=== PATIENT | female | born 1980 | race American Indian/Alaskan Native ===

== ENCOUNTER 2016-08-31 13:30 | Emergency (ER) | payer SELFPAY ==
[2016-08-31 13:51] VITALS: BP 151/94
[2016-08-31 14:11] LABS: Basophils % (Auto) 1.3 % (0.0-1.8); Eosinophils % (Auto) 1.6 % (0.0-4.3); Hematocrit 32.1 % (30.3-42.9); Mean Corpuscular HGB Conc 31 % (30-34); Mean Corpuscular Volume 78 fl (79-97); Red Blood Count 4.15 M/mm3 (3.65-5.03); Red Cell Distribution Width 18.2 % (13.2-15.2); White Blood Count 3.6 K/mm3 (4.5-11.0)
[2016-08-31 14:12] LABS: Mean Corpuscular Hemoglobin 24 pg (28-32); Platelet Count 99 K/mm3 (140-440)
[2016-08-31 14:30] LABS: Anion Gap 17 mmol/L; Blood Urea Nitrogen 9 mg/dL (7-17); Calcium 8.9 mg/dL (8.4-10.2); Carbon Dioxide 24 mmol/L (22-30); Chloride 99.3 mmol/L (98-107); Glucose 85 mg/dL (65-100); Potassium 3.6 mmol/L (3.6-5.0); Sodium 137 mmol/L (137-145)
--- NOTE | 2016-09-03 01:42 | ED Elopement Review ---
ED Pt Elopement review - Results review Lab results: Laboratory Tests 08/31/16 08/31/16 08/31/16 13:56 13:56 13:56 WBC 3.6 L RBC 4.15 Hgb 10.0 L Hct 32.1 MCV 78 L MCH 24 L MCHC 31 RDW 18.2 H Plt Count 99 L Lymph % (Auto) 29.2 Guthrie % (Auto) 13.5 H Eos % (Auto) 1.6 Baso % (Auto) 1.3 Lymph # 1.1 L Guthrie # 0.5 Eos # 0.1 Baso # 0.0 Seg Neutrophils % 54.4 Seg Neutrophils # 2.0 Sodium 137 Potassium 3.6 Chloride 99.3 Carbon Dioxide 24 Anion Gap 17 BUN 9 Creatinine 0.6 L Estimated GFR > 60 BUN/Creatinine Ratio 15.00 Glucose 85 Calcium 8.9 Troponin T < 0.010 HCG, Qual Negative 08/31/16 16:37 WBC RBC Hgb Hct MCV MCH MCHC RDW Plt Count Lymph % (Auto) Guthrie % (Auto) Eos % (Auto) Baso % (Auto) Lymph # Guthrie # Eos # Baso # Seg Neutrophils % Seg Neutrophils # Sodium Potassium Chloride Carbon Dioxide Anion Gap BUN Creatinine Estimated GFR BUN/Creatinine Ratio Glucose Calcium Troponin T < 0.010 HCG, Qual - Call Back decision Pt Call Back Decision: Pt to F/U with PMD
== END 2016-09-01 03:20 | disposition left against medical advice (07) ==
LOC: ED 13:30
DX: R07.9 Chest pain, unspecified (principal); Z53.21 Procedure and treatment not carried out due to patient leaving prior to being seen by health care provider
CPT/HCPCS: 36415; 80048; 84484; 84703; 85025; 93005; 93010

== ENCOUNTER 2016-09-01 10:50 | Emergency (ER) | payer SELFPAY ==
[2016-09-01 11:20] VITALS: BP 118/75
--- NOTE | 2016-09-01 11:25 | Emergency Department Report ---
Chief Complaint: Chest Pain Stated Complaint: CHEST PAIN Time Seen by Provider: 09/01/16 11:20 - HPI History of Present Illness: 36-year-old -[place] female with a past medical history of hypertension scoliosis and a history of bronchitis in the past comes in today for chest pain shortness of breathing that started on . Patient reports that she had a panic attack on and then she started having chest pains a little bit later. Denies any nausea vomiting. No fever no chills. Patient reports that the pain is constant but will be sharp when she bends over or lifts anything. Denies any diaphoresis no radiation of the pain. - Exam Vital Signs: Vital Signs 09/01/16 11:14 Temperature 98.3 F Pulse Rate 85 Respiratory 20 Rate Blood Pressure 118/75 O2 Sat by Pulse 100 Oximetry Physical Exam: Alert and oriented 3. Cardiovascular S1-S2 regular rate and rhythm respiratory clear to auscultation bilateral. Some chest tenderness with palpation left upper chest and midsternal. Abdomen soft nontender nondistended bowel sounds throughout. [facility] screening note: Focused history and physical exam performed. Due to findings the following was ordered: Patient's been evaluated by this provider in [facility]. Chest pain protocol has been ordered. Patient will be evaluated in the main ER ED Disposition for [facility] Condition: Stable
[2016-09-01 11:51] LABS: Basophils % (Auto) 1.2 % (0.0-1.8); Eosinophils % (Auto) 2.2 % (0.0-4.3); Hematocrit 28.4 % (30.3-42.9); Hemoglobin 9.1 gm/dl (10.1-14.3); Mean Corpuscular HGB Conc 32 % (30-34); Mean Corpuscular Volume 77 fl (79-97); Red Blood Count 3.67 M/mm3 (3.65-5.03); Red Cell Distribution Width 17.6 % (13.2-15.2); White Blood Count 3.6 K/mm3 (4.5-11.0)
[2016-09-01 11:55] LABS: Mean Corpuscular Hemoglobin 25 pg (28-32); Platelet Count 88 K/mm3 (140-440)
[2016-09-01 12:14] LABS: Alanine Aminotransferase 15 units/L (7-56); Albumin/Globulin Ratio 1.2 %; Alkaline Phosphatase 52 units/L (35-129); Anion Gap 18 mmol/L; BUN/Creatinine Ratio 16.66; Bilirubin,Direct < 0.2 mg/dL (0-0.2); Bilirubin,Total 0.2 mg/dL (0.1-1.2); Blood Urea Nitrogen 10 mg/dL (7-17); Calcium 8.8 mg/dL (8.4-10.2); Carbon Dioxide 23 mmol/L (22-30); Creatine Kinase 70 units/L (30-135); Creatine Kinase MB 1.1 ng/mL (0.0-4.0); Glucose 98 mg/dL (65-100); Lipase 29 units/L (13-60); Potassium 3.7 mmol/L (3.6-5.0); Sodium 137 mmol/L (137-145); Total Protein 7.4 g/dL (6.3-8.2)
[2016-09-01 18:02] LABS: Creatine Kinase MB 1.1 ng/mL (0.0-4.0)
[2016-09-01 18:04] LABS: Creatine Kinase 64 units/L (30-135)
== END 2016-09-01 20:24 | disposition left against medical advice (07) ==
LOC: ED 10:50
DX: R07.89 Other chest pain (principal); Z53.21 Procedure and treatment not carried out due to patient leaving prior to being seen by health care provider
CPT/HCPCS: 36415; 80048; 80074; 82550; 82553; 83690; 84484; 84702; 85025; 93005; 93010

== ENCOUNTER 2016-10-28 00:15 | Emergency (ER) | payer SELFPAY ==
[2016-10-28 01:55] LABS: Bacteria,Urine 1+ /HPF (Negative); Bilirubin,Urine NEG (Negative); Blood,Urine LG (Negative); Ketones,Urine NEG (Negative); Leukocyte Esterase,Urine SM (Negative); Mucus,Urine 2+ /HPF; Nitrite,Urine NEG (Negative); Urobilinogen,Urine < 2.0 mg/dL (<2.0)
[2016-10-28 02:11] LABS: RBC,Urine > 182.0 /HPF (0.0-6.0)
[2016-10-28] MEDS ORDERED: TORADOL IM ONE (03:47)
[2016-10-28] MEDS ORDERED: VALIUM PO ONE (03:47)
--- NOTE | 2016-10-28 03:48 | Emergency Department Report ---
ED Back Pain/Injury HPI - General Chief Complaint: Back Pain/Injury Stated Complaint: BACK PAIN/POSS STRAINED MUSCLE Time Seen by Provider: 10/28/16 03:02 Source: patient Limitations: No Limitations - History of Present Illness Initial Comments: 36-year-old female past medical history hypertension presents with complaint of mid back pain status post bending down to hand picker an object she dropped at work. Patient states that when she stood up and straightened out her back she felt sharp spasm in the right upper midportion of her back. This occurred approximately 3 days ago. Patient took Motrin at home with minimal to no relief of her pain. Patient currently complaining of spastic back pain. Denies any chest pain no nausea no vomiting no fever no chills no shortness of breath reported. No upper or lower extremity paresthesias reported. Patient is fully ambulatory without assistance Complaint: back pain Onset/Timin -: days(s) Place: home Radiation: none Severity: moderate Severity scale (0 -10): 7 Quality: sharp, other (spasm) Context: while lifting, turning/twisting, bending - Related Data Previous Rx's Medication Instructions Recorded Last Taken Type Cyclobenzaprine [Flexeril] 10 mg PO TID PRN #12 tablet 10/28/16 Unknown Rx Naproxen [Naprosyn TAB] 500 mg PO BID PRN #25 tablet 10/28/16 Unknown Rx Allergies Allergy/AdvReac Type Severity Reaction Status Date / Time No Known Allergies Allergy Unverified 08/31/16 13:47 ED Review of Systems ROS: Stated complaint: BACK PAIN/POSS STRAINED MUSCLE Other details as noted in HPI Constitutional: denies: chills, fever Eyes: denies: eye pain, eye discharge, vision change ENT: denies: ear pain, throat pain Respiratory: denies: cough, shortness of breath, wheezing Cardiovascular: denies: chest pain, palpitations Endocrine: no symptoms reported Gastrointestinal: denies: abdominal pain, nausea, diarrhea Genitourinary: denies: urgency, dysuria, discharge Musculoskeletal: denies: back pain, joint swelling, arthralgia Skin: denies: rash, lesions Neurological: denies: headache, weakness, paresthesias Psychiatric: denies: anxiety, depression Hematological/Lymphatic: denies: easy bleeding, easy bruising ED Past Medical Hx - Past Medical History Previous Medical History?: Yes Hx Hypertension: Yes Hx Headaches / Migraines: Yes Additional medical history: anxiety - Surgical History Past Surgical History?: No - Social History Smoking Status: Never Smoker Substance Use Type: None - Medications Home Medications: Home Medications Medication Instructions Recorded Confirmed Last Taken Type Cyclobenzaprine [Flexeril] 10 mg PO TID PRN #12 tablet 10/28/16 Unknown Rx Naproxen [Naprosyn TAB] 500 mg PO BID PRN #25 tablet 10/28/16 Unknown Rx ED Physical Exam - General Limitations: No Limitations General appearance: alert, in no apparent distress - Head Head exam: Present: atraumatic, normocephalic - Eye Eye exam: Present: normal appearance, PERRL, EOMI - ENT ENT exam: Present: mucous membranes moist - Neck Neck exam: Present: normal inspection - Respiratory Respiratory exam: Present: normal lung sounds bilaterally. Absent: respiratory distress - Cardiovascular Cardiovascular Exam: Present: regular rate, normal rhythm. Absent: systolic murmur, diastolic murmur, rubs, gallop - GI/Abdominal GI/Abdominal exam: Present: soft, normal bowel sounds - Extremities Exam Extremities exam: Present: normal inspection - Back Exam Back exam: Present: normal inspection, muscle spasm (muscle spasm right side trapezius region), paraspinal tenderness - Neurological Exam Neurological exam: Present: alert, oriented X3, CN II-XII intact, normal gait - Psychiatric Psychiatric exam: Present: normal affect, normal mood - Skin Skin exam: Present: warm, dry, intact, normal color. Absent: rash ED Course Vital Signs 10/28/16 10/28/16 00:45 04:14 Temperature 98.4 F Pulse Rate 85 Respiratory 18 20 Rate Blood Pressure 152/99 O2 Sat by Pulse 100 Oximetry ED Medical Decision Making - Medical Decision Making A/P: Back muscle spasm, trapezius muscle strain 1-patient is fully ambulatory no saddle paresthesias the upper lobectomy paresthesias strength is 5 out of 5 all extremities no signs of cord compression or cauda equina no bladder or bowel incontinence reported by patient , no direct trauma to spine no falls 2-patient feels significant relief of pain with Valium and Toradol. 3-discharge patient with course of naproxen and Flexeril 4-patient has no urinary symptoms currently on her menstrual period which accounts for WBCs and blood in urine. 5- no signs of herpetic lesions on back no shingles Critical care attestation.: If time is entered above; I have spent that time in minutes in the direct care of this critically ill patient, excluding procedure time. ED Disposition Clinical Impression: Back muscle spasm Disposition: DISCHARGED TO HOME OR SELFCARE Is pt being admited?: No Does the pt Need Aspirin: No Condition: Stable Instructions: Muscle Spasm (ED), Back Pain (ED) Prescriptions: Cyclobenzaprine [Flexeril] 10 mg PO TID PRN #12 tablet PRN Reason: Muscle Spasm Naproxen [Naprosyn TAB] 500 mg PO BID PRN #25 tablet PRN Reason: Pain Referrals: [facility] [Provider Group] - 3-5 Days Forms: Work/School Release Form(ED) Time of Disposition: 05:45
[2016-10-28 05:45] VITALS: BP 145/90
== END 2016-10-28 06:13 | disposition home or self-care (01) ==
LOC: ED 00:15
DX: M62.830 Muscle spasm of back (principal); I10 Essential (primary) hypertension; G43.909 Migraine, unspecified, not intractable, without status migrainosus
CPT/HCPCS: 81001; 81025; 96372; 99283; J1885

== ENCOUNTER 2016-12-12 14:04 | Emergency (ER) | payer SELFPAY ==
[2016-12-12 14:32] VITALS: BP 137/85
[2016-12-12 15:27] LABS: Anion Gap 19 mmol/L; BUN/Creatinine Ratio 17.14; Basophils % (Auto) 0.7 % (0.0-1.8); Blood Urea Nitrogen 12 mg/dL (7-17); Calcium 9.2 mg/dL (8.4-10.2); Carbon Dioxide 21 mmol/L (22-30); Chloride 101.8 mmol/L (98-107); Eosinophils % (Auto) 0.3 % (0.0-4.3); Glucose 97 mg/dL (65-100); Mean Corpuscular HGB Conc 31 % (30-34); Mean Corpuscular Hemoglobin 23 pg (28-32); Mean Corpuscular Volume 74 fl (79-97); Platelet Count 106 K/mm3 (140-440); Potassium 3.4 mmol/L (3.6-5.0); Red Blood Count 3.89 M/mm3 (3.65-5.03); Red Cell Distribution Width 16.7 % (13.2-15.2); Sodium 138 mmol/L (137-145); White Blood Count 4.8 K/mm3 (4.5-11.0)
[2016-12-13] MEDS ORDERED: NITRO-BID 2% TP ONE (01:39)
[2016-12-13] MEDS ORDERED: ZOFRAN IV ONE (01:39)
[2016-12-13] MEDS ORDERED: MORPHINE IV ONE (01:39)
[2016-12-13] MEDS ORDERED: ASPIRIN PO ONE (01:40)
--- NOTE | 2016-12-13 01:50 | Emergency Department Report ---
HPI - General Chief Complaint: Chest Pain Time Seen by Provider: 12/13/16 01:31 - HPI HPI: Room 6 The patient is a 36-year-old female presenting with a chief complaint of chest pain. The patient states today at noon she developed substernal chest pain of sharp in nature and associated with diaphoresis shortness of breath and nausea without vomiting. Patient states the pain has been constant waxing and waning and increases with exertion. Patient currently gives her chest pain score of 7/ 10. Patient states her last stress test occurred in 2010 she's never had a cardiac catheterization. Patient denies any history of fever Location: Substernal chest Duration: Constant since noon Quality: Sharp Severity: 7/10 Modifying factors: Exertion increases chest pain Context: [see above] Mode of transportation: Unknown ED Past Medical Hx - Past Medical History Previous Medical History?: Yes Hx Hypertension: Yes Hx Headaches / Migraines: Yes Additional medical history: anxiety - Surgical History Past Surgical History?: No - Family History Family history: no significant - Social History Smoking Status: Never Smoker Substance Use Type: None (denies illicit drug use), Alcohol (occasional) - Medications Home Medications: Home Medications Medication Instructions Recorded Confirmed Last Taken Type Cyclobenzaprine [Flexeril] 10 mg PO TID PRN #12 tablet 10/28/16 Unknown Rx Naproxen [Naprosyn TAB] 500 mg PO BID PRN #25 tablet 10/28/16 Unknown Rx ED Review of Systems ROS: Stated complaint: CHEST PAIN/SOB/NAUSEA Other details as noted in HPI Comment: All other systems reviewed and negative Constitutional: diaphoresis Eyes: denies: eye pain, eye discharge, vision change ENT: denies: ear pain, throat pain Respiratory: shortness of breath Cardiovascular: chest pain Endocrine: no symptoms reported Gastrointestinal: nausea. denies: vomiting Genitourinary: denies: urgency, dysuria, discharge Musculoskeletal: denies: back pain, joint swelling, arthralgia Skin: denies: rash, lesions Neurological: as per HPI Psychiatric: denies: anxiety, depression Hematological/Lymphatic: denies: easy bleeding, easy bruising Physical Exam - Physical Exam Vital Signs: Vital Signs 12/12/16 14:26 Temperature 98.6 F Pulse Rate 91 H Respiratory 20 Rate Blood Pressure 137/85 O2 Sat by Pulse 100 Oximetry Physical Exam: GENERAL: The patient is well-developed well-nourished female lying on stretcher not appearing to be in acute distress. [] HEENT: Normocephalic. Atraumatic. Extraocular motions are intact. Patient has moist mucous membranes. NECK: Supple. Trachea midline CHEST/LUNGS: Clear to auscultation. There is no respiratory distress noted. HEART/CARDIOVASCULAR: Regular. There is no tachycardia. There is no gallop rub or murmur. ABDOMEN: Abdomen is soft, nontender. Patient has normal bowel sounds. There is no abdominal distention. SKIN: There is no rash. There is no edema. There is no diaphoresis. NEURO: The patient is awake, alert, and oriented. The patient is cooperative. The patient has normal speech MUSCULOSKELETAL: There is no evidence of acute injury. ED Course Vital Signs 12/12/16 14:26 Temperature 98.6 F Pulse Rate 91 H Respiratory 20 Rate Blood Pressure 137/85 O2 Sat by Pulse 100 Oximetry ED Medical Decision Making - Lab Data Result diagrams: 12/12/16 14:45 12/12/16 14:45 Laboratory Tests 12/12/16 12/12/16 12/12/16 14:45 14:45 14:45 WBC 4.8 RBC 3.89 Hgb 9.0 L Hct 29.0 L MCV 74 L MCH 23 L MCHC 31 RDW 16.7 H Plt Count 106 L Lymph % (Auto) 15.0 Armstrong % (Auto) 12.0 H Eos % (Auto) 0.3 Baso % (Auto) 0.7 Lymph # 0.7 L Armstrong # 0.6 Eos # 0.0 Baso # 0.0 Seg Neutrophils % 72.0 H Seg Neutrophils # 3.4 Sodium 138 Potassium 3.4 L Chloride 101.8 Carbon Dioxide 21 L Anion Gap 19 BUN 12 Creatinine 0.7 Estimated GFR > 60 BUN/Creatinine Ratio 17.14 Glucose 97 Calcium 9.2 Troponin T < 0.010 HCG, Qual Negative 12/12/16 12/12/16 18:13 20:51 WBC RBC Hgb Hct MCV MCH MCHC RDW Plt Count Lymph % (Auto) Armstrong % (Auto) Eos % (Auto) Baso % (Auto) Lymph # Armstrong # Eos # Baso # Seg Neutrophils % Seg Neutrophils # Sodium Potassium Chloride Carbon Dioxide Anion Gap BUN Creatinine Estimated GFR BUN/Creatinine Ratio Glucose Calcium Troponin T < 0.010 < 0.010 HCG, Qual - EKG Data -: EKG Interpreted by Me EKG shows normal: sinus rhythm Rate: normal - EKG Data When compared to previous EKG there are: previous EKG unavailable Interpretation: other (no ischemic changes seen) - Radiology Data Radiology results: image reviewed (chest x-ray) interpreted by me: Chest [id number]? No focal infiltrates, no pneumothorax - Differential Diagnosis ACS, exertional angina, pericarditis, GERD, pneumonia Critical care attestation.: If time is entered above; I have spent that time in minutes in the direct care of this critically ill patient, excluding procedure time. ED Disposition Clinical Impression: Chest pain Disposition: DC-09 OP ADMIT IP TO THIS HOSP Is pt being admited?: Yes Does the pt Need Aspirin: Yes Condition: Fair Instructions: Chest Pain (ED) Referrals: PRIMARY CARE, [Primary Care Provider] - 3-5 Days Time of Disposition: 02:11 (hospitalist paged)
--- NOTE | 2016-12-13 07:14 | XRay Report ---
Single view chest: History: Chest pain. Findings: Normal cardiomediastinal silhouette. Trachea is midline. No consolidation, pneumothorax or pleural effusion. Impression: No acute cardiopulmonary findings.
== END 2016-12-13 02:38 | disposition admitted as inpatient to this hospital (09) ==
LOC: ED 14:04
DX: R07.2 Precordial pain (principal); R06.02 Shortness of breath; R11.0 Nausea; F41.9 Anxiety disorder, unspecified; I10 Essential (primary) hypertension; G43.909 Migraine, unspecified, not intractable, without status migrainosus
CPT/HCPCS: 36415; 71010; 80048; 84484; 84703; 85025; 93005; 93010; 99285

== ENCOUNTER 2017-01-26 12:16 | Emergency (ER) | payer SELFPAY ==
[2017-01-26 12:26] VITALS: BP 153/95
[2017-01-26] MEDS ORDERED: TORADOL IM ONE (12:49)
--- NOTE | 2017-01-26 12:54 | Emergency Department Report ---
ED General Adult HPI - General Chief complaint: Pain General Stated complaint: BODY PAIN HIGH BLOOD PRESSURE Time Seen by Provider: 01/26/17 12:28 Source: patient Mode of arrival: Ambulatory Limitations: No Limitations - History of Present Illness Initial comments: This is a 36-year-old female nontoxic, well nourished in appearance, no acute signs of distress the patient's ED complaining of body aches/pain and medication refill. Patient stated she developed body aches since 1996 due to scoliosis and receiving epidural. Patient stated that she had body ache and pain. Patient denies any recent trauma or injuries. Patient also states she takes lisinopril 25 mg daily that is prescribed by her primary care doctor the patient stated she just moved April 2016 and does not have a primary care doctor to follow. Patient denies any numbness, tingling, chest pain, shortness of breath, stiff neck, headache, fever, chills, abdominal pain or pelvic pain. Patient denies any allergies. History of hypertension and migraine headaches. Patient stated body aches is a little relief with Percocet and patient is requesting for refill of Percocet medication. MD Complaint: body aches/medication refill -: Gradual, year(s) Radiation: non-radiation Severity scale (0 -10): 9 Quality: aching Consistency: constant Improves with: movement (Percocet) Associated Symptoms: denies other symptoms. denies: confusion, chest pain, cough, diaphoresis, fever/chills, headaches, loss of appetite, malaise, nausea/ vomiting, rash, seizure, shortness of breath, syncope, weakness Treatments Prior to Arrival: none - Related Data Previous Rx's Medication Instructions Recorded Last Taken Type Cyclobenzaprine [Flexeril] 10 mg PO TID PRN #12 tablet 10/28/16 Unknown Rx Naproxen [Naprosyn TAB] 500 mg PO BID PRN #25 tablet 10/28/16 Unknown Rx Ibuprofen [Motrin 600 MG tab] 600 mg PO Q8H PRN #30 tablet 01/26/17 Unknown Rx Lisinopril [Zestril TAB] 25 mg PO QDAY #15 tab 01/26/17 Unknown Rx Allergies Allergy/AdvReac Type Severity Reaction Status Date / Time No Known Allergies Allergy Verified 12/12/16 14:25 ED Review of Systems ROS: Stated complaint: BODY PAIN HIGH BLOOD PRESSURE Other details as noted in HPI Constitutional: denies: chills, fever Eyes: denies: eye pain, eye discharge, vision change ENT: denies: ear pain, throat pain Respiratory: denies: cough, shortness of breath, wheezing Cardiovascular: denies: chest pain, palpitations Endocrine: no symptoms reported Gastrointestinal: denies: abdominal pain, nausea, diarrhea Genitourinary: denies: urgency, dysuria, discharge Musculoskeletal: denies: back pain, joint swelling, arthralgia Skin: denies: rash, lesions Neurological: denies: headache, weakness, paresthesias Psychiatric: denies: anxiety, depression Hematological/Lymphatic: denies: easy bleeding, easy bruising 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, Scoliosis - Surgical History Past Surgical History?: No - Social History Smoking Status: Never Smoker Substance Use Type: Alcohol, Non Opiate Pain, Prescribed - Medications Home Medications: Home Medications Medication Instructions Recorded Confirmed Last Taken Type Cyclobenzaprine [Flexeril] 10 mg PO TID PRN #12 tablet 10/28/16 Unknown Rx Naproxen [Naprosyn TAB] 500 mg PO BID PRN #25 tablet 10/28/16 Unknown Rx Ibuprofen [Motrin 600 MG tab] 600 mg PO Q8H PRN #30 tablet 01/26/17 Unknown Rx Lisinopril [Zestril TAB] 25 mg PO QDAY #15 tab 01/26/17 Unknown Rx ED Physical Exam - General Limitations: No Limitations General appearance: alert, in no apparent distress - Head Head exam: Present: atraumatic, normocephalic, normal inspection - Eye Eye exam: Present: normal appearance, PERRL, EOMI. Absent: scleral icterus, conjunctival injection, nystagmus, periorbital swelling, periorbital tenderness Pupils: Present: normal accommodation - ENT ENT exam: Present: normal exam, normal orophraynx, mucous membranes moist, TM's normal bilaterally, normal external ear exam - Neck Neck exam: Present: normal inspection, full ROM. Absent: tenderness, meningismus, lymphadenopathy, thyromegaly - Respiratory Respiratory exam: Present: normal lung sounds bilaterally. Absent: respiratory distress, wheezes, rales, rhonchi, stridor, chest wall tenderness, accessory muscle use, decreased breath sounds, prolonged expiratory - Cardiovascular Cardiovascular Exam: Present: regular rate, normal rhythm, normal heart sounds. Absent: bradycardia, tachycardia, irregular rhythm, systolic murmur, diastolic murmur, rubs, gallop - GI/Abdominal GI/Abdominal exam: Present: soft, normal bowel sounds. Absent: distended, tenderness, guarding, rebound, rigid, diminished bowel sounds - Rectal Rectal exam: Present: deferred - Extremities Exam Extremities exam: Present: normal inspection, full ROM, normal capillary refill. Absent: tenderness, pedal edema, joint swelling, calf tenderness - Back Exam Back exam: Present: normal inspection, full ROM. Absent: tenderness, CVA tenderness (R), CVA tenderness (L), muscle spasm, paraspinal tenderness, vertebral tenderness, rash noted - Neurological Exam Neurological exam: Present: alert, oriented X3, CN II-XII intact, normal gait, reflexes normal - Expanded Neurological Exam Expanded Patient oriented to: Present: person, place, time Speech: Present: fluid speech Cranial nerves: EOM's Intact: Normal, Gag Reflex: Normal, Tongue Deviation: Normal, Nystagmus: Normal, Facial Sensation: Normal, Facial Palsy with Forehead Movement: Normal, Facial Palsy without Forehead Movement: Normal Cerebellar function: Finger to Nose: Normal, Heel to Miller: Normal, Romberg: Normal Upper motor neuron: Varinder Neglect: Normal, Pronator Drift: Normal, Babinski Sign : Normal, Sensory Extinction: Normal Sensory exam: Upper Extremity Light Touch: Normal, Upper Extremity Pin Prick: Normal, Upper Extremity Temperature: Normal, UE 2 Point Discrimination: Normal, Lower Extremity Light Touch: Normal, Lower Extremity Pin Prick: Normal, Lower Extremity Temperature: Normal, LE 2 Point Discrimination: Normal Motor strength exam: RUE: 5, LUE: 5, RLE: 5, LLE: 5 DTR: bicep (R): 2+, bicep (L): 2+, tricep (R): 2+, tricep (L): 2+, knee (R): 2+ , knee (L): 2+, ankle (R): 2+, ankle (L): 2+ Best Eye Response (Dusty): (4) open spontaneously Best Motor Response (Kiester): (6) obeys commands Best Verbal Response (Kiester): (5) oriented Dusty Total: 15 - Psychiatric Psychiatric exam: Present: normal affect, normal mood - Skin Skin exam: Present: warm, dry, intact, normal color. Absent: rash ED Course Vital Signs 01/26/17 01/26/17 12:20 12:59 Temperature 98.5 F Pulse Rate 78 Respiratory 18 18 Rate Blood Pressure 153/95 O2 Sat by Pulse 100 Oximetry - Reevaluation(s) Reevaluation #1: 01/26/17 12:54 Patient is able speak full sentences with no signs of distress. Reevaluation #2: 01/26/17 13:41 Patient is laying in bed comfortably and stated bodyaches has subsided after medical treatment in the ED. ED Medical Decision Making - Medical Decision Making ED course; this is a 36-year-old female that presents with body aches and medication refill 1- patient was examined myself. I notified the patient that I will prescribe patient ibuprofen as a first line of treatment and if she was never leads I refer patient to her primary care doctor. I also refilled patient's lisinopril 25 mg and instructed patient to take on a daily basis and to monitor her blood pressure in the morning, afternoon and evening time. I instructed the patient to follow up with a primary care doctor in 3-5 days or if symptoms such as dizziness, low blood pressure, fever, chills, chest pain, shortness of breath, headache nausea or vomiting return to emergency room as soon as possible. At time time of discharge, the patient does not seem toxic or ill in appearance. No acute signs of distress noted. Patient agrees to discharge treatment plan of care. No further questions noted by the patient. Critical care attestation.: If time is entered above; I have spent that time in minutes in the direct care of this critically ill patient, excluding procedure time. ED Disposition Clinical Impression: Body aches, Medication refill Disposition: DC-01 TO HOME OR SELFCARE Is pt being admited?: No Does the pt Need Aspirin: No Condition: Stable Instructions: Lisinopril (By mouth), Ibuprofen (By mouth), DASH Eating Plan (ED ), Low Sodium Diet (ED) Additional Instructions: follow up with a primary care doctor in 3-5 days or if symptoms such as dizziness, low blood pressure, fever, chills, chest pain, shortness of breath, headache nausea or vomiting return to emergency room as soon as possible. Monitor blood pressure daily morning, evening, and after noontime. Prescriptions: Ibuprofen [Motrin 600 MG tab] 600 mg PO Q8H PRN #30 tablet PRN Reason: Pain Lisinopril [Zestril TAB] 25 mg PO QDAY #15 tab Referrals: PRIMARY CAREMD [Primary Care Provider] - 3-5 Days ABEL GARZA MD [Staff Physician] - 3-5 Days YANA CHRISTIANSON MD [Staff Physician] - 3-5 Days [facility] [Outside] - 3-5 Days [facility] [Outside] - 3-5 Days Forms: Work/School Release Form(ED)
== END 2017-01-26 14:25 | disposition home or self-care (01) ==
LOC: ED 12:16
DX: M79.1 Myalgia (principal); Z76.0 Encounter for issue of repeat prescription; I10 Essential (primary) hypertension; G43.909 Migraine, unspecified, not intractable, without status migrainosus; F41.9 Anxiety disorder, unspecified; M41.9 Scoliosis, unspecified
CPT/HCPCS: 96372; 99282; J1885

== ENCOUNTER 2017-03-31 11:29 | Emergency (ER) | payer SELFPAY ==
[2017-03-31 11:45] VITALS: BP 135/81
--- NOTE | 2017-03-31 13:18 | Emergency Department Report ---
ED General Adult HPI - General Chief complaint: Extremity Injury, Upper Stated complaint: BACK PAIN/ARM PAIN POST FALL Time Seen by Provider: 03/31/17 13:14 Source: patient Mode of arrival: Ambulatory Limitations: No Limitations - History of Present Illness Initial comments: 37-year-old female presents to the ED complaining about left-sided neck pain and left lower back pain after fall 2 days ago. States that she is having aching pain without radiation. States pain is worse to her neck when she turns her head left. States pain to her lower back which is putting pressure on her left leg. States that she is able to ambulate and has no trouble with bowel movements or urination. Denies other injury. -: Gradual, days(s) (2) - Related Data Previous Rx's Medication Instructions Recorded Last Taken Type Cyclobenzaprine [Flexeril] 10 mg PO TID PRN #12 tablet 10/28/16 Unknown Rx Naproxen [Naprosyn TAB] 500 mg PO BID PRN #25 tablet 10/28/16 Unknown Rx Ibuprofen [Motrin 600 MG tab] 600 mg PO Q8H PRN #30 tablet 01/26/17 Unknown Rx Lisinopril [Zestril TAB] 25 mg PO QDAY #15 tab 01/26/17 Unknown Rx Cyclobenzaprine [Flexeril] 10 mg PO TID PRN #20 tablet 03/31/17 Unknown Rx Diclofenac Sodium 75 mg PO BID #20 tablet. 03/31/17 Unknown Rx Allergies Allergy/AdvReac Type Severity Reaction Status Date / Time No Known Allergies Allergy Verified 12/12/16 14:25 ED Review of Systems ROS: Stated complaint: BACK PAIN/ARM PAIN POST FALL Other details as noted in HPI Constitutional: denies: chills, fever Eyes: denies: eye pain, eye discharge, vision change ENT: denies: ear pain, throat pain Respiratory: denies: cough, shortness of breath, wheezing Cardiovascular: denies: chest pain, palpitations Endocrine: no symptoms reported Gastrointestinal: denies: abdominal pain, nausea, diarrhea Genitourinary: denies: urgency, dysuria, discharge Musculoskeletal: back pain, myalgia. denies: joint swelling, arthralgia Skin: denies: rash, lesions Neurological: denies: headache, weakness, paresthesias Psychiatric: denies: anxiety, depression Hematological/Lymphatic: denies: easy bleeding, easy bruising ED Past Medical Hx - Past Medical History Hx Hypertension: Yes Hx Headaches / Migraines: Yes Additional medical history: anxiety, skin rash, 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, Scoliosis - Social History Smoking Status: Never Smoker Substance Use Type: None - Medications Home Medications: Home Medications Medication Instructions Recorded Confirmed Last Taken Type Cyclobenzaprine [Flexeril] 10 mg PO TID PRN #12 tablet 10/28/16 Unknown Rx Naproxen [Naprosyn TAB] 500 mg PO BID PRN #25 tablet 10/28/16 Unknown Rx Ibuprofen [Motrin 600 MG tab] 600 mg PO Q8H PRN #30 tablet 01/26/17 Unknown Rx Lisinopril [Zestril TAB] 25 mg PO QDAY #15 tab 01/26/17 Unknown Rx Cyclobenzaprine [Flexeril] 10 mg PO TID PRN #20 tablet 03/31/17 Unknown Rx Diclofenac Sodium 75 mg PO BID #20 tablet. 03/31/17 Unknown Rx ED Physical Exam - General Limitations: No Limitations General appearance: alert, in no apparent distress - Head Head exam: Present: atraumatic, normocephalic - Eye Eye exam: Present: normal appearance - ENT ENT exam: Present: mucous membranes moist - Neck Neck exam: Present: normal inspection, tenderness (paraspinal muscle tenderness to the left. No vertebral tenderness) - Respiratory Respiratory exam: Present: normal lung sounds bilaterally. Absent: respiratory distress - Cardiovascular Cardiovascular Exam: Present: regular rate, normal rhythm. Absent: systolic murmur, diastolic murmur, rubs, gallop - GI/Abdominal GI/Abdominal exam: Present: soft, normal bowel sounds - Extremities Exam Extremities exam: Present: normal inspection - Back Exam Back exam: Present: normal inspection, paraspinal tenderness. Absent: vertebral tenderness - Neurological Exam Neurological exam: Present: alert, oriented X3 - Psychiatric Psychiatric exam: Present: normal affect, normal mood - Skin Skin exam: Present: warm, dry, intact, normal color. Absent: rash ED Course Vital Signs 03/31/17 11:40 Temperature 98.5 F Pulse Rate 111 H Respiratory 20 Rate Blood Pressure 135/81 O2 Sat by Pulse 100 Oximetry ED Medical Decision Making - Medical Decision Making Patient is resting comfortably at this time. Patient has no bony tenderness. Patient vital signs are stable in no acute distress at this time. Critical care attestation.: If time is entered above; I have spent that time in minutes in the direct care of this critically ill patient, excluding procedure time. ED Disposition Clinical Impression: Cervical strain, acute, Lumbar strain Disposition: DC-01 TO HOME OR SELFCARE Is pt being admited?: No Does the pt Need Aspirin: No Condition: Good Instructions: Muscle Strain (ED) Prescriptions: Cyclobenzaprine [Flexeril] 10 mg PO TID PRN #20 tablet PRN Reason: Muscle Spasm Diclofenac Sodium 75 mg PO BID #20 tablet. Referrals: PRIMARY CARE, [Primary Care Provider] - 3-5 Days Forms: Work/School Release Form(ED) Time of Disposition: 13:18
== END 2017-03-31 13:44 | disposition home or self-care (01) ==
LOC: ED 11:29
DX: S16.1XXA Strain of muscle, fascia and tendon at neck level, initial encounter (principal); S39.012A Strain of muscle, fascia and tendon of lower back, initial encounter; I10 Essential (primary) hypertension; G43.909 Migraine, unspecified, not intractable, without status migrainosus; X58.XXXA Exposure to other specified factors, initial encounter; Y93.89 Activity, other specified; Y92.89 Other specified places as the place of occurrence of the external cause; Y99.8 Other external cause status
CPT/HCPCS: 81025; 99283

== ENCOUNTER 2017-04-11 15:39 | Emergency (ER) | payer SELFPAY ==
[2017-04-11] MEDS ORDERED: TORADOL IM ONE (20:44)
--- NOTE | 2017-04-11 20:51 | Emergency Department Report ---
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 -: unknown (this is chronic pain ) Location: back, upper extremity, lower extremity Radiation: back, extremity Severity scale (0 -10): 4 Quality: aching Consistency: constant Improves with: rest, other (prn pain meds ) Worsens with: other (prolonged standing sitting job duties ) Associated Symptoms: denies: confusion, chest pain, cough, diaphoresis, fever/ chills, headaches, loss of appetite, malaise, nausea/vomiting, rash, seizure, shortness of breath, syncope, weakness Treatments Prior to Arrival: none - Related Data Previous Rx's Medication Instructions Recorded Last Taken Type Cyclobenzaprine [Flexeril] 10 mg PO TID PRN #12 tablet 10/28/16 Unknown Rx Naproxen [Naprosyn TAB] 500 mg PO BID PRN #25 tablet 10/28/16 Unknown Rx Ibuprofen [Motrin 600 MG tab] 600 mg PO Q8H PRN #30 tablet 01/26/17 Unknown Rx Lisinopril [Zestril TAB] 25 mg PO QDAY #15 tab 01/26/17 Unknown Rx Cyclobenzaprine [Flexeril] 10 mg PO TID PRN #20 tablet 03/31/17 Unknown Rx Diclofenac Sodium 75 mg PO BID #20 tablet. 03/31/17 Unknown Rx Diclofenac Sodium [Voltaren] 1 applic TP TID PRN #1 tube 04/11/17 Unknown Rx Allergies Allergy/AdvReac Type Severity Reaction Status Date / Time No Known Allergies Allergy Verified 04/11/17 15:42 ED Review of Systems ROS: Stated complaint: PAIN ALL OVER Other details as noted in HPI Constitutional: denies: chills, fever Eyes: denies: eye pain, eye discharge, vision change ENT: denies: ear pain, throat pain Respiratory: denies: cough, shortness of breath, wheezing Cardiovascular: denies: chest pain, palpitations Endocrine: no symptoms reported Gastrointestinal: denies: abdominal pain, nausea, diarrhea Genitourinary: denies: urgency, dysuria, discharge Musculoskeletal: back pain, arthralgia, myalgia Skin: denies: rash, lesions Neurological: denies: headache, weakness, numbness, paresthesias, confusion, abnormal gait, vertigo Psychiatric: denies: anxiety, depression Hematological/Lymphatic: denies: easy bleeding, easy bruising ED Past Medical Hx - Past Medical History Hx Hypertension: Yes Hx Headaches / Migraines: Yes Additional medical history: anxiety, skin rash, 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, Scoliosis - Social History Smoking Status: Never Smoker Substance Use Type: None - Medications Home Medications: Home Medications Medication Instructions Recorded Confirmed Last Taken Type Cyclobenzaprine [Flexeril] 10 mg PO TID PRN #12 tablet 10/28/16 Unknown Rx Naproxen [Naprosyn TAB] 500 mg PO BID PRN #25 tablet 10/28/16 Unknown Rx Ibuprofen [Motrin 600 MG tab] 600 mg PO Q8H PRN #30 tablet 01/26/17 Unknown Rx Lisinopril [Zestril TAB] 25 mg PO QDAY #15 tab 01/26/17 Unknown Rx Cyclobenzaprine [Flexeril] 10 mg PO TID PRN #20 tablet 03/31/17 Unknown Rx Diclofenac Sodium 75 mg PO BID #20 tablet.dr 03/31/17 Unknown Rx Diclofenac Sodium [Voltaren] 1 applic TP TID PRN #1 tube 04/11/17 Unknown Rx ED Physical Exam - General Limitations: No Limitations General appearance: alert, in no apparent distress - Head Head exam: Present: atraumatic, normocephalic - Eye Eye exam: Present: normal appearance, PERRL, EOMI Pupils: Present: normal accommodation - ENT ENT exam: Present: mucous membranes moist - Neck Neck exam: Present: normal inspection, full ROM. Absent: tenderness, lymphadenopathy, thyromegaly - Respiratory Respiratory exam: Present: normal lung sounds bilaterally. Absent: respiratory distress, wheezes, stridor, chest wall tenderness - Cardiovascular Cardiovascular Exam: Present: regular rate, normal rhythm. Absent: systolic murmur, diastolic murmur, rubs, gallop - GI/Abdominal GI/Abdominal exam: Present: soft, normal bowel sounds - Rectal Rectal exam: Present: deferred - Extremities Exam Extremities exam: Present: normal inspection - Back Exam Back exam: Present: normal inspection, full ROM, tenderness, paraspinal tenderness (bilat paraspinus tenderness to deep palpation no weakness no numbness no tingling pos left straight leg raise). Absent: CVA tenderness (R), CVA tenderness (L), muscle spasm, vertebral tenderness, rash noted - Neurological Exam Neurological exam: Present: alert, oriented X3, CN II-XII intact, normal gait, reflexes normal. Absent: motor sensory deficit - Psychiatric Psychiatric exam: Present: normal affect, normal mood - Skin Skin exam: Present: warm, dry, intact, normal color. 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 Critical care attestation.: If time is entered above; I have spent that time in minutes in the direct care of this critically ill patient, excluding procedure time. ED Disposition Clinical Impression: Musculoskeletal pain Chronic back pain Qualifiers: Back pain location: low back pain Back pain laterality: bilateral Sciatica presence: with sciatica Sciatica laterality: sciatica of right side Qualified Code(s): M54.41 - Lumbago with sciatica, right side; G89.29 - Other chronic pain ; G89.29 - Other chronic pain Disposition: DC-01 TO HOME OR SELFCARE Is pt being admited?: No Does the pt Need Aspirin: No Condition: Good Instructions: Musculoskeletal Pain (ED) Prescriptions: Diclofenac Sodium [Voltaren] 1 applic TP TID PRN #1 tube PRN Reason: Pain Referrals: PRIMARY CARE, [Primary Care Provider] - 3-5 Days Forms: Work/School Release Form(ED) Time of Disposition: 21:03
[2017-04-11] MEDS ORDERED: TORADOL ONE (21:29)
[2017-04-12 02:20] VITALS: BP 122/75
== END 2017-04-11 21:32 | disposition home or self-care (01) ==
LOC: ED 15:39
DX: M54.89 Other dorsalgia (principal); G89.29 Other chronic pain; I10 Essential (primary) hypertension; G43.909 Migraine, unspecified, not intractable, without status migrainosus
CPT/HCPCS: 96372; 99282; J1885

== ENCOUNTER 2017-06-13 18:08 | Emergency (ER) | payer SELFPAY ==
[2017-06-13 18:31] VITALS: BP 160/91
[2017-06-13] MEDS ORDERED: TORADOL IM ONE (18:58)
[2017-06-13] MEDS ORDERED: FLEXERIL PO ONE (18:58)
[2017-06-13] MEDS ORDERED: ULTRAM PO ONE (18:59)
--- NOTE | 2017-06-13 19:08 | Emergency Department Report ---
ED Back Pain/Injury HPI - General Chief Complaint: Extremity Injury, Lower Stated Complaint: KNEE PAIN Time Seen by Provider: 06/13/17 18:57 Source: patient, RN notes reviewed, old records reviewed Mode of arrival: Ambulatory Limitations: No Limitations - History of Present Illness Initial Comments: NO TRAUMA A/C PAIN TOLD SHE NEEDED BREAST REDUCTION R LOW BACK PAIN RAD TO R BUTTOCKS AND LEG A/C ON FLEXERIL AND MOTRIN AT HOME BUT IT IS NOT WORKING MD Complaint: back pain -: Gradual, year(s) Similar Symptoms Previously: Yes Place: home Radiation: right leg Severity: moderate Quality: burning Consistency: intermittent Improves With: none Worsens With: other (WORK AND COLD) Context: other (WHILE AT WORK) Associated Symptoms: denies: confusion, weakness, chest pain, numbness, difficulty walking, cough, difficulty urinating - Related Data Previous Rx's Medication Instructions Recorded Last Taken Type Cyclobenzaprine [Flexeril] 10 mg PO TID PRN #12 tablet 10/28/16 Unknown Rx Ibuprofen [Motrin 600 MG tab] 600 mg PO Q8H PRN #30 tablet 01/26/17 Unknown Rx Lisinopril [Zestril TAB] 25 mg PO QDAY #15 tab 01/26/17 Unknown Rx predniSONE [Deltasone] 50 mg PO QDAY #5 tab 06/13/17 Unknown Rx Allergies Allergy/AdvReac Type Severity Reaction Status Date / Time No Known Allergies Allergy Verified 04/11/17 15:42 ED Review of Systems ROS: Stated complaint: KNEE PAIN Other details as noted in HPI Comment: All other systems reviewed and negative Musculoskeletal: back pain, other (RAD TO RLE) ED Past Medical Hx - Past Medical History anxiety, skin rash, 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, Scoliosis Family history: no significant family history ED Back Pain Physical Exam - Exam General: Vital signs noted. No distress. Alert and acting appropriately. Back/Abdomen: Yes Straight Leg Raise Pain (RLE), No Abdominal Tenderness, No Perithoracic Tenderness, No Perilumbar Tenderness, No Sacroiliac Tenderness, No Flank Tenderness Neuro: Yes Normal Sensation, Yes Normal DTR's, Yes Normal Gait, No Motor Weakness ED Course Vital Signs 06/13/17 18:27 Temperature 98 F Pulse Rate 73 Respiratory 18 Rate Blood Pressure 160/91 O2 Sat by Pulse 99 Oximetry - Reevaluation(s) Reevaluation #1: 06/13/17 19:06 TO ER W A/C SCIATICA PAIN NO FALL OR TRAUMA RAD TO RLE FROM R LUMBAR SPINE NO DYSURIA NO POINT TENDERNESS NO STEP OFF NO FEVER NO FOCAL NEURO DEF AMBULATORY MEDICATED HERE WILL CONTINUE HOME MEDS Critical care attestation.: If time is entered above; I have spent that time in minutes in the direct care of this critically ill patient, excluding procedure time. 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 FOLLOW UP WITH PCP AND OR ORTHO IF PERSISTS Referrals: PRIMARY CARE, [Primary Care Provider] - 3-5 Days BEATRICE DON MD [Staff Physician] - 3-5 Days [facility] [Outside] - 3-5 Days Time of Disposition: 19:08
== END 2017-06-13 19:26 | disposition home or self-care (01) ==
LOC: ED 18:08
DX: M54.5 Low back pain (principal); G89.29 Other chronic pain; M79.604 Pain in right leg
CPT/HCPCS: 96372; 99282; J1885

== ENCOUNTER 2017-07-16 13:25 | Emergency (ER) | payer OTHER ==
[2017-07-16 14:26] VITALS: BP 158/93
[2017-07-16] MEDS ORDERED: ASPIRIN PO ONE (14:26)
[2017-07-16 15:37] LABS: Basophils % (Auto) 0.7 % (0.0-1.8); Eosinophils # (Auto) 0.1 K/mm3 (0.0-0.4); Eosinophils % (Auto) 2.5 % (0.0-4.3); Hematocrit 34.2 % (30.3-42.9); Hemoglobin 10.8 gm/dl (10.1-14.3); Lymphocytes # (Auto) 1.2 K/mm3 (1.2-5.4); Lymphocytes % (Auto) 39.2 % (13.4-35.0); Mean Corpuscular HGB Conc 31 % (30-34); Mean Corpuscular Volume 80 fl (79-97); Monocytes # (Auto) 0.4 K/mm3 (0.0-0.8); Monocytes % (Auto) 14.9 % (0.0-7.3); Red Cell Distribution Width 17.7 % (13.2-15.2)
[2017-07-16 15:42] LABS: Mean Corpuscular Hemoglobin 25 pg (28-32); Platelet Count 93 K/mm3 (140-440)
[2017-07-16 15:44] LABS: BUN/Creatinine Ratio 14; Blood Urea Nitrogen 7 mg/dL (7-17); Calcium 9.4 mg/dL (8.4-10.2); Hemolysis Index 8
== END 2017-07-16 20:49 | disposition left against medical advice (07) ==
LOC: ED 13:25
DX: R07.9 Chest pain, unspecified (principal); Z53.21 Procedure and treatment not carried out due to patient leaving prior to being seen by health care provider
CPT/HCPCS: 36415; 80048; 84484; 85025; 93005; 93010

== ENCOUNTER 2017-07-20 11:07 | Emergency (ER) | payer SELFPAY ==
[2017-07-20 14:29] LABS: HCG Qualitative,Urine Negative (Negative)
--- NOTE | 2017-07-20 15:44 | XRay Report ---
FINAL REPORT PROCEDURE: XR FOOT 3+V RT TECHNIQUE: Right foot, three views HISTORY: pain,edema,injury COMPARISON: No prior studies are available for comparison. FINDINGS: No acute fracture or dislocation is seen. No focal osseous lesions are identified. There is dorsal soft tissue swelling. IMPRESSION: No acute fracture is seen
[2017-07-20] MEDS ORDERED: TYLENOL PO ONE (15:52)
[2017-07-20] MEDS ORDERED: MOTRIN PO ONE (15:52)
--- NOTE | 2017-07-20 15:57 | Emergency Department Report ---
ED Lower Extremity HPI - General Chief Complaint: Extremity Injury, Lower Stated Complaint: RIGHT FOOT PAIN Time Seen by Provider: 07/20/17 15:47 Source: patient Mode of arrival: Ambulatory Limitations: No Limitations - History of Present Illness Initial Comments: This is a 37-year-old female who presents to the ER with dorsal right-sided foot pain after something fell onto her foot on . No other injuries. No other complaints. The pain is sharp, increases with palpation and decreases with rest. No weakness, denies change in sensation MD Complaint: foot injury -: Sudden, days(s) Injury: Foot: Left Type of Injury: blunt Place: other Severity: moderate Improves With: rest Worsens With: weight bearing, movement, palpation Context: direct blow Associated Symptoms: swelling, able to partially bear weight. denies: numbness , tingling, ambulatory - Related Data Previous Rx's Medication Instructions Recorded Last Taken Type Cyclobenzaprine [Flexeril] 10 mg PO TID PRN #12 tablet 10/28/16 Unknown Rx Ibuprofen [Motrin 600 MG tab] 600 mg PO Q8H PRN #30 tablet 01/26/17 Unknown Rx Lisinopril [Zestril TAB] 25 mg PO QDAY #15 tab 01/26/17 Unknown Rx predniSONE [Deltasone] 50 mg PO QDAY #5 tab 06/13/17 Unknown Rx Acetaminophen [Tylenol Arthritis] 650 mg PO Q6HR PRN #30 tablet.er 07/20/17 Unknown Rx Ibuprofen [Motrin] 600 mg PO Q8H PRN #30 tablet 07/20/17 Unknown Rx Allergies Allergy/AdvReac Type Severity Reaction Status Date / Time No Known Allergies Allergy Verified 04/11/17 15:42 ED Review of Systems ROS: Stated complaint: RIGHT FOOT PAIN Other details as noted in HPI 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, Scoliosis - Surgical History Past Surgical History?: No - Social History Smoking Status: Never Smoker Substance Use Type: Alcohol - Medications Home Medications: Home Medications Medication Instructions Recorded Confirmed Last Taken Type Cyclobenzaprine [Flexeril] 10 mg PO TID PRN #12 tablet 10/28/16 Unknown Rx Ibuprofen [Motrin 600 MG tab] 600 mg PO Q8H PRN #30 tablet 01/26/17 Unknown Rx Lisinopril [Zestril TAB] 25 mg PO QDAY #15 tab 01/26/17 Unknown Rx predniSONE [Deltasone] 50 mg PO QDAY #5 tab 06/13/17 Unknown Rx Acetaminophen [Tylenol Arthritis] 650 mg PO Q6HR PRN #30 tablet.er 07/20/17 Unknown Rx Ibuprofen [Motrin] 600 mg PO Q8H PRN #30 tablet 07/20/17 Unknown Rx ED Physical Exam - General Limitations: No Limitations General appearance: alert, in no apparent distress, obese - Head Head exam: Present: atraumatic, normocephalic - Eye Eye exam: Present: normal appearance, EOMI - ENT ENT exam: Present: normal exam, normal orophraynx, mucous membranes moist, normal external ear exam - Neck Neck exam: Present: normal inspection, full ROM - Respiratory Respiratory exam: Present: normal lung sounds bilaterally. Absent: respiratory distress - Cardiovascular Cardiovascular Exam: Present: regular rate, normal rhythm, normal heart sounds. Absent: systolic murmur, diastolic murmur, rubs, gallop - GI/Abdominal GI/Abdominal exam: Present: soft, normal bowel sounds. Absent: distended, tenderness, guarding, rebound, rigid, pulsatile mass - Extremities Exam Extremities exam: Present: normal inspection, full ROM, normal capillary refill , other (2+ pulses noted in the bilateral upper and lower extremities. Compartments soft. There is no calcaneal tenderness, there is no fifth metatarsal tenderness, there is no redness, pus or streaking, dorsi and plantar flexion intact.). Absent: tenderness, pedal edema, joint swelling, calf tenderness - Back Exam Back exam: Present: normal inspection, full ROM. Absent: paraspinal tenderness , vertebral tenderness - Neurological Exam Neurological exam: Present: alert, oriented X3, CN II-XII intact, normal gait, other (Extraocular movements intact. Tongue midline. No facial droop. Facial sensation intact to light touch in the V1, V2, V3 distribution bilaterally. 5 and 5 strength in 4 extremities.. Sensation is intact to light touch in 4 extremities.). Absent: motor sensory deficit - Psychiatric Psychiatric exam: Present: normal affect, normal mood - Skin Skin exam: Present: warm, dry, intact, normal color. Absent: rash ED Course Vital Signs 07/20/17 11:48 Temperature 98.5 F Pulse Rate 89 Respiratory 16 Rate Blood Pressure 162/100 O2 Sat by Pulse 99 Oximetry ED Lower Extremity MDM - Lab Data Vital Signs 07/20/17 11:48 Temperature 98.5 F Pulse Rate 89 Respiratory 16 Rate Blood Pressure 162/100 O2 Sat by Pulse 99 Oximetry Lab Results 07/20/17 Range/Units 13:14 Urine HCG, Qual Negative (Negative) - Radiology Data Radiology results: report reviewed, image reviewed X-ray of the foot, interpreted by myself and radiology: No acute disease, no fracture, soft tissue swelling is noted - Medical Decision Making Assessment and plan: 29-year-old female with blunt foot trauma, no fracture noted on x-ray, no indication of cellulitis or crepitus, no indication of compartment syndrome, patient will be medicated with Tylenol and Motrin, weightbearing as tolerated, physical activities as tolerated, patient should follow-up with an outpatient primary care doctor. Differential diagnosis, including without limited to: Fracture, dislocation, blunt injury Critical care attestation.: If time is entered above; I have spent that time in minutes in the direct care of this critically ill patient, excluding procedure time. ED Disposition Clinical Impression: Right foot pain Disposition: DC-01 TO HOME OR SELFCARE Is pt being admited?: No Does the pt Need Aspirin: No Condition: Stable Instructions: Arthralgia (ED) Additional Instructions: Rest, and avoid heavy lifting. Avoid strenuous physical activity. Weightbearing as tolerated. Take pain medication as directed. 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 Return to the ER right away with new pain, worsened pain, migration of pain, weakness, numbness, unsteady gait. Please note that blood pressure was elevated , and this needs to be followed up by primary care doctor within the next month. Long-term complications of hypertension and elevated blood pressure include stroke, heart attack, disability, . Referrals: PRIMARY CARE, [Primary Care Provider] - 3-5 Days TIFF FISHER MD [Staff Physician] - 3-5 Days TERENCE DICKSON DPM [Staff Physician] - 3-5 Days Forms: Work/School Release Form(ED)
[2017-07-20 16:17] VITALS: BP 151/101
== END 2017-07-20 16:15 | disposition home or self-care (01) ==
LOC: ED 11:07
DX: M79.671 Pain in right foot (principal); M79.89 Other specified soft tissue disorders; I10 Essential (primary) hypertension; G43.909 Migraine, unspecified, not intractable, without status migrainosus; F41.9 Anxiety disorder, unspecified; W31.89XA Contact with other specified machinery, initial encounter; Y93.89 Activity, other specified; Y99.8 Other external cause status; Y92.89 Other specified places as the place of occurrence of the external cause
CPT/HCPCS: 81025; 99284

== ENCOUNTER 2017-10-05 14:43 | Emergency (ER) | payer SELFPAY ==
[2017-10-05] MEDS ORDERED: ASPIRIN PO ONE (15:04)
[2017-10-05 15:25] LABS: Basophils % (Auto) 0.5 % (0.0-1.8); Eosinophils # (Auto) 0.1 K/mm3 (0.0-0.4); Eosinophils % (Auto) 0.9 % (0.0-4.3); Hematocrit 34.8 % (30.3-42.9); Hemoglobin 11.2 gm/dl (10.1-14.3); Lymphocytes # (Auto) 0.9 K/mm3 (1.2-5.4); Lymphocytes % (Auto) 14.3 % (13.4-35.0); Mean Corpuscular HGB Conc 32 % (30-34); Mean Corpuscular Hemoglobin 27 pg (28-32); Mean Corpuscular Volume 83 fl (79-97); Monocytes # (Auto) 0.4 K/mm3 (0.0-0.8); Monocytes % (Auto) 6.4 % (0.0-7.3); Platelet Count 100 K/mm3 (140-440); Red Blood Count 4.18 M/mm3 (3.65-5.03); Red Cell Distribution Width 17.3 % (13.2-15.2)
[2017-10-05 15:48] LABS: BUN/Creatinine Ratio 12; Blood Urea Nitrogen 7 mg/dL (7-17); Calcium 9.1 mg/dL (8.4-10.2); Hemolysis Index 1
--- NOTE | 2017-10-05 19:03 | Emergency Department Report ---
ED Chest Pain HPI - General Chief Complaint: Chest Pain Stated Complaint: CHEST PAIN Time Seen by Provider: 10/05/17 18:46 Source: patient Mode of arrival: Ambulatory Limitations: No Limitations - History of Present Illness MD Complaint: chest pain (Sudden onset chest pain started today in the morning, midsternal, radiates to right arm, was 10/10 but now 3/10 after she had soda and burped. She had hot wings multiple times overnight last night. She has h/o GERD but she wanted to make sure it is not her heart.) -: Sudden - Related Data Previous Rx's Medication Instructions Recorded Last Taken Type Cyclobenzaprine [Flexeril] 10 mg PO TID PRN #12 tablet 10/28/16 Unknown Rx Ibuprofen [Motrin 600 MG tab] 600 mg PO Q8H PRN #30 tablet 01/26/17 Unknown Rx Lisinopril [Zestril TAB] 25 mg PO QDAY #15 tab 01/26/17 Unknown Rx predniSONE [Deltasone] 50 mg PO QDAY #5 tab 06/13/17 Unknown Rx Acetaminophen [Tylenol Arthritis] 650 mg PO Q6HR PRN #30 tablet.er 07/20/17 Unknown Rx Ibuprofen [Motrin] 600 mg PO Q8H PRN #30 tablet 07/20/17 Unknown Rx Allergies Allergy/AdvReac Type Severity Reaction Status Date / Time No Known Allergies Allergy Verified 04/11/17 15:42 Heart Score - HEART Score History: Slightly suspicious EKG: Non-specific Age: < 45 Risk factors: 1-2 risk factors Troponin: < normal limit HEART Score: 2 ED Review of Systems ROS: Stated complaint: CHEST PAIN Other details as noted in HPI Constitutional: denies: chills, fever Eyes: denies: eye pain, eye discharge, vision change ENT: denies: ear pain, throat pain Respiratory: denies: cough, shortness of breath, wheezing Cardiovascular: as per HPI, chest pain. 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, Scoliosis - Social History Smoking Status: Never Smoker Substance Use Type: None - Medications Home Medications: Home Medications Medication Instructions Recorded Confirmed Last Taken Type Cyclobenzaprine [Flexeril] 10 mg PO TID PRN #12 tablet 10/28/16 Unknown Rx Ibuprofen [Motrin 600 MG tab] 600 mg PO Q8H PRN #30 tablet 01/26/17 Unknown Rx Lisinopril [Zestril TAB] 25 mg PO QDAY #15 tab 01/26/17 Unknown Rx predniSONE [Deltasone] 50 mg PO QDAY #5 tab 06/13/17 Unknown Rx Acetaminophen [Tylenol Arthritis] 650 mg PO Q6HR PRN #30 tablet.er 07/20/17 Unknown Rx Ibuprofen [Motrin] 600 mg PO Q8H PRN #30 tablet 07/20/17 Unknown Rx ED Physical Exam - General Limitations: No Limitations General appearance: alert, in no apparent distress - Head Head exam: Present: atraumatic, normocephalic - Eye Eye exam: Present: normal appearance - ENT ENT exam: Present: mucous membranes moist - Neck Neck exam: Present: normal inspection - Respiratory Respiratory exam: Present: normal lung sounds bilaterally. Absent: respiratory distress - Cardiovascular Cardiovascular Exam: Present: regular rate, normal rhythm. Absent: systolic murmur, diastolic murmur, rubs, gallop - GI/Abdominal GI/Abdominal exam: Present: soft, normal bowel sounds - Extremities Exam Extremities exam: Present: normal inspection - Back Exam Back exam: Present: normal inspection - Neurological Exam Neurological exam: Present: alert, oriented X3 - Psychiatric Psychiatric exam: Present: normal affect, normal mood - Skin Skin exam: Present: warm, dry, intact, normal color. Absent: rash ED Course Vital Signs 10/05/17 15:02 Temperature 98.7 F Pulse Rate 91 H Respiratory 22 Rate Blood Pressure 165/98 O2 Sat by Pulse 100 Oximetry KATALINA score - Katalina Score Age > 65: (0) No Aspirin use within the Past 7 Days: (0) No 3 or more CAD Risk Factors: (0) No 2 or more Angina events in past 24 hrs: (0) No Known CAD with more than 50% Stenosis: (0) No Elevated Cardiac Markers: (0) No ST Deviation Greater than 0.5mm: (0) No KATALINA Score: 0 ED Medical Decision Making - Lab Data Result diagrams: 10/05/17 15:16 10/05/17 15:14 Critical care attestation.: If time is entered above; I have spent that time in minutes in the direct care of this critically ill patient, excluding procedure time. ED Disposition Clinical Impression: Atypical chest pain GERD (gastroesophageal reflux disease) Qualifiers: Esophagitis presence: esophagitis presence not specified Qualified Code(s): K21.9 - Gastro-esophageal reflux disease without esophagitis Disposition: DC-01 TO HOME OR SELFCARE Is pt being admited?: No Does the pt Need Aspirin: No Condition: Good Instructions: Chest Pain (ED), Gastroesophageal Reflux Disease (ED) Referrals: PRIMARY CARE, [Primary Care Provider] - 3-5 Days Time of Disposition: 19:05
[2017-10-05 19:12] VITALS: BP 154/100
== END 2017-10-05 19:31 | disposition home or self-care (01) ==
LOC: ED 14:43
DX: K21.9 Gastro-esophageal reflux disease without esophagitis (principal); I10 Essential (primary) hypertension; G43.909 Migraine, unspecified, not intractable, without status migrainosus; F41.9 Anxiety disorder, unspecified
CPT/HCPCS: 36415; 80048; 84484; 85025; 93005; 93010

== ENCOUNTER 2018-02-16 16:47 | Emergency (ER) | payer SELFPAY ==
[2018-02-16 17:07] VITALS: BP 146/91
--- NOTE | 2018-02-16 20:32 | Emergency Department Report ---
- General Chief Complaint: Upper Respiratory Infection Stated Complaint: SINUS INFECTION Time Seen by Provider: 02/16/18 19:26 Source: patient Mode of arrival: Ambulatory Limitations: No Limitations - History of Present Illness Initial Comments: This is a 37-year-old female nontoxic, well nourished in appearance, no acute signs of distress presents to the ED with c/o of frontal sinus pain, rhinorrhea , nasal congestion x4 days. Patient denies any cough. Patient denies any sick contact. Patient denies any recent travels, long car, recent hospital stays. Patient denies any calf pain or calf tenderness. Patient denies any chest pain , short of breath, fever, chills, nausea, vomiting, hemoptysis, numbness, tingling, headache or stiff neck. Patient denies any allergies or PMH. MD Complaint: rhinorrhea, nasal congestion, sinus pain -: days(s) (4) Severity: mild Severity scale (0 -10): 8 Quality: aching Consistency: constant Improves With: nothing Worsens With: nothing Associated Symptoms: rhinorrhea, nasal congestion, other (frontal sinus pain). denies: fever, chills, myalgias, diaphoresis, headache, sore throat, stiff neck , cough, chest pain, shortness of breath, abdominal pain, nausea, vomiting, diarrhea, dysuria, rash, confusion, right sweats, weight loss, epistaxis, hoarseness, ear pain - Related Data Previous Rx's Medication Instructions Recorded Last Taken Type Cyclobenzaprine [Flexeril] 10 mg PO TID PRN #12 tablet 10/28/16 Unknown Rx Ibuprofen [Motrin 600 MG tab] 600 mg PO Q8H PRN #30 tablet 01/26/17 Unknown Rx Lisinopril [Zestril TAB] 25 mg PO QDAY #15 tab 01/26/17 Unknown Rx predniSONE [Deltasone] 50 mg PO QDAY #5 tab 06/13/17 Unknown Rx Acetaminophen [Tylenol Arthritis] 650 mg PO Q6HR PRN #30 tablet.er 07/20/17 Unknown Rx Ibuprofen [Motrin] 600 mg PO Q8H PRN #30 tablet 07/20/17 Unknown Rx Amoxicillin/K Clav Tab [Augmentin 1 tab PO Q12HR #20 tab 02/16/18 Unknown Rx 875 mg] Fluticasone [Flonase] 1 spray NS QDAY #1 bottle 02/16/18 Unknown Rx Ibuprofen [Motrin] 600 mg PO Q8H PRN #30 tablet 02/16/18 Unknown Rx Loratadine [Claritin] 10 mg PO DAILY #30 tablet 02/16/18 Unknown Rx Allergies Allergy/AdvReac Type Severity Reaction Status Date / Time No Known Allergies Allergy Verified 04/11/17 15:42 ED Review of Systems ROS: Stated complaint: SINUS INFECTION Other details as noted in HPI Constitutional: denies: chills, fever Eyes: denies: eye pain, eye discharge, vision change ENT: denies: ear pain, throat pain Respiratory: denies: cough, shortness of breath, wheezing Cardiovascular: denies: chest pain, palpitations Endocrine: no symptoms reported Gastrointestinal: denies: abdominal pain, nausea, diarrhea Genitourinary: denies: urgency, dysuria, discharge Musculoskeletal: denies: back pain, joint swelling, arthralgia Skin: denies: rash, lesions Neurological: denies: headache, weakness, paresthesias Psychiatric: denies: anxiety, depression Hematological/Lymphatic: denies: easy bleeding, easy bruising ED Past Medical Hx - Past Medical History Hx Hypertension: Yes Hx Headaches / Migraines: Yes Additional medical history: anxiety, skin rash, 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, Scoliosis - Social History Smoking Status: Never Smoker Substance Use Type: None - Medications Home Medications: Home Medications Medication Instructions Recorded Confirmed Last Taken Type Cyclobenzaprine [Flexeril] 10 mg PO TID PRN #12 tablet 10/28/16 Unknown Rx Ibuprofen [Motrin 600 MG tab] 600 mg PO Q8H PRN #30 tablet 01/26/17 Unknown Rx Lisinopril [Zestril TAB] 25 mg PO QDAY #15 tab 01/26/17 Unknown Rx predniSONE [Deltasone] 50 mg PO QDAY #5 tab 06/13/17 Unknown Rx Acetaminophen [Tylenol Arthritis] 650 mg PO Q6HR PRN #30 tablet.er 07/20/17 Unknown Rx Ibuprofen [Motrin] 600 mg PO Q8H PRN #30 tablet 07/20/17 Unknown Rx Amoxicillin/K Clav Tab [Augmentin 1 tab PO Q12HR #20 tab 02/16/18 Unknown Rx 875 mg] Fluticasone [Flonase] 1 spray NS QDAY #1 bottle 02/16/18 Unknown Rx Ibuprofen [Motrin] 600 mg PO Q8H PRN #30 tablet 02/16/18 Unknown Rx Loratadine [Claritin] 10 mg PO DAILY #30 tablet 02/16/18 Unknown Rx ED Physical Exam - General Limitations: No Limitations General appearance: alert, in no apparent distress - Head Head exam: Present: atraumatic, normocephalic - Eye Eye exam: Present: normal appearance Pupils: Present: normal accommodation - ENT ENT exam: Present: normal exam, mucous membranes moist - Neck Neck exam: Present: normal inspection, full ROM. Absent: tenderness, meningismus, lymphadenopathy - Respiratory Respiratory exam: Present: normal lung sounds bilaterally. Absent: respiratory distress, wheezes, rales, rhonchi, stridor, chest wall tenderness, accessory muscle use, decreased breath sounds, prolonged expiratory - Cardiovascular Cardiovascular Exam: Present: regular rate, normal rhythm, normal heart sounds. Absent: bradycardia, tachycardia, irregular rhythm, systolic murmur, diastolic murmur, rubs, gallop - GI/Abdominal GI/Abdominal exam: Present: soft, normal bowel sounds. Absent: distended, tenderness, guarding, rebound, rigid, diminished bowel sounds - Rectal Rectal exam: Present: deferred - Extremities Exam Extremities exam: Present: normal inspection, full ROM, normal capillary refill - Back Exam Back exam: Present: normal inspection, full ROM - Neurological Exam Neurological exam: Present: alert, oriented X3, normal gait - Psychiatric Psychiatric exam: Present: normal affect, normal mood - Skin Skin exam: Present: warm, dry, intact, normal color. Absent: rash - Other Other exam information: Frontal sinus tenderness ED Course Vital Signs 02/16/18 17:04 Temperature 99.6 F Pulse Rate 83 Respiratory 18 Rate Blood Pressure 146/91 O2 Sat by Pulse 100 Oximetry - Reevaluation(s) Reevaluation #1: 02/16/18 20:32 Patient is speaking in full sentences with no signs of distress noted. ED Medical Decision Making - Medical Decision Making This is a 37-year-old female that presents with sinusitis. Patient is stable and was examined by me. Chest x-ray has been obtained and dictated by radiologist with normal exam. Patient is notified of x-ray results with no questions noted. Patient was instructed to increase hydration, rest and take Motrin for fever episodes. Vitals stable. Patient is nonfebrile and normal heart rate. Patient was instructed Follow-up with a primary care doctor in 3-5 days or if symptoms worsen and continue return to emergency room as soon as possible. At time time of discharge, the patient does not seem toxic or ill in appearance. No acute signs of distress noted. Patient agrees to discharge treatment plan of care. No further questions noted by the patient. Critical care attestation.: If time is entered above; I have spent that time in minutes in the direct care of this critically ill patient, excluding procedure time. ED Disposition Clinical Impression: Sinusitis Qualifiers: Sinusitis location: frontal Chronicity: acute Recurrence: non-recurrent Qualified Code(s): J01.10 - Acute frontal sinusitis, unspecified Disposition: - TO HOME OR SELFCARE Is pt being admited?: No Does the pt Need Aspirin: No Condition: Stable Instructions: Sinusitis (ED) Additional Instructions: Follow-up with a primary care doctor in 3-5 days or if symptoms worsen and continue return to emergency room as soon as possible. Prescriptions: Amoxicillin/K Clav Tab [Augmentin 875 mg] 1 tab PO Q12HR #20 tab Fluticasone [Flonase] 1 spray NS QDAY #1 bottle Ibuprofen [Motrin] 600 mg PO Q8H PRN #30 tablet PRN Reason: Pain Loratadine [Claritin] 10 mg PO DAILY #30 tablet Referrals: PRIMARY CAREMD [Referring] - 3-5 Days MI HUTCHINSON MD [Staff Physician] - 3-5 Days [facility] [Outside] - 3-5 Days Forms: Work/School Release Form(ED)
== END 2018-02-16 20:40 | disposition home or self-care (01) ==
LOC: ED 16:47
DX: J01.10 Acute frontal sinusitis, unspecified (principal); I10 Essential (primary) hypertension; G43.909 Migraine, unspecified, not intractable, without status migrainosus
CPT/HCPCS: 99282

== ENCOUNTER 2018-07-08 13:15 | Emergency (ER) | payer MEDICAID ==
[2018-07-08 13:30] VITALS: BP 177/111
--- NOTE | 2018-07-08 13:37 | Emergency Department Report ---
ED Lower Extremity HPI - General Chief Complaint: Extremity Injury, Lower Stated Complaint: RT SIDE SWELLING/RT KNEE PAIN Time Seen by Provider: 07/08/18 13:32 Source: patient Mode of arrival: Ambulatory Limitations: No Limitations - History of Present Illness MD Complaint: knee injury -: month(s) Injury: Knee: Right Place: home Severity: moderate Improves With: nothing Worsens With: nothing - Related Data Previous Rx's Medication Instructions Recorded Last Taken Type RX: Lisinopril [Zestril TAB] 25 mg PO QDAY #15 tab 01/26/17 Unknown Rx methylPREDNISolone [Medrol] 4 mg PO DAILY #1 tab.ds.pk 07/08/18 Unknown Rx Allergies Allergy/AdvReac Type Severity Reaction Status Date / Time No Known Allergies Allergy Verified 04/11/17 15:42 ED Review of Systems ROS: Stated complaint: RT SIDE SWELLING/RT KNEE PAIN Other details as noted in HPI Comment: All other systems reviewed and negative Constitutional: denies: chills Eyes: denies: eye pain ENT: denies: throat pain Respiratory: denies: cough Cardiovascular: denies: dyspnea on exertion Endocrine: denies: flushing Gastrointestinal: denies: vomiting Genitourinary: denies: as per HPI, urgency Musculoskeletal: as per HPI, other (R KNEE PAIN) Skin: denies: lesions Neurological: denies: headache Psychiatric: denies: depression Hematological/Lymphatic: denies: easy bleeding ED Past Medical Hx - Past Medical History Hx Hypertension: Yes Hx Headaches / Migraines: Yes Additional medical history: anxiety, skin rash, 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, Scoliosis - Family History Family history: no significant - Social History Smoking Status: Never Smoker Substance Use Type: None - Medications Home Medications: Home Medications Medication Instructions Recorded Confirmed Last Taken Type RX: Lisinopril [Zestril TAB] 25 mg PO QDAY #15 tab 01/26/17 Unknown Rx methylPREDNISolone [Medrol] 4 mg PO DAILY #1 tab.ds.pk 07/08/18 Unknown Rx ED Physical Exam - General Limitations: No Limitations General appearance: alert - Head Head exam: Present: atraumatic - Eye Eye exam: Present: normal appearance, PERRL, EOMI Pupils: Present: normal accommodation - ENT ENT exam: Present: normal exam, mucous membranes moist - Neck Neck exam: Present: normal inspection - Respiratory Respiratory exam: Present: normal lung sounds bilaterally - Cardiovascular Cardiovascular Exam: Present: regular rate - GI/Abdominal GI/Abdominal exam: Present: soft, normal bowel sounds - Rectal Rectal exam: Present: deferred - Extremities Exam Extremities exam: Present: normal inspection, full ROM - Expanded Lower Extremity Exam Right Upper Leg exam: Present: normal inspection Knee exam: Present: normal inspection, full ROM, swelling (V OBESE. LOOKS SAME LEFT BUT PT STATES LARGER). Absent: tenderness, abrasion, laceration, ecchymosis, deformity, crepidus Lower Leg exam: Present: normal inspection Ankle exam: Present: normal inspection Foot/Toe exam: Present: normal inspection Neuro vascular tendon exam: Present: no vascular compromise Gait: Positive: observed and normal - Back Exam Back exam: Present: normal inspection, full ROM. Absent: CVA tenderness (R), CVA tenderness (L) - Neurological Exam Neurological exam: Present: alert, oriented X3 - Psychiatric Psychiatric exam: Present: normal affect, normal mood ED Course Vital Signs 07/08/18 07/08/18 13:21 14:47 Temperature 98.7 F Pulse Rate 93 H Respiratory 20 18 Rate Blood Pressure 177/111 O2 Sat by Pulse 99 Oximetry ED Lower Extremity MDM - Radiology Data Radiology results: report reviewed, image reviewed - Medical Decision Making X RAY NEG EFFUSION OR FX MEDICATED FOR PAIN THIS IS A CHRONIC ISSUE REFERRED TO ORTHO BP NOTED INC PT STATES NOT TAKING MEDS BUT I THINK SHE IS SUPPOSE TO BE PER EMR NEURO INTACT NO SOB NO CP NO PEDAL EDEMA NO FOCAL NEURO DEF Vital Signs 07/08/18 07/08/18 13:21 14:47 Temperature 98.7 F Pulse Rate 93 H Respiratory 20 18 Rate Blood Pressure 177/111 O2 Sat by Pulse 99 Oximetry BP TRENDING DOWN ON DC DISCUSSED WITH PT. SHE WILL FOLLOW UP OUTPATIENT. - Differential Diagnosis RO FX/EFFUSION Critical care attestation.: If time is entered above; I have spent that time in minutes in the direct care of this critically ill patient, excluding procedure time. ED Disposition Clinical Impression: Knee pain, Elevated blood pressure reading Disposition: -01 TO HOME OR SELFCARE Is pt being admited?: No Does the pt Need Aspirin: No Condition: Stable Instructions: Arthralgia (ED) Additional Instructions: JAMMIE FOR COMFORT AND STABILITY MEDS ORDERED TODAY ICE/REST/ELEVATE MUCH YOU CAN MOTRIN IS GOOD FOR INFLAMMATION FOLLOW UP WITH ORTHO REFERRAL BELOW XRAY NEGATIVE TODAY MONITOR YOUR BLOOD PRESSURE IT WAS HIGH TODAY FOLLOW UP WITH PCP TO BE SURE THIS TRENDS DOWN WEIGHT LOSS WITH HELP THIS AND YOU KNEE DRINK 2GALLONS OF WATER A DAY Prescriptions: methylPREDNISolone [Medrol] 4 mg PO DAILY #1 tab.ds.pk Referrals: HANY RYAN MD [Primary Care Provider] - 3-5 Days BEATRICE DON MD [Staff Physician] - 3-5 Days Forms: Work/School Release Form(ED) Time of Disposition: 14:48
[2018-07-08] MEDS ORDERED: NORCO 5/325 PO ONE (13:44)
[2018-07-08 13:56] LABS: HCG Qualitative,Urine Negative (Negative)
[2018-07-08] MEDS ORDERED: DECADRON IM ONE (14:15)
--- NOTE | 2018-07-08 14:42 | XRay Report ---
RIGHT KNEE RADIOGRAPHS INDICATION: Pain. COMPARISON: None similar. FINDINGS: AP, lateral and oblique right knee radiographs demonstrate intact bony articulation and appearance. Normal soft tissues without evidence of suprapatellar effusion. CONCLUSION: Normal right knee radiographs. Thank you for the opportunity to participate in this patient's care.
== END 2018-07-08 15:49 | disposition home or self-care (01) ==
LOC: ED 13:15
DX: M25.561 Pain in right knee (principal); R03.0 Elevated blood-pressure reading, without diagnosis of hypertension; G43.909 Migraine, unspecified, not intractable, without status migrainosus; F41.9 Anxiety disorder, unspecified; Z79.899 Other long term (current) drug therapy
CPT/HCPCS: 73562; 81025; 96372; 99284; J1100

== ENCOUNTER 2018-07-10 05:57 | Emergency (ER) | payer MEDICAID ==
[2018-07-10] MEDS ORDERED: IBUPROFEN PO ONE (06:23)
[2018-07-10] MEDS ORDERED: ZOFRAN ODT PO ONE (06:23)
[2018-07-10] MEDS ORDERED: NACL 0.9% 1000 ML 1,000 ML IV ONE (07:37)
--- NOTE | 2018-07-10 07:39 | Emergency Department Report ---
HPI - General Chief Complaint: Upper Respiratory Infection Time Seen by Provider: 07/10/18 07:21 - HPI HPI: This is a 38-year-old female with a history of blood pressure controlled who presents to ED complaining of fever and chills with nausea and vomiting for the past 2 days. Patient said the symptoms started yesterday when she felt chills and feverish. Patient states that this morning she started having vomiting episodes. Patient denies cough, chest pain, shortness of breath, runny nose, abdominal pain. 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, Scol iosis - Surgical History Past Surgical History?: No - Social History Smoking Status: Never Smoker Substance Use Type: None - Medications Home Medications: Home Medications Medication Instructions Recorded Confirmed Last Taken Type Lisinopril [Zestril TAB] 25 mg PO QDAY #15 tab 01/26/17 Unknown Rx methylPREDNISolone [Medrol] 4 mg PO DAILY #1 tab.ds.pk 07/08/18 Unknown Rx Nitrofurantoin [place]/M-Cryst 100 mg PO Q12HR #10 capsule 07/10/18 Unknown Rx [Macrobid CAP] Ondansetron [Zofran ODT TAB] 8 mg PO Q12HR #20 tab.rapdis 07/10/18 Unknown Rx ED Review of Systems ROS: Stated complaint: NV W FLU LIKE SX Other details as noted in HPI Comment: All other systems reviewed and negative Physical Exam - Physical Exam Vital Signs: Vital Signs 07/10/18 06:18 Temperature 102.9 F H Pulse Rate 134 H Respiratory 20 Rate Blood Pressure 113/75 O2 Sat by Pulse 97 Oximetry Physical Exam: GENERAL: Alert and oriented x3, no apparent distress, Normal Gait, atraumatic. HEAD: Head is normocephalic and a-traumatic. LUNGS: Symetrical with respiration, No wheezing, no rales or crackles, CTAB. HEART: S1, S2 present, regular rate and rhythm without murmur, no rubs, no gallops. Non tender to palpation ABDOMEN: No organomegaly was noted,Positive bowel sounds, soft, and non- distended. . Nontender to palpation on all Quadrants, BACK: Full range of motion, no spinal tenderness, CVA tenderness bilaterally, nontender to palpation. SKIN: Warm and dry, No lesions, No ulceration or induration present. ED Course Vital Signs 07/10/18 06:18 Temperature 102.9 F H Pulse Rate 134 H Respiratory 20 Rate Blood Pressure 113/75 O2 Sat by Pulse 97 Oximetry ED Medical Decision Making - Lab Data Result diagrams: 07/10/18 07:53 07/10/18 07:50 - Medical Decision Making 38-year-old female presents tract infection/acute pyelo CBC shows no elevated white count, urinalysis positive for white count, nitrite, leukocyte esterase. Patient received 1 L normal saline, Rocephin ED should go home on Macrobid and Zofran. Discussed follow-up with primary care physician and continue Motrin as needed for pain and reducing fever. Fever was reduced prior to ED discharge. Patient feels much better Vital are normal she is in no acute distress Critical care attestation.: If time is entered above; I have spent that time in minutes in the direct care of this critically ill patient, excluding procedure time. ED Disposition Clinical Impression: UTI (urinary tract infection) Disposition: -01 TO HOME OR SELFCARE Is pt being admited?: No Does the pt Need Aspirin: No Condition: Stable Instructions: Urinary Tract Infection in Women (ED), Acute Pyelonephritis (ED) Additional Instructions: Make sure to follow up with the primary care physician as discussed. Take all your medications as you've been prescribed. If you have any worsening symptoms or develop new symptoms please return to ED immediately. Prescriptions: Nitrofurantoin [place]/M-Cryst [Macrobid CAP] 100 mg PO Q12HR #10 capsule Ondansetron [Zofran ODT TAB] 8 mg PO Q12HR #20 tab.ini Referrals: PRIMARY MD MARIELOS [Primary Care Provider] - 3-5 Days KAYY GARCÍA MD [Referring] - 3-5 Days [facility] [Outside] - 3-5 Days [facility] [Outside] - 3-5 Days Forms: Work/School Release Form(ED) Time of Disposition: 09:56
[2018-07-10 07:58] LABS: Basophils % (Auto) 0.4 % (0.0-1.8); Eosinophils % (Auto) 0.1 % (0.0-4.3); Hematocrit 34.3 % (30.3-42.9); Hemoglobin 11.3 gm/dl (10.1-14.3); Lymphocytes # (Auto) 0.4 K/mm3 (1.2-5.4); Lymphocytes % (Auto) 5.9 % (13.4-35.0); Mean Corpuscular HGB Conc 33 % (30-34); Mean Corpuscular Volume 87 fl (79-97); Monocytes # (Auto) 0.3 K/mm3 (0.0-0.8); Monocytes % (Auto) 4.8 % (0.0-7.3); Red Blood Count 3.96 M/mm3 (3.65-5.03); Red Cell Distribution Width 15.4 % (13.2-15.2)
[2018-07-10 08:01] LABS: Platelet Count 64 K/mm3 (140-440)
[2018-07-10 08:10] LABS: BUN/Creatinine Ratio 11; Blood Urea Nitrogen 8 mg/dL (7-17); Calcium 8.6 mg/dL (8.4-10.2); Hemolysis Index 3
[2018-07-10 08:50] LABS: Bacteria,Urine 4+ /HPF (Negative); Bilirubin,Urine NEG (Negative); Blood,Urine SM (Negative); Color,Urine Amber (Yellow); Mucus,Urine 3+ /HPF; Urobilinogen,Urine < 2.0 mg/dL (<2.0)
[2018-07-10 08:57] LABS: HCG Qualitative,Urine Negative (Negative)
--- NOTE | 2018-07-10 09:23 | XRay Report ---
ROUTINE CHEST, TWO VIEWS: HISTORY: Fever. The trachea, heart, mediastinal contour, lung hameed and bony thorax are unremarkable. IMPRESSION: Unremarkable chest x-ray.
[2018-07-10] MEDS ORDERED: ROCEPHIN 250 MG in NACL 0.9% 50 ML IV ONE (09:52)
[2018-07-10 10:26] VITALS: BP 100/62
== END 2018-07-10 11:20 | disposition home or self-care (01) ==
LOC: ED 05:57
DX: N39.0 Urinary tract infection, site not specified (principal); R50.9 Fever, unspecified; I10 Essential (primary) hypertension; G43.909 Migraine, unspecified, not intractable, without status migrainosus; F41.9 Anxiety disorder, unspecified
CPT/HCPCS: 36415; 71046; 80048; 81001; 81025; 85025; 96361; 96374; 99284; J0696; J7030; Q0162

== ENCOUNTER 2018-08-12 17:34 | Emergency (ER) | payer MEDICAID ==
[2018-08-12 20:27] VITALS: BP 143/96
[2018-08-12] MEDS ORDERED: DECADRON IM ONE (20:49)
[2018-08-12] MEDS ORDERED: TORADOL IM ONE (20:49)
--- NOTE | 2018-08-12 21:11 | Emergency Department Report ---
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 intermittent for the past 6 months patient states hyperextension 6 months ago than having intermittent pain since has had several evaluations for knee pain including Ortho consult with no acute findings patient states pain this week for the past 3 days exacerbated by prolonged standing and walking completing work duties pain is relieved temporarily by rest patient has been taking [id number] ibuprofen and Tylenol states intermittent swelling is no numbness no tingling Patient does remain ambulatory at baseline per patient there has been no new fall injury or trauma MD Complaint: knee injury Onset/Timin -: days(s), unknown (acute on chronic knee pain ) Injury: Knee: Right Type of Injury: hyperextension (her) Place: home Severity: moderate Severity scale (0 -10): 5 Improves With: rest Worsens With: weight bearing, movement, palpation Associated Symptoms: swelling, ambulatory. denies: snap/pop sensation, numb ness, tingling Treatments Prior to Arrival: cold therapy, NSAIDS - Related Data Previous Rx's Medication Instructions Recorded Last Taken Type Lisinopril [Zestril TAB] 25 mg PO QDAY #15 tab 01/26/17 Unknown Rx methylPREDNISolone [Medrol] 4 mg PO DAILY #1 tab.ds.pk 07/08/18 Unknown Rx Nitrofurantoin [place]/M-Cryst 100 mg PO Q12HR #10 capsule 07/10/18 Unknown Rx [Macrobid CAP] Ondansetron [Zofran ODT TAB] 8 mg PO Q12HR #20 tab.rapdis 07/10/18 Unknown Rx Cyclobenzaprine [Flexeril] 10 mg PO TID PRN #30 tablet 08/12/18 Unknown Rx Menthol/Camphor [[place] 1 applicatio TP QID PRN #1 tube 08/12/18 Unknown Rx Ointment] Naproxen 500 mg PO BID PRN #30 tablet 08/12/18 Unknown Rx Allergies Allergy/AdvReac Type Severity Reaction Status Date / Time No Known Allergies Allergy Verified 04/11/17 15:42 ED Review of Systems ROS: Stated complaint: (R) KNEE PAIN Other details as noted in HPI Constitutional: denies: chills, fever Eyes: denies: eye pain, eye discharge, vision change ENT: denies: ear pain, throat pain Respiratory: denies: cough, shortness of breath, wheezing Cardiovascular: denies: chest pain, palpitations Endocrine: no symptoms reported Gastrointestinal: denies: abdominal pain, nausea, diarrhea Genitourinary: denies: urgency, dysuria, discharge Musculoskeletal: joint swelling, arthralgia Skin: denies: rash, lesions Neurological: denies: headache, weakness, paresthesias Psychiatric: denies: anxiety, depression Hematological/Lymphatic: denies: easy bleeding, easy bruising 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, Scoliosis - Surgical History Past Surgical History?: No - Social History Smoking Status: Never Smoker Substance Use Type: None - Medications Home Medications: Home Medications Medication Instructions Recorded Confirmed Last Taken Type Lisinopril [Zestril TAB] 25 mg PO QDAY #15 tab 01/26/17 Unknown Rx methylPREDNISolone [Medrol] 4 mg PO DAILY #1 tab.ds.pk 07/08/18 Unknown Rx Nitrofurantoin [place]/M-Cryst 100 mg PO Q12HR #10 capsule 07/10/18 Unknown Rx [Macrobid CAP] Ondansetron [Zofran ODT TAB] 8 mg PO Q12HR #20 tab.rapdis 07/10/18 Unknown Rx Cyclobenzaprine [Flexeril] 10 mg PO TID PRN #30 tablet 08/12/18 Unknown Rx Menthol/Camphor [[place] 1 applicatio TP QID PRN #1 tube 08/12/18 Unknown Rx Ointment] Naproxen 500 mg PO BID PRN #30 tablet 08/12/18 Unknown Rx ED Physical Exam - General Limitations: No Limitations General appearance: alert, in no apparent distress - Head Head exam: Present: atraumatic, normocephalic - Eye Eye exam: Present: normal appearance, PERRL, EOMI Pupils: Present: normal accommodation - ENT ENT exam: Present: normal exam, mucous membranes moist - Neck Neck exam: Present: normal inspection, full ROM. Absent: tenderness - Respiratory Respiratory exam: Present: normal lung sounds bilaterally. Absent: respiratory distress, wheezes, stridor, chest wall tenderness - Cardiovascular Cardiovascular Exam: Present: regular rate, normal rhythm, normal heart sounds. Absent: systolic murmur, diastolic murmur, rubs, gallop - GI/Abdominal GI/Abdominal exam: Present: soft, normal bowel sounds - Rectal Rectal exam: Present: deferred - Extremities Exam Extremities exam: Present: full ROM, tenderness (suprapatella tenderness no ecchymosis no catch no drawer ), joint swelling - Expanded Lower Extremity Exam Right Knee exam: Present: full ROM, tenderness, swelling, pain w/ pronation/supination, full knee extension. Absent: abrasion, laceration, ecchymosis, deformity, crepidus, dislocation, erythema, effusion, posterior draw sign, pain/laxity with valgus, pain/laxity with varus Lower Leg exam: Present: normal inspection, full ROM. Absent: tenderness Ankle exam: Present: normal inspection, full ROM. Absent: tenderness Foot/Toe exam: Present: normal inspection, full ROM. Absent: tenderness Neuro vascular tendon exam: Present: no vascular compromise. Absent: motor deficit, sensory deficit, tendon deficit Gait: Positive: observed and normal - Back Exam Back exam: Present: normal inspection, full ROM. Absent: tenderness, CVA tenderness (R), CVA tenderness (L), muscle spasm, paraspinal tenderness, vertebral tenderness, rash noted - Neurological Exam Neurological exam: Present: alert, oriented X3, CN II-XII intact, normal gait, reflexes normal. Absent: motor sensory deficit - Psychiatric Psychiatric exam: Present: normal affect, normal mood - Skin Skin exam: Present: warm, dry, intact, normal color. Absent: rash ED Course Vital Signs 08/12/18 20:21 Temperature 97.7 F Pulse Rate 84 Respiratory 16 Rate Blood Pressure 143/96 O2 Sat by Pulse 99 Oximetry ED Lower Extremity MDM - Medical Decision Making this acute on chronic knee pain plan: nsaids muscle relaxants analgesic balm follow up with ortho as scheduled knee exercises pt verbalized agreement and understanding of discharge plan. Critical care attestation.: If time is entered above; I have spent that time in minutes in the direct care of this critically ill patient, excluding procedure time. ED Disposition Clinical Impression: Chronic pain of right knee Knee pain Qualifiers: Chronicity: unspecified Laterality: right Qualified Code(s): M25.561 - Pain in right knee Disposition: DC- TO HOME OR SELFCARE Is pt being admited?: No Does the pt Need Aspirin: No Condition: Stable Instructions: Arthralgia (ED), Knee Exercises (GEN) Prescriptions: Cyclobenzaprine [Flexeril] 10 mg PO TID PRN #30 tablet PRN Reason: Muscle Spasm Menthol/Camphor [[place] Ointment] 1 applicatio TP QID PRN #1 tube PRN Reason: pain Naproxen 500 mg PO BID PRN #30 tablet PRN Reason: pain Referrals: BENNETT OHARA [Primary Care Provider] - 3-5 Days BEATRICE DON MD [Staff Physician] - 3-5 Days Forms: Work/School Release Form(ED) Time of Disposition: 21:19
== END 2018-08-12 21:36 | disposition home or self-care (01) ==
LOC: ED 17:34
DX: M25.561 Pain in right knee (principal); G89.29 Other chronic pain; I10 Essential (primary) hypertension; G43.909 Migraine, unspecified, not intractable, without status migrainosus
CPT/HCPCS: 96372; 99281; J1100; J1885

== ENCOUNTER 2018-10-31 21:11 | Emergency (ER) | payer MEDICAID ==
[2018-10-31 21:29] VITALS: BP 158/86
--- NOTE | 2018-10-31 21:47 | Emergency Department Report ---
Blank Doc - Documentation Documentation: 38 y/o female started having SOB around 5pm and abd pain abdominal tightness, having nausea, Normal bowel movement. No dysuria. PMH HTN not taking any medications.
[2018-10-31 21:59] LABS: Eosinophils # (Auto) 0.1 K/mm3 (0.0-0.4); Eosinophils % (Auto) 1.4 % (0.0-4.3); Hematocrit 37.4 % (30.3-42.9); Hemoglobin 12.6 gm/dl (10.1-14.3); Lymphocytes # (Auto) 1.3 K/mm3 (1.2-5.4); Lymphocytes % (Auto) 28.4 % (13.4-35.0); Mean Corpuscular HGB Conc 34 % (30-34); Mean Corpuscular Volume 91 fl (79-97); Monocytes # (Auto) 0.5 K/mm3 (0.0-0.8); Monocytes % (Auto) 10.3 % (0.0-7.3); Platelet Count 117 K/mm3 (140-440); Red Blood Count 4.14 M/mm3 (3.65-5.03); Red Cell Distribution Width 13.6 % (13.2-15.2)
[2018-10-31 22:17] LABS: Alanine Aminotransferase 34 units/L (7-56); Albumin 4.5 g/dL (3.9-5); BUN/Creatinine Ratio 12; Blood Urea Nitrogen 11 mg/dL (7-17); Calcium 9.7 mg/dL (8.4-10.2); Hemolysis Index 9
--- NOTE | 2018-10-31 23:11 | XRay Report ---
PROCEDURE: XR CHEST ROUTINE 2V TECHNIQUE: PA and lateral views of the chest HISTORY: sob COMPARISONS: Chest x-ray dated July 10, 2018 FINDINGS: There is prominence of the interstitial markings in both lungs similar in appearance to the previous study. There is the appearance of a small area pulmonary consolidation in the right upper lung field. Atelec tasis versus infiltrate. This is new since the previous study. There is no evidence of pneumothorax or pleural fluid collection. The cardiomediastinal silhouette is normal in appearance. The bony structures are unremarkable. IMPRESSION: 1. Appearance of small area of pulmonary consolidation right upper lung field is new since the previo us study which may represent a focal infiltrate or atelectasis. 2. Prominence of the interstitial markings in both lungs similar in appearance to the previous study. If further imaging is required, CT may be helpful. This document is electronically signed by Luci West MD., Oct 31 2018 11:09:24 PM ET
[2018-11-01] MEDS ORDERED: LEVAQUIN PO ONE (01:17)
[2018-11-01] MEDS ORDERED: SOLU-Medrol IM ONE (01:17)
[2018-11-01] MEDS ORDERED: PROVENTIL IH ONE (01:17)
[2018-11-01] MEDS ORDERED: K-DUR PO ONE (01:18)
--- NOTE | 2018-11-01 02:25 | Emergency Department Report ---
ED General Adult HPI - General Chief complaint: Abdominal Pain Stated complaint: NIMA Time Seen by Provider: 11/01/18 01:05 Source: patient Mode of arrival: Ambulatory Limitations: No Limitations - History of Present Illness Initial comments: Patient is a pleasant 38-year-old Irish female with a history of hypertension who presents to the ED with a complaint of acute onset of persistent intermittent shortness of breath with mild dry cough for the last 8 hours. 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 Patient said that the symptoms have been worsening in the last 4 hours. Patient also complained of suprapubic pain with urinary frequency and urgency for the last 4 days. Patient denies chest pain, dizziness, fever, chills, nausea, vomiting, dysuria, vaginal bleeding, vaginal discharge, sore throat, nasal and sinus congestion, palpitations or headache. MD Complaint: shortness of breath, suprapubic pain -: Sudden, hour(s) (8), This evening Location: chest, abdomen Radiation: non-radiation Severity scale (0 -10): 4 Quality: dull Consistency: intermittent Improves with: none Worsens with: none Associated Symptoms: cough, shortness of breath. denies: confusion, chest pain, diaphoresis, fever/chills, headaches, loss of appetite, malaise, nausea/vomiting, rash, seizure, syncope, weakness Treatments Prior to Arrival: none - Related Data Previous Rx's Medication Instructions Recorded Last Taken Type Lisinopril [Zestril TAB] 25 mg PO QDAY #15 tab 01/26/17 Unknown Rx methylPREDNISolone [Medrol] 4 mg PO DAILY #1 tab.ds.pk 07/08/18 Unknown Rx Nitrofurantoin [place]/M-Cryst 100 mg PO Q12HR #10 capsule 07/10/18 Unknown Rx [Macrobid CAP] Ondansetron [Zofran ODT TAB] 8 mg PO Q12HR #20 tab.rapdis 07/10/18 Unknown Rx Cyclobenzaprine [Flexeril] 10 mg PO TID PRN #30 tablet 08/12/18 Unknown Rx Menthol/Camphor [[place] 1 applicatio TP QID PRN #1 tube 08/12/18 Unknown Rx Ointment] Naproxen 500 mg PO BID PRN #30 tablet 08/12/18 Unknown Rx ALBUTEROL Inhaler(NF) [VENTOLIN 1 puff IH Q4H PRN #1 inha 11/01/18 Unknown Rx Inhaler(NF)] Ibuprofen [Motrin] 600 mg PO Q8H PRN #20 tablet 11/01/18 Unknown Rx levoFLOXacin [Levaquin TAB] 500 mg PO QDAY #10 tablet 11/01/18 Unknown Rx methylPREDNISolone [Medrol Dose 4 mg PO DAILY #21 pack 11/01/18 Unknown Rx Ramakrishna] Allergies Allergy/AdvReac Type Severity Reaction Status Date / Time No Known Allergies Allergy Verified 11/01/18 01:36 ED Review of Systems ROS: Stated complaint: NIMA Other details as noted in HPI Comment: All other systems reviewed and negative Constitutional: no symptoms reported, see HPI. denies: chills, fever, malaise, weakness Eyes: as per HPI. denies: eye pain, eye discharge, vision change ENT: as per HPI. denies: ear pain, throat pain, dental pain, hearing loss Respiratory: see HPI, cough, shortness of breath. denies: orthopnea, SOB with exertion, SOB at rest, wheezing Cardiovascular: as per HPI. denies: chest pain, palpitations, dyspnea on exertion, syncope, paroxysmal nocturnal dyspnea Endocrine: no symptoms reported, see HPI. denies: excessive sweating, flushing, intolerance to cold, increased hunger, increased thirst, increased urine, unexplained weight loss Gastrointestinal: as per HPI, abdominal pain (suprapubic pressure). denies: nausea, vomiting, diarrhea, constipation, melena, hematochezia Genitourinary: as per HPI, urgency, frequency. denies: dysuria, hematuria, discharge, abnormal menses, dyspareunia, other Musculoskeletal: as per HPI. denies: back pain, joint swelling, arthralgia, myalgia Skin: as per HPI. denies: rash, lesions, change in color, change in hair/nails Neurological: as per HPI. denies: headache, weakness, numbness, paresthesias, confusion, abnormal gait Psychiatric: as per HPI. denies: anxiety, depression, auditory hallucinations Hematological/Lymphatic: as per HPI ED Past Medical Hx - Past Medical History Previous Medical History?: Yes Hx Hypertension: Yes Hx Headaches / Migraines: Yes Additional medical history: anxiety, skin rash, Hx of stillborn 9-29-17, Scoliosis - Surgical History Past Surgical History?: No - Social History Smoking Status: Never Smoker Substance Use Type: Alcohol - Medications Home Medications: Home Medications Medication Instructions Recorded Confirmed Last Taken Type Lisinopril [Zestril TAB] 25 mg PO QDAY #15 tab 01/26/17 Unknown Rx methylPREDNISolone [Medrol] 4 mg PO DAILY #1 tab.ds.pk 07/08/18 Unknown Rx Nitrofurantoin [place]/M-Cryst 100 mg PO Q12HR #10 capsule 07/10/18 Unknown Rx [Macrobid CAP] Ondansetron [Zofran ODT TAB] 8 mg PO Q12HR #20 tab.rapdis 07/10/18 Unknown Rx Cyclobenzaprine [Flexeril] 10 mg PO TID PRN #30 tablet 08/12/18 Unknown Rx Menthol/Camphor [[place] 1 applicatio TP QID PRN #1 tube 08/12/18 Unknown Rx Ointment] Naproxen 500 mg PO BID PRN #30 tablet 08/12/18 Unknown Rx ALBUTEROL Inhaler(NF) [VENTOLIN 1 puff IH Q4H PRN #1 inha 11/01/18 Unknown Rx Inhaler(NF)] Ibuprofen [Motrin] 600 mg PO Q8H PRN #20 tablet 11/01/18 Unknown Rx levoFLOXacin [Levaquin TAB] 500 mg PO QDAY #10 tablet 11/01/18 Unknown Rx methylPREDNISolone [Medrol Dose 4 mg PO DAILY #21 pack 11/01/18 Unknown Rx Ramakrishna] ED Physical Exam - General Limitations: No Limitations General appearance: alert, in no apparent distress - Head Head exam: Present: atraumatic, normocephalic, normal inspection - Eye Eye exam: Present: normal appearance, PERRL, EOMI. Absent: scleral icterus, nystagmus, periorbital swelling, periorbital tenderness - ENT ENT exam: Present: normal exam, normal orophraynx, mucous membranes moist, TM's normal bilaterally, normal external ear exam - Neck Neck exam: Present: normal inspection, full ROM. Absent: tenderness, lymphadenopathy - Respiratory Respiratory exam: Present: normal lung sounds bilaterally. Absent: wheezes, rales, rhonchi, stridor, chest wall tenderness, accessory muscle use, decreased breath sounds, prolonged expiratory - Cardiovascular Cardiovascular Exam: Present: regular rate, normal rhythm, normal heart sounds - GI/Abdominal GI/Abdominal exam: Present: soft, normal bowel sounds. Absent: tenderness, rebound, rigid, hyperactive bowel sounds, organomegaly, mass, pulsatile mass - Rectal Rectal exam: Present: deferred - Extremities Exam Extremities exam: Present: normal inspection, full ROM, normal capillary refill - Back Exam Back exam: Present: normal inspection, full ROM. Absent: tenderness, CVA tenderness (R), CVA tenderness (L), muscle spasm, paraspinal tenderness, vertebral tenderness - Neurological Exam Neurological exam: Present: alert, oriented X3, CN II-XII intact, normal gait, reflexes normal - Psychiatric Psychiatric exam: Present: normal affect - Skin Skin exam: Present: warm, dry, intact, normal color ED Course Vital Signs 10/31/18 11/01/18 21:27 01:44 Temperature 97.9 F Pulse Rate 82 Pulse Rate [ 61 Anterior Bilateral] Respiratory 20 Rate Respiratory 23 Rate [Anterior Bilateral] Blood Pressure 158/86 [158/86] O2 Sat by Pulse 100 Oximetry - Reevaluation(s) Reevaluation #2: 11/01/18 02:27 Patient is alert and oriented 3 and is not in distress. Labs were drawn and chest x-ray was ordered. Patient also received a DuoNeb treatment in the ED as well as Solu-Medrol intramuscular injection. Lab test results were reviewed and are unremarkable. Chest x-ray shows a small area of consolidation in the right upper lung hameed consistent with pneumonia. Patient was treated in the ED with Levaquin 750 mg by mouth. 11/01/18 02:32 ED Medical Decision Making - Lab Data Result diagrams: 10/31/18 21:41 10/31/18 21:41 - Radiology Data Radiology results: report reviewed, image reviewed Chest x-ray shows a small area in the Right upper lung hameed consistent with pneumonia - Medical Decision Making Patient is alert and oriented 3 and is not in distress. Labs were drawn and chest x-ray was ordered. Patient also received a DuoNeb treatment in the ED as well as Solu-Medrol intramuscular injection. Lab test results were reviewed and are unremarkable. Chest x-ray shows a small area of consolidation in the right upper lung hameed consistent with pneumonia. Patient was treated in the ED with Levaquin 750 mg by mouth. - Differential Diagnosis Shortness of breath, Pneumonia, bronchitis, Upper respi. infection Critical care attestation.: If time is entered above; I have spent that time in minutes in the direct care of this critically ill patient, excluding procedure time. ED Disposition Clinical Impression: Shortness of breath Community acquired pneumonia Qualifiers: Laterality: right Lung location: upper lobe of lung Qualified Code(s): J18.1 - Lobar pneumonia, unspecified organism Disposition: TO HOME OR SELFCARE Is pt being admited?: No Does the pt Need Aspirin: No Condition: Stable Instructions: Community-acquired Pneumonia (ED), Abdominal Pain (ED) Additional Instructions: Take medications with food, drink plenty of fluids and follow-up with your primary care physician in 7-10 days for reevaluation. Return to the ED immediately if symptoms get worse. Prescriptions: levoFLOXacin [Levaquin TAB] 500 mg PO QDAY #10 tablet methylPREDNISolone [Medrol Dose Ramakrishna] 4 mg PO DAILY #21 pack Ibuprofen [Motrin] 600 mg PO Q8H PRN #20 tablet PRN Reason: Pain ALBUTEROL Inhaler(NF) [VENTOLIN Inhaler(NF)] 1 puff IH Q4H PRN #1 inha PRN Reason: Dyspnea Referrals: PRIMARY CARE, [Primary Care Provider] - 3-5 Days Time of Disposition: 03:31 Print Language: ANDORRAN
== END 2018-11-01 04:35 | disposition home or self-care (01) ==
LOC: ED 21:11
DX: J18.1 Lobar pneumonia, unspecified organism (principal)
CPT/HCPCS: 36415; 71046; 80053; 84703; 85025; 94640; 96372; 99284; J2930

== ENCOUNTER 2018-11-30 12:24 | Emergency (ER) | payer MEDICAID ==
--- NOTE | 2018-11-30 12:37 | Emergency Department Report ---
Blank Doc - Documentation Documentation: This is a 38-year-old female that presents with headache, blurry vision, and d izziness. HX of HTN but denies taking medications. This initial assessment/diagnostic orders/clinical plan/treatment(s) is/are subject to change based on patient's health status, clinical progression and re- assessment by fellow clinical providers in the ED. Further treatment and workup at subsequent clinical providers discretion. Patient/guardians urged not to elope from the ED as their condition may be serious if not clinically assessed and managed. Initial orders include: 1- Patient sent to [facility] for further evaluation and treatment 2- CT head
[2018-11-30] MEDS ORDERED: FIORICET PO ONE (13:13)
[2018-11-30] MEDS ORDERED: CATAPRES PO ONE (13:13)
[2018-11-30] MEDS ORDERED: IBUPROFEN PO ONE (13:13)
--- NOTE | 2018-11-30 13:14 | Emergency Department Report ---
HPI - General Chief Complaint: Headache Time Seen by Provider: 11/30/18 12:35 - HPI HPI: Patient is a pleasant 38-year-old who comes to the ER complaining of feeling dizzy and headache. She noted that her blood pressure was elevated but she also has a history of migraines so she is not sure if the migraines causing the elevated blood pressure or vice versa. Patient does take lisinopril home. CT scan was ordered from triage and is negative for acute process. Patient states the usual [id number] medications that she taken at home did not make the pain any better. Nothing seems to make the pain worse. Patient was ambulatory without deficit and afebrile on admission to [facility]. 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, Scoliosis - Surgical History Past Surgical History?: No - Social History Smoking Status: Never Smoker Substance Use Type: None - Medications Home Medications: Home Medications Medication Instructions Recorded Confirmed Last Taken Type Lisinopril [Zestril TAB] 25 mg PO QDAY #15 tab 11/30/18 Unknown Rx Lisinopril [Zestril TAB] 30 mg PO QDAY #30 tab 11/30/18 Unknown Rx Sulfamethoxazole/Trimethoprim 1 each PO BID #10 tablet 11/30/18 Unknown Rx [Bactrim DS TAB] ED Review of Systems ROS: Stated complaint: DIZZY/LIGHT HEADED/HEAD PAIN Other details as noted in HPI Comment: All other systems reviewed and negative Physical Exam - Physical Exam Vital Signs: Vital Signs 11/30/18 12:27 Temperature 98.3 F Pulse Rate 76 Respiratory 20 Rate Blood Pressure 211/104 O2 Sat by Pulse 97 Oximetry Physical Exam: WDWN patient in NAD VS per RN flow sheet Alert and oriented to person, place and time. S1-S2. No S3 or S4. No systolic or diastolic murmur. No JVD. No pitting edema. Lungs clear to auscultation bilaterally anteriorly and posteriorly. Abdomen soft nontender bowel sounds X4 Moves all extremities well. Mood and affect appropriate. ED Course Vital Signs 11/30/18 12:27 Temperature 98.3 F Pulse Rate 76 Respiratory 20 Rate Blood Pressure 211/104 O2 Sat by Pulse 97 Oximetry ED Medical Decision Making - Lab Data Result diagrams: 11/30/18 12:43 11/30/18 12:43 - Radiology Data Radiology results: report reviewed, image reviewed - Medical Decision Making Lab Results 11/30/18 11/30/18 11/30/18 Range/Units 12:43 12:43 12:43 WBC 3.3 L (4.5-11.0) K/mm3 RBC 3.90 (3.65-5.03) M/mm3 Hgb 11.8 (10.1-14.3) gm/dl Hct 35.1 (30.3-42.9) % MCV 90 (79-97) fl MCH 30 (28-32) pg MCHC 34 (30-34) % RDW 13.9 (13.2-15.2) % Plt Count 136 L (140-440) K/mm3 Lymph % (Auto) 30.8 (13.4-35.0) % [place] % (Auto) 11.3 H (0.0-7.3) % Eos % (Auto) 2.3 (0.0-4.3) % Baso % (Auto) 0.9 (0.0-1.8) % Lymph # 1.0 L (1.2-5.4) K/mm3 [place] # 0.4 (0.0-0.8) K/mm3 Eos # 0.1 (0.0-0.4) K/mm3 Baso # 0.0 (0.0-0.1) K/mm3 Seg Neutrophils % 54.7 (40.0-70.0) % Seg Neutrophils # 1.8 (1.8-7.7) K/mm3 Sodium 141 (137-145) mmol/L Potassium 3.4 L (3.6-5.0) mmol/L Chloride 104.6 (98-107) mmol/L Carbon Dioxide 24 (22-30) mmol/L Anion Gap 16 mmol/L BUN 6 L (7-17) mg/dL Creatinine 0.7 (0.7-1.2) mg/dL Estimated GFR > 60 ml/min BUN/Creatinine Ratio 9 % Glucose 102 H (65-100) mg/dL Calcium 9.0 (8.4-10.2) mg/dL HCG, Qual Negative (Negative) Urine Color (Yellow) Urine Turbidity (Clear) Urine pH (5.0-7.0) Ur Specific [place] (1.003-1.030) Urine Protein (Negative) mg/dL Urine Glucose (UA) (Negative) mg/dL Urine Ketones (Negative) mg/dL Urine Blood (Negative) Urine Nitrite (Negative) Urine Bilirubin (Negative) Urine Urobilinogen (<2.0) mg/dL Ur Leukocyte Esterase (Negative) Urine WBC (Auto) (0.0-6.0) /HPF Urine RBC (Auto) (0.0-6.0) /HPF U Epithel Cells (Auto) (0-13.0) /HPF Urine Bacteria (Auto) (Negative) /HPF Urine Mucus /HPF 11/30/18 Range/Units 14:49 WBC (4.5-11.0) K/mm3 RBC (3.65-5.03) M/mm3 Hgb (10.1-14.3) gm/dl Hct (30.3-42.9) % MCV (79-97) fl MCH (28-32) pg MCHC (30-34) % RDW (13.2-15.2) % Plt Count (140-440) K/mm3 Lymph % (Auto) (13.4-35.0) % [place] % (Auto) (0.0-7.3) % Eos % (Auto) (0.0-4.3) % Baso % (Auto) (0.0-1.8) % Lymph # (1.2-5.4) K/mm3 [place] # (0.0-0.8) K/mm3 Eos # (0.0-0.4) K/mm3 Baso # (0.0-0.1) K/mm3 Seg Neutrophils % (40.0-70.0) % Seg Neutrophils # (1.8-7.7) K/mm3 Sodium (137-145) mmol/L Potassium (3.6-5.0) mmol/L Chloride (98-107) mmol/L Carbon Dioxide (22-30) mmol/L Anion Gap mmol/L BUN (7-17) mg/dL Creatinine (0.7-1.2) mg/dL Estimated GFR ml/min BUN/Creatinine Ratio % Glucose (65-100) mg/dL Calcium (8.4-10.2) mg/dL HCG, Qual (Negative) Urine Color Yellow (Yellow) Urine Turbidity Cloudy (Clear) Urine pH 6.0 (5.0-7.0) Ur Specific [place] 1.011 (1.003-1.030) Urine Protein <15 mg/dl (Negative) mg/dL Urine Glucose (UA) Neg (Negative) mg/dL Urine Ketones Neg (Negative) mg/dL Urine Blood Mod (Negative) Urine Nitrite Pos (Negative) Urine Bilirubin Neg (Negative) Urine Urobilinogen 2.0 (<2.0) mg/dL Ur Leukocyte Esterase Lg (Negative) Urine WBC (Auto) 57.0 H (0.0-6.0) /HPF Urine RBC (Auto) 5.0 (0.0-6.0) /HPF U Epithel Cells (Auto) 22.0 H (0-13.0) /HPF Urine Bacteria (Auto) 3+ (Negative) /HPF Urine Mucus 3+ /HPF Vital Signs 11/30/18 11/30/18 12:27 13:32 Temperature 98.3 F Pulse Rate 76 76 Respiratory 20 Rate Blood Pressure 211/104 211/104 O2 Sat by Pulse 97 Oximetry Vital Signs 11/30/18 11/30/18 11/30/18 12:27 13:32 16:15 Temperature 98.3 F Pulse Rate 76 76 62 Respiratory 20 20 Rate Blood Pressure 211/104 211/104 Blood Pressure 147/91 [Right] O2 Sat by Pulse [address] noted neuro intact without deficit no cp. no sob. medicated for pain and for bp in ER BP trended down urine noted medicated for UTI dc home with dc plan of care and pcp follow up Critical care attestation.: If time is entered above; I have spent that time in minutes in the direct care of this critically ill patient, excluding procedure time. ED Disposition Clinical Impression: UTI (urinary tract infection), Hypokalemia, HTN (hypertension) Disposition: DC-01 TO HOME OR SELFCARE Is pt being admited?: No Does the pt Need Aspirin: No Condition: Stable Instructions: Urinary Tract Infection in Women (ED), Hypertension (ED) Additional Instructions: DIET TOLERATED- LOW FAT AND LOW SODIUM THIS WILL HELP YOUR BP WEIGHT REDUCTION WILL ALSO HELP YOUR BLOOD PRESSURE DRINK A LOT OF WATER DAILY MEDS ORDERED TODAY IN ER FOLLOW INSTRUCTIONS ON THE BOTTLE FOLLOW UP PCP WITHIN 48 HOURS TO ENSURE YOU ARE GETTING BETTER REFERRAL BELOW ACTIVITY TOLERATED MOTRIN OR TYLENOL FOR PAIN RETURN TO THE ER FOR WORSENING SYMPTOMS NOT RELIEVED BY YOUR MEDICATIONS. Prescriptions: Sulfamethoxazole/Trimethoprim [Bactrim DS TAB] 1 each PO BID #10 tablet Lisinopril [Zestril TAB] 25 mg PO QDAY #15 tab Lisinopril [Zestril TAB] 30 mg PO QDAY #30 tab Referrals: [facility] [Outside] - 3-5 Days Time of Disposition: 15:18
[2018-11-30 13:21] LABS: Basophils % (Auto) 0.9 % (0.0-1.8); Eosinophils # (Auto) 0.1 K/mm3 (0.0-0.4); Eosinophils % (Auto) 2.3 % (0.0-4.3); Hematocrit 35.1 % (30.3-42.9); Hemoglobin 11.8 gm/dl (10.1-14.3); Lymphocytes % (Auto) 30.8 % (13.4-35.0); Mean Corpuscular HGB Conc 34 % (30-34); Mean Corpuscular Volume 90 fl (79-97); Monocytes # (Auto) 0.4 K/mm3 (0.0-0.8); Monocytes % (Auto) 11.3 % (0.0-7.3); Platelet Count 136 K/mm3 (140-440); Red Cell Distribution Width 13.9 % (13.2-15.2)
[2018-11-30 13:29] LABS: BUN/Creatinine Ratio 9; Blood Urea Nitrogen 6 mg/dL (7-17); Hemolysis Index 2
--- NOTE | 2018-11-30 15:04 | Cat Scan Report ---
CT HEAD WITHOUT CONTRAST: HISTORY: Headache. TECHNIQUE: Sequential 2.5mm CT images. COMPARISON: none. FINDINGS: Cerebral Parenchyma: Within normal limits. Cerebellum: Within normal limits. Brainstem: Within normal limits. Ventricles: Normal. Sella: Normal. Extra-axial spaces: Normal. Basal Cisterns: Normal. Intracranial Hemorrhage: None. Midline Shift: None. Calvarium: Normal. Sinuses: Normal. Mastoid Air Cells: Normal. Visualized Orbits: Normal. IMPRESSION: Cranial CT scan within normal limits.
[2018-11-30 15:10] LABS: Color,Urine Yellow (Yellow)
[2018-11-30 15:11] LABS: Bacteria,Urine 3+ /HPF (Negative); Bilirubin,Urine NEG (Negative); Blood,Urine MOD (Negative); Mucus,Urine 3+ /HPF; Protein,Urine <15 mg/dL mg/dL (Negative)
[2018-11-30] MEDS ORDERED: XYLOCAINE 1% MPF 5 mL INFILTRATI ONE (15:16)
[2018-11-30] MEDS ORDERED: ROCEPHIN IM ONE (15:16)
[2018-11-30 16:16] VITALS: BP 147/91
== END 2018-11-30 16:15 | disposition home or self-care (01) ==
LOC: ED 12:24
DX: I10 Essential (primary) hypertension (principal); N39.0 Urinary tract infection, site not specified; E87.6 Hypokalemia; G43.909 Migraine, unspecified, not intractable, without status migrainosus; Z79.899 Other long term (current) drug therapy
CPT/HCPCS: 36415; 70450; 80048; 81001; 84703; 85025; 87076; 87086; 87186; 96372; 99284; J0696

== ENCOUNTER 2019-02-04 09:21 | Emergency (ER) | payer MEDICAID ==
[2019-02-04 09:36] VITALS: BP 138/86
[2019-02-04] MEDS ORDERED: NORCO 5/325 PO STA (11:00)
--- NOTE | 2019-02-04 11:37 | XRay Report ---
CLINICAL DATA: knee pain TECHNICAL DATA: AP, both obliques, and lateral views of the knee. FINDINGS: The bone mineralization is normal. There is normal alignment of the knee. There is no evidence of fra cture or dislocation. There is no significant joint effusion. The soft tissues are normal. IMPRESSION: No acute abnormality identified. Signer Name: Melchor Black MD Signed: 02/04/2019 11:33 AM Workstation Name: [id number]
--- NOTE | 2019-02-04 11:57 | Emergency Department Report ---
ED Lower Extremity HPI - General Chief Complaint: Extremity Injury, Lower Stated Complaint: RT KNEE PAIN Time Seen by Provider: 02/04/19 10:58 Source: patient Mode of arrival: Ambulatory Limitations: No Limitations - History of Present Illness Initial Comments: 38-year-old obese -Serbian female presents to the emergency department complaining of right knee pain. She was ambulating to the restroom To use restroom, tripped over her steel toed boots, causing her to fall forward fall in for into her bathroom, landing on her right knee hitting the tile on the bathroom floor this cause pain with palpation and range of motion. She presents to the ED for further evaluation of the knee. Pain is dull, throbbing, worse with palpation. No swelling noted. No pre-existing injury reported. MD Complaint: knee injury Injury: Knee: Right Type of Injury: blunt Place: home Severity: moderate Context: fall, direct blow Associated Symptoms: able to partially bear weight. denies: swelling, numbness - Related Data Previous Rx's Medication Instructions Recorded Last Taken Type Lisinopril [Zestril TAB] 25 mg PO QDAY #15 tab 11/30/18 Unknown Rx Lisinopril [Zestril TAB] 30 mg PO QDAY #30 tab 11/30/18 Unknown Rx Sulfamethoxazole/Trimethoprim 1 each PO BID #10 tablet 11/30/18 Unknown Rx [Bactrim DS TAB] Ketorolac [Toradol] 10 mg PO Q6H PRN #14 tablet 02/04/19 Unknown Rx Allergies Allergy/AdvReac Type Severity Reaction Status Date / Time No Known Allergies Allergy Verified 02/04/19 09:25 ED Review of Systems ROS: Stated complaint: RT KNEE PAIN Other details as noted in HPI Comment: All other systems reviewed and negative ED Past Medical Hx - Past Medical History Previous Medical History?: Yes Hx Hypertension: Yes Hx Arthritis: Yes Hx Headaches / Migraines: Yes Additional medical history: anxiety, skin rash, 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, Sc oliosis - Surgical History Past Surgical History?: No - Social History Smoking Status: Never Smoker Substance Use Type: Alcohol - Medications Home Medications: Home Medications Medication Instructions Recorded Confirmed Last Taken Type Lisinopril [Zestril TAB] 25 mg PO QDAY #15 tab 11/30/18 Unknown Rx Lisinopril [Zestril TAB] 30 mg PO QDAY #30 tab 11/30/18 Unknown Rx Sulfamethoxazole/Trimethoprim 1 each PO BID #10 tablet 11/30/18 Unknown Rx [Bactrim DS TAB] Ketorolac [Toradol] 10 mg PO Q6H PRN #14 tablet 02/04/19 Unknown Rx ED Physical Exam - General Limitations: No Limitations General appearance: alert, in no apparent distress - Head Head exam: Present: atraumatic, normocephalic - Eye Eye exam: Present: normal appearance - ENT ENT exam: Present: mucous membranes moist - Neck Neck exam: Present: normal inspection - Respiratory Respiratory exam: Present: normal lung sounds bilaterally. Absent: respiratory distress - Cardiovascular Cardiovascular Exam: Present: regular rate, normal rhythm. Absent: systolic murmur, diastolic murmur, rubs, gallop - GI/Abdominal GI/Abdominal exam: Present: soft, normal bowel sounds - Extremities Exam Extremities exam: Present: normal inspection, tenderness - Back Exam Back exam: Present: normal inspection, tenderness (anterior aspect of the knee in the patellar region. No effusion noted. No bruising. No broken skin. Normal varus and valgus). Absent: muscle spasm, paraspinal tenderness - Neurological Exam Neurological exam: Present: alert, oriented X3, CN II-XII intact, normal gait - Psychiatric Psychiatric exam: Present: normal affect, normal mood - Skin Skin exam: Present: warm, dry, intact, normal color. Absent: rash ED Course Vital Signs 02/04/19 02/04/19 09:34 11:06 Temperature 98.4 F Pulse Rate 77 Respiratory 18 18 Rate Blood Pressure 138/86 O2 Sat by Pulse 98 Oximetry ED Lower Extremity MDM - Radiology Data Radiology results: report reviewed (no fractures noted. No deformity) - Medical Decision Making 38-year-old obese female status post fall. 2. Right knee with pain and normal x-rays, appears to have a knee contusion. No deformity or osseous injury noted. Plan is to ice Critical care attestation.: If time is entered above; I have spent that time in minutes in the direct care of this critically ill patient, excluding procedure time. ED Disposition Clinical Impression: Knee contusion, Fall Disposition: TO HOME OR SELFCARE Is pt being admited?: No Does the pt Need Aspirin: No Condition: Stable Instructions: Ice Pack Application (ED), Knee Pain (ED) Prescriptions: Ketorolac [Toradol] 10 mg PO Q6H PRN #14 tablet PRN Reason: Pain Referrals: PRIMARY CARE, [Primary Care Provider] - 3-5 Days BEATRICE DON MD [Staff Physician] - 3-5 Days
== END 2019-02-04 12:18 | disposition home or self-care (01) ==
LOC: ED 09:21
DX: S80.01XA Contusion of right knee, initial encounter (principal); I10 Essential (primary) hypertension; M19.90 Unspecified osteoarthritis, unspecified site; G43.909 Migraine, unspecified, not intractable, without status migrainosus; W18.30XA Fall on same level, unspecified, initial encounter; Y93.89 Activity, other specified; Y92.89 Other specified places as the place of occurrence of the external cause; Y99.8 Other external cause status
CPT/HCPCS: 99283

== ENCOUNTER 2019-02-08 17:10 | Emergency (ER) | payer MEDICAID ==
--- NOTE | 2019-02-08 17:38 | Event Note ---
ED Screening Note Date of service: 02/08/19 Time: 17:37 ED Screening Note: 38 y/o female comes in for headache and elevated bp. Has been out of her medication months. This initial assessment/diagnostic orders/clinical plan/treatment(s) is/are subject to change based on patients health status, clinical progression and re- assessment by fellow clinical providers in the ED. Further treatment and workup at subsequent clinical providers discretion. Patient/guardian urged not to elope from the ED as their condition may be serious if not clinically assessed and managed. Initial orders include:
[2019-02-08 17:39] VITALS: BP 161/93
[2019-02-08] MEDS ORDERED: REGLAN PO ONE (20:13)
[2019-02-08] MEDS ORDERED: DECADRON IM ONE (20:13)
[2019-02-08] MEDS ORDERED: TYLENOL PO ONE (20:13)
[2019-02-08] MEDS ORDERED: BENADRYL PO ONE (20:13)
--- NOTE | 2019-02-08 20:48 | Emergency Department Report ---
ED Headache HPI - General Chief Complaint: Headache Stated Complaint: HBP/HEADACHE/DIZZY Time Seen by Provider: 02/08/19 17:36 - History of Present Illness Initial Comments: pt is a Timing/Duration: 24 hours, decreasing Quality: moderate Head Injury Location: occipital Recent Head Trauma: occasional headaches Associated Symptoms: denies symptoms Allergies/Adverse Reactions: Allergies No Known Allergies Allergy (Verified 02/04/19 09:25) Home Medications: Ambulatory Orders Lisinopril [Zestril TAB] 25 mg PO QDAY #15 tab 11/30/18 Lisinopril [Zestril TAB] 30 mg PO QDAY #30 tab 11/30/18 Sulfamethoxazole/Trimethoprim [Bactrim DS TAB] 1 each PO BID #10 tablet 11/30/18 Ketorolac [Toradol] 10 mg PO Q6H PRN #14 tablet 02/04/19 Acetaminophen [Acetaminophen TAB] 1,000 mg PO Q6HR PRN #30 tablet 02/08/19 Lisinopril [Zestril TAB] 20 mg PO QDAY #30 tablet 02/08/19 Metoclopramide [Reglan] 10 mg PO Q6H PRN #30 tablet 02/08/19 diphenhydrAMINE [Benadryl CAP] 25 mg PO Q6HR PRN #30 capsule 02/08/19 ED Review of Systems ROS: Stated complaint: HBP/HEADACHE/DIZZY Other details as noted in HPI Constitutional: denies: chills, fever Eyes: denies: eye pain, eye discharge, vision change ENT: denies: ear pain, throat pain Respiratory: denies: cough, shortness of breath, wheezing Cardiovascular: denies: chest pain, palpitations Endocrine: no symptoms reported Gastrointestinal: denies: abdominal pain, nausea, diarrhea Genitourinary: denies: urgency, dysuria, discharge Musculoskeletal: denies: back pain, joint swelling, arthralgia Skin: denies: rash, lesions Neurological: headache. denies: weakness, numbness, paresthesias, confusion, abnormal gait, vertigo Psychiatric: denies: anxiety, depression Hematological/Lymphatic: denies: easy bleeding, easy bruising ED Past Medical Hx - Past Medical History Hx Hypertension: Yes Hx Arthritis: Yes Hx Headaches / Migraines: Yes Additional medical history: anxiety, skin rash, Hx of stillborn 9-29-17, Scoliosis - Social History Smoking Status: Never Smoker Substance Use Type: Alcohol - Medications Home Medications: Home Medications Medication Instructions Recorded Confirmed Last Taken Type Lisinopril [Zestril TAB] 25 mg PO QDAY #15 tab 11/30/18 Unknown Rx Lisinopril [Zestril TAB] 30 mg PO QDAY #30 tab 11/30/18 Unknown Rx Sulfamethoxazole/Trimethoprim 1 each PO BID #10 tablet 11/30/18 Unknown Rx [Bactrim DS TAB] Ketorolac [Toradol] 10 mg PO Q6H PRN #14 tablet 02/04/19 Unknown Rx Acetaminophen [Acetaminophen TAB] 1,000 mg PO Q6HR PRN #30 tablet 02/08/19 Unknown Rx Lisinopril [Zestril TAB] 20 mg PO QDAY #30 tablet 02/08/19 Unknown Rx Metoclopramide [Reglan] 10 mg PO Q6H PRN #30 tablet 02/08/19 Unknown Rx diphenhydrAMINE [Benadryl CAP] 25 mg PO Q6HR PRN #30 capsule 02/08/19 Unknown Rx ED Physical Exam - General Limitations: No Limitations General appearance: alert, in no apparent distress - Head Head exam: Present: atraumatic, normocephalic - Eye Eye exam: Present: normal appearance, PERRL, EOMI. Absent: conjunctival injection, nystagmus Pupils: Present: normal accommodation - ENT ENT exam: Present: mucous membranes moist - Neck Neck exam: Present: normal inspection, full ROM. Absent: tenderness, lymphadenopathy, thyromegaly - Expanded Neck Exam Expanded Neck exam: Absent: tenderness, midline deformity, anterior neck swelling, thyroid mass, carotid bruit, tracheal deviation - Respiratory Respiratory exam: Present: normal lung sounds bilaterally. Absent: respiratory distress, wheezes, stridor, chest wall tenderness - Cardiovascular Cardiovascular Exam: Present: regular rate, normal rhythm, normal heart sounds. Absent: systolic murmur, diastolic murmur, rubs, gallop - GI/Abdominal GI/Abdominal exam: Present: soft, normal bowel sounds. Absent: distended, tenderness, guarding, rebound, rigid, bruit, hernia - Rectal Rectal exam: Present: deferred - Extremities Exam Extremities exam: Present: normal inspection, full ROM, normal capillary refill. Absent: tenderness - Back Exam Back exam: Present: normal inspection, full ROM. Absent: tenderness, CVA tenderness (R), CVA tenderness (L), muscle spasm, paraspinal tenderness, vertebral tenderness, rash noted - Neurological Exam Neurological exam: Present: alert, oriented X3, CN II-XII intact, normal gait. Absent: motor sensory deficit, reflexes normal - Expanded Neurological Exam Expanded Neurological exam: Absent: ataxia Patient oriented to: Present: person, place, time Speech: Present: fluid speech Cranial nerves: EOM's Intact: Normal, Gag Reflex: Normal, Tongue Deviation: Normal, Nystagmus: Normal, Facial Sensation: Normal Motor strength exam: RUE: 5, LUE: 5, RLE: 5, LLE: 5 DTR: bicep (R): 2+, bicep (L): 2+, ankle (R): 2+, ankle (L): 2+ Best Eye Response ([place]): (4) open spontaneously Best Motor Response ([place]): (6) obeys commands Best Verbal Response ([place]): (5) oriented Dusty Total: 15 - Psychiatric Psychiatric exam: Present: normal affect, normal mood - Skin Skin exam: Present: warm ED Course Vital Signs 02/08/19 17:37 Temperature 98.1 F Pulse Rate 68 Respiratory 18 Rate Blood Pressure 161/93 O2 Sat by Pulse 100 Oximetry ED Medical Decision Making - Medical Decision Making headache is improved , ent exam is normal , pt declines ct scant as headache resolved with medictions given in ed. Critical care attestation.: If time is entered above; I have spent that time in minutes in the direct care of this critically ill patient, excluding procedure time. ED Disposition Clinical Impression: Headache Qualifiers: Headache type: unspecified Headache chronicity pattern: unspecified pattern Intractability: not intractable Qualified Code(s): R51 - Headache Disposition: DC-01 TO HOME OR SELFCARE Is pt being admited?: No Does the pt Need Aspirin: No Condition: Stable Instructions: Acute Headache (ED) Prescriptions: Acetaminophen [Acetaminophen TAB] 1,000 mg PO Q6HR PRN #30 tablet PRN Reason: Headache diphenhydrAMINE [Benadryl CAP] 25 mg PO Q6HR PRN #30 capsule PRN Reason: Headache Metoclopramide [Reglan] 10 mg PO Q6H PRN #30 tablet PRN Reason: Headache Lisinopril [Zestril TAB] 20 mg PO QDAY #30 tablet Referrals: SALOME LIMA MD [Primary Care Provider] - 3-5 Days RASHAD GILL MD [Referring] - 3-5 Days Forms: Work/School Release Form(ED) Time of Disposition: 20:58
== END 2019-02-08 20:57 | disposition home or self-care (01) ==
LOC: ED 17:10
DX: G43.909 Migraine, unspecified, not intractable, without status migrainosus (principal); F41.9 Anxiety disorder, unspecified; I10 Essential (primary) hypertension; Z79.899 Other long term (current) drug therapy
CPT/HCPCS: 96372; 99282; J1100

== ENCOUNTER 2019-03-08 09:54 | Emergency (ER) | payer MEDICAID ==
[2019-03-08 10:53] VITALS: BP 130/83
[2019-03-08 11:19] LABS: Basophils % (Auto) 0.6 % (0.0-1.8); Eosinophils # (Auto) 0.1 K/mm3 (0.0-0.4); Eosinophils % (Auto) 1.5 % (0.0-4.3); Hematocrit 35.1 % (30.3-42.9); Hemoglobin 11.9 gm/dl (10.1-14.3); Lymphocytes # (Auto) 0.7 K/mm3 (1.2-5.4); Lymphocytes % (Auto) 20.1 % (13.4-35.0); Mean Corpuscular HGB Conc 34 % (30-34); Mean Corpuscular Volume 90 fl (79-97); Monocytes # (Auto) 0.5 K/mm3 (0.0-0.8); Monocytes % (Auto) 12.4 % (0.0-7.3); Red Blood Count 3.91 M/mm3 (3.65-5.03); Red Cell Distribution Width 13.8 % (13.2-15.2)
[2019-03-08 11:29] LABS: BUN/Creatinine Ratio 10; Blood Urea Nitrogen 6 mg/dL (7-17); Calcium 9.2 mg/dL (8.4-10.2); Hemolysis Index 4
[2019-03-08 11:34] LABS: Platelet Count 86 K/mm3 (140-440)
[2019-03-08] MEDS ORDERED: NACL 0.9% 1000 ML 1,000 ML IV ONE (11:48)
[2019-03-08] MEDS ORDERED: MORPHINE IV ONE (11:48)
--- NOTE | 2019-03-08 13:25 | Emergency Department Report ---
ED Dizziness HPI - General Chief Complaint: Dizziness Stated Complaint: HBP/HEADACHE/DIZZY Time Seen by Provider: 03/08/19 11:48 Source: patient Mode of arrival: Ambulatory Limitations: No Limitations - History of Present Illness Initial Comments: This is a 38-year-old female nontoxic, well nourished in appearance, no acute signs of distress presents to the ED with c/o of acute on chronic headache and dizziness. Patient describes headache as diffuse with level of 8 out of 10. Patient stated that she is not sure if her blood pressure is elevated. Patient denies thunderclap headache. Patient denies any radiation of pain. Patient denies any head trauma. Patient denies any visual changes. Patient denies worse headache. Patient denies any numbness, tingling, fever, chills, nausea, vomiting, chest pain, shortness of breath, stiff neck. Patient denies facial drooping or one sided weakness. Patient denies any radiation of pain. Patient denies any allergies. Past medical history includes migraine headaches. MD Complaint: dizziness, other (headache) -: days(s) Timing: gradual onset Description: lightheadedness History of Same: Yes History of Trauma: No Severity: mild Improves With: nothing Worsens With: nothing Associated Symptoms: denies other symptoms. denies: ataxia, chest pain, confusion, cough, diaphoresis, fever/chills, loss of appetite, malaise, rash, seizure, syncope, weakness - Related Data Previous Rx's Medication Instructions Recorded Last Taken Type Lisinopril [Zestril TAB] 25 mg PO QDAY #15 tab 11/30/18 Unknown Rx Lisinopril [Zestril TAB] 30 mg PO QDAY #30 tab 11/30/18 Unknown Rx Sulfamethoxazole/Trimethoprim 1 each PO BID #10 tablet 11/30/18 Unknown Rx [Bactrim DS TAB] Ketorolac [Toradol] 10 mg PO Q6H PRN #14 tablet 02/04/19 Unknown Rx Acetaminophen [Acetaminophen TAB] 1,000 mg PO Q6HR PRN #30 tablet 02/08/19 Unknown Rx Lisinopril [Zestril TAB] 20 mg PO QDAY #30 tablet 02/08/19 Unknown Rx Metoclopramide [Reglan] 10 mg PO Q6H PRN #30 tablet 02/08/19 Unknown Rx diphenhydrAMINE [Benadryl CAP] 25 mg PO Q6HR PRN #30 capsule 02/08/19 Unknown Rx Butalb/Acetaminophen/Caffeine 1 cap PO Q6HR PRN #12 cap 03/08/19 Unknown Rx [Fioricet 50-300-40 mg CAP] Sulfamethoxazole/Trimethoprim 1 each PO BID #14 tablet 03/08/19 Unknown Rx [Bactrim DS TAB] Allergies Allergy/AdvReac Type Severity Reaction Status Date / Time No Known Allergies Allergy Verified 02/04/19 09:25 ED Review of Systems ROS: Stated complaint: HBP/HEADACHE/DIZZY Other details as noted in HPI Constitutional: denies: chills, fever Eyes: denies: eye pain, eye discharge, vision change ENT: denies: ear pain, throat pain Respiratory: denies: cough, shortness of breath, wheezing Cardiovascular: denies: chest pain, palpitations Endocrine: no symptoms reported Gastrointestinal: denies: abdominal pain, nausea, diarrhea Genitourinary: denies: urgency, dysuria, discharge Musculoskeletal: denies: back pain, joint swelling, arthralgia Skin: denies: rash, lesions Neurological: headache, vertigo. 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, Scol iosis - Surgical History Past Surgical History?: No - Social History Smoking Status: Never Smoker Substance Use Type: Alcohol - Medications Home Medications: Home Medications Medication Instructions Recorded Confirmed Last Taken Type Lisinopril [Zestril TAB] 25 mg PO QDAY #15 tab 11/30/18 Unknown Rx Lisinopril [Zestril TAB] 30 mg PO QDAY #30 tab 11/30/18 Unknown Rx Sulfamethoxazole/Trimethoprim 1 each PO BID #10 tablet 11/30/18 Unknown Rx [Bactrim DS TAB] Ketorolac [Toradol] 10 mg PO Q6H PRN #14 tablet 02/04/19 Unknown Rx Acetaminophen [Acetaminophen TAB] 1,000 mg PO Q6HR PRN #30 tablet 02/08/19 Unknown Rx Lisinopril [Zestril TAB] 20 mg PO QDAY #30 tablet 02/08/19 Unknown Rx Metoclopramide [Reglan] 10 mg PO Q6H PRN #30 tablet 02/08/19 Unknown Rx diphenhydrAMINE [Benadryl CAP] 25 mg PO Q6HR PRN #30 capsule 02/08/19 Unknown Rx Butalb/Acetaminophen/Caffeine 1 cap PO Q6HR PRN #12 cap 03/08/19 Unknown Rx [Fioricet 50-300-40 mg CAP] Sulfamethoxazole/Trimethoprim 1 each PO BID #14 tablet 03/08/19 Unknown Rx [Bactrim DS TAB] ED Physical Exam - General Limitations: No Limitations General appearance: alert, in no apparent distress - Head Head exam: Present: atraumatic, normocephalic - Eye Eye exam: Present: normal appearance, PERRL, EOMI - Neck Neck exam: Present: normal inspection, full ROM. Absent: tenderness, meningismus, lymphadenopathy - Extremities Exam Extremities exam: Present: normal inspection, full ROM, normal capillary refill. Absent: tenderness - Back Exam Back exam: Present: normal inspection, full ROM. Absent: tenderness, CVA tenderness (R), CVA tenderness (L), muscle spasm, paraspinal tenderness, vertebral tenderness, rash noted - Neurological Exam Neurological exam: Present: alert, oriented X3, normal gait - Expanded Neurological Exam Expanded Patient oriented to: Present: person, place, time Cranial nerves: EOM's Intact: Normal, Facial Sensation: Normal Cerebellar function: Finger to Nose: Normal Motor strength exam: RUE: 5, LUE: 5, RLE: 5, LLE: 5 Best Eye Response ([place]): (4) open spontaneously Best Motor Response ([place]): (6) obeys commands Best Verbal Response ([place]): (5) oriented [place] Total: 15 - Psychiatric Psychiatric exam: Present: normal affect, normal mood - Skin Skin exam: Present: warm, dry, intact, normal color. Absent: rash ED Course Vital Signs 03/08/19 10:52 Temperature 98.4 F Pulse Rate 79 Respiratory 20 Rate Blood Pressure 130/83 O2 Sat by Pulse 99 Oximetry - Reevaluation(s) Reevaluation #1: 03/08/19 13:28 Patient is speaking in full sentences with no signs of distress noted. ED Medical Decision Making - Lab Data Result diagrams: 03/08/19 11:01 03/08/19 11:01 - Medical Decision Making This is a 38-year-old female that presents with UTI, headache and dizziness. Patient is stable and was examined by me. Patient is neurologically stable. There is no stiff neck or neck pain. Vital signs are stable. Patient is afebrile. Patient received Morphine and 1 L of normal saline which the patient stated that headache has subsided and resolved. Labs unremarkable. CT of head unremarkable and dictated by the radiologist. Patient was instructed not to operate any machinery after discharged due to drowsiness of Morphine. Patient stated that a family member will drive patient home. Patient is discharged with Fioricet. Patient was referred to Follow-up with a primary care/neurologist doctor in 3-5 days or if symptoms worsen and continue return to emergency room as soon as possible. At time of discharge, the patient does not seem toxic or ill in appearance. No acute signs of distress noted. Patient agrees to discharge treatment plan of care. No further questions noted by the patient. Critical care attestation.: If time is entered above; I have spent that time in minutes in the direct care of this critically ill patient, excluding procedure time. ED Disposition Clinical Impression: Dizziness Headache Qualifiers: Headache type: unspecified Headache chronicity pattern: episodic headache Intractability: not intractable Qualified Code(s): R51 - Headache UTI (urinary tract infection) Qualifiers: Urinary tract infection type: acute cystitis Hematuria presence: without hematuria Qualified Code(s): N30.00 - Acute cystitis without hematuria Disposition: - TO HOME OR SELFCARE Is pt being admited?: No Does the pt Need Aspirin: No Condition: Stable Instructions: Dizziness (ED), Urinary Tract Infection in Women (ED), Acute Headache (ED), Butalbital/Aspirin/Caffeine (By mouth) Additional Instructions: Follow-up with a primary care doctor in 3-5 days or if symptoms worsen and continue return to emergency room as soon as possible. Prescriptions: Sulfamethoxazole/Trimethoprim [Bactrim DS TAB] 1 each PO BID #14 tablet Butalb/Acetaminophen/Caffeine [Fioricet 50-300-40 mg CAP] 1 cap PO Q6HR PRN #12 cap PRN Reason: Headache Referrals: PRIMARY CARE, [Primary Care Provider] - 3-5 Days MI HUTCHINSON MD [Staff Physician] - 3-5 Days [facility] [Outside] - 3-5 Days [facility] [Outside] - 3-5 Days Forms: Work/School Release Form(ED)
[2019-03-08 15:09] LABS: Bacteria,Urine 2+ /HPF (Negative); Bilirubin,Urine NEG (Negative); Blood,Urine SM (Negative); Color,Urine Amber (Yellow); Mucus,Urine 3+ /HPF; Protein,Urine <15 mg/dL mg/dL (Negative)
[2019-03-08 15:31] LABS: HCG Qualitative,Urine Negative (Negative)
--- NOTE | 2019-03-08 16:29 | Cat Scan Report ---
NONENHANCED CT SCAN OF THE BRAIN: INDICATION / CLINICAL INFORMATION: 38 years Female; headache/dizziness. TECHNIQUE: Routine CT head without contrast. All CT scans at this location are performed using CT dos e reduction for ALARA by means of automated exposure control. COMPARISON: CT scan of the brain from November 302018 FINDINGS: BRAIN / INTRACRANIAL CONTENTS: No acute hemorrhage, mass effect, midline shift, hydrocephalus, or acu te, large territorial infarct. I do not see CT findings to suggest chronic ischemic changes or enceph alomalacia. Periventricular and deep hemispheric white matter are normal. CRANIOCERVICAL JUNCTION: No significant abnormality. ORBITS: No significant abnormality of visualized orbits. SINUSES / MASTOIDS: No significant abnormality of the visualized paranasal sinuses or mastoid air sam ls. ADDITIONAL FINDINGS: None IMPRESSION: 1. I do not see an acute parenchymal lesion in the brain Signer Name: Ino Thompson MD Signed: 03/08/2019 4:24 PM Workstation Name: [id number]
== END 2019-03-08 17:22 | disposition home or self-care (01) ==
LOC: ED 09:54
DX: G43.909 Migraine, unspecified, not intractable, without status migrainosus (principal); N39.0 Urinary tract infection, site not specified; I10 Essential (primary) hypertension; R42 Dizziness and giddiness; F41.9 Anxiety disorder, unspecified; M19.90 Unspecified osteoarthritis, unspecified site; Z79.899 Other long term (current) drug therapy
CPT/HCPCS: 36415; 70450; 80048; 81001; 81025; 85025; 96361; 96374; 99284; J2270; J7030; 87086

== ENCOUNTER 2019-03-30 10:21 | Emergency (ER) | payer MEDICAID ==
[2019-03-30 10:34] VITALS: BP 146/93
[2019-03-30] MEDS ORDERED: KETOROLAC 30 MG/1 ML INJ IM ONE (10:45)
--- NOTE | 2019-03-30 10:51 | Emergency Department Report ---
ED General Adult HPI - General Chief complaint: Extremity Problem,Nontraumatic Stated complaint: LEG PAIN Time Seen by Provider: 03/30/19 10:45 Source: patient Mode of arrival: Ambulatory Limitations: No Limitations - History of Present Illness Initial comments: Ms. Duran is a 39-year-old female who has chronic back and bilateral leg pain since age 14. She was diagnosed with neuropathy at a young age complicated by scoliosis. Pain improved with sitting up and heating pad. Burning sensation in both legs. Denies weakness. Denies bowel or bladder incontinence. Denies fever. Denies trauma. She has recurrent pain such as this every 3 years so. She's stands for prolonged period of time at her job. She works at a [employer]. -: Gradual, week(s) (several) Location: left, right, lower extremity Severity scale (0 -10): 10 Quality: burning Consistency: constant Improves with: other (upright physician heating pad) Worsens with: none Associated Symptoms: denies other symptoms Treatments Prior to Arrival: none - Related Data Previous Rx's Medication Instructions Recorded Last Taken Type Lisinopril [Zestril TAB] 25 mg PO QDAY #15 tab 11/30/18 Unknown Rx Lisinopril [Zestril TAB] 30 mg PO QDAY #30 tab 11/30/18 Unknown Rx Sulfamethoxazole/Trimethoprim 1 each PO BID #10 tablet 11/30/18 Unknown Rx [Bactrim DS TAB] Ketorolac [Toradol] 10 mg PO Q6H PRN #14 tablet 02/04/19 Unknown Rx Acetaminophen [Acetaminophen TAB] 1,000 mg PO Q6HR PRN #30 tablet 02/08/19 Unknown Rx Lisinopril [Zestril TAB] 20 mg PO QDAY #30 tablet 02/08/19 Unknown Rx Metoclopramide [Reglan] 10 mg PO Q6H PRN #30 tablet 02/08/19 Unknown Rx diphenhydrAMINE [Benadryl CAP] 25 mg PO Q6HR PRN #30 capsule 02/08/19 Unknown Rx Butalb/Acetaminophen/Caffeine 1 cap PO Q6HR PRN #12 cap 03/08/19 Unknown Rx [Fioricet 50-300-40 mg CAP] Sulfamethoxazole/Trimethoprim 1 each PO BID #14 tablet 03/08/19 Unknown Rx [Bactrim DS TAB] HYDROcodone/APAP 5-325 [[place] 1 each PO Q6HR PRN #10 tablet 03/30/19 Unknown Rx 5/325] Prednisone [predniSONE 10 mg 10 mg PO .TAPER #1 tab.ds.pk 03/30/19 Unknown Rx (6-Day Pack, 21 Tabs)] Allergies Allergy/AdvReac Type Severity Reaction Status Date / Time No Known Allergies Allergy Verified 03/30/19 10:32 ED Review of Systems ROS: Stated complaint: LEG PAIN Other details as noted in HPI Comment: All other systems reviewed and negative Constitutional: denies: fever, malaise Respiratory: denies: cough, shortness of breath Cardiovascular: denies: chest pain Gastrointestinal: denies: abdominal pain, nausea, vomiting ED Past Medical Hx - Past Medical History Previous Medical History?: Yes Hx Hypertension: Yes Hx Arthritis: Yes Hx Headaches / Migraines: Yes Additional medical history: anxiety, skin rash, 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, Scoliosis, spinal cord injury - Surgical History Past Surgical History?: No - Social History Smoking Status: Never Smoker Substance Use Type: None - Medications Home Medications: Home Medications Medication Instructions Recorded Confirmed Last Taken Type Lisinopril [Zestril TAB] 25 mg PO QDAY #15 tab 11/30/18 Unknown Rx Lisinopril [Zestril TAB] 30 mg PO QDAY #30 tab 11/30/18 Unknown Rx Sulfamethoxazole/Trimethoprim 1 each PO BID #10 tablet 11/30/18 Unknown Rx [Bactrim DS TAB] Ketorolac [Toradol] 10 mg PO Q6H PRN #14 tablet 02/04/19 Unknown Rx Acetaminophen [Acetaminophen TAB] 1,000 mg PO Q6HR PRN #30 tablet 02/08/19 Unknown Rx Lisinopril [Zestril TAB] 20 mg PO QDAY #30 tablet 02/08/19 Unknown Rx Metoclopramide [Reglan] 10 mg PO Q6H PRN #30 tablet 02/08/19 Unknown Rx diphenhydrAMINE [Benadryl CAP] 25 mg PO Q6HR PRN #30 capsule 02/08/19 Unknown Rx Butalb/Acetaminophen/Caffeine 1 cap PO Q6HR PRN #12 cap 03/08/19 Unknown Rx [Fioricet 50-300-40 mg CAP] Sulfamethoxazole/Trimethoprim 1 each PO BID #14 tablet 03/08/19 Unknown Rx [Bactrim DS TAB] HYDROcodone/APAP 5-325 [[place] 1 each PO Q6HR PRN #10 tablet 03/30/19 Unknown Rx 5/325] Prednisone [predniSONE 10 mg 10 mg PO .TAPER #1 tab.ds.pk 03/30/19 Unknown Rx (6-Day Pack, 21 Tabs)] ED Physical Exam - General Limitations: No Limitations General appearance: alert, in no apparent distress - Head Head exam: Present: atraumatic, normocephalic - Eye Eye exam: Present: normal appearance - ENT ENT exam: Present: mucous membranes moist - Neck Neck exam: Present: normal inspection, full ROM - Respiratory Respiratory exam: Present: normal lung sounds bilaterally. Absent: respiratory distress, wheezes, rales, rhonchi - Cardiovascular Cardiovascular Exam: Present: regular rate, normal rhythm, normal heart sounds. Absent: systolic murmur, diastolic murmur, rubs, gallop - GI/Abdominal GI/Abdominal exam: Present: soft, normal bowel sounds. Absent: distended, te nderness, guarding, rebound - Extremities Exam Extremities exam: Present: normal inspection, other (5 out of 5 strength in both lower extremities including hip flexion hip extension and knee flexion and knee extension and ankle flexion and full extension) - Back Exam Back exam: Present: normal inspection, full ROM. Absent: tenderness, CVA tenderness (R), vertebral tenderness - Neurological Exam Neurological exam: Present: alert, oriented X3 - Psychiatric Psychiatric exam: Present: normal affect, normal mood - Skin Skin exam: Present: warm, dry, intact, normal color. Absent: rash ED Course Vital Signs 03/30/19 10:32 Temperature 98.9 F Pulse Rate 77 Respiratory 18 Rate Blood Pressure 146/93 [Right] O2 Sat by Pulse 98 Oximetry ED Medical Decision Making - Medical Decision Making Mrs. Duran presents with recurrent neuropathic pain in her legs including back pain. Neurologically intact without red flags such as fever, trauma, weight loss, drug abuse, advanced age. I prescribed prednisone taper and [place]. Referred patient to primary care physician. I provided 10 tablets of [place]. Critical care attestation.: If time is entered above; I have spent that time in minutes in the direct care of this critically ill patient, excluding procedure time. ED Disposition Clinical Impression: Bilateral leg pain, Neuropathic pain, Recurrent low back pain Disposition: TO HOME OR SELFCARE Is pt being admited?: No Does the pt Need Aspirin: No Condition: Stable Instructions: Lumbar Radiculopathy (ED) Prescriptions: HYDROcodone/APAP 5-325 [[place] 5/325] 1 each PO Q6HR PRN #10 tablet PRN Reason: Pain Prednisone [predniSONE 10 mg (6-Day Pack, 21 Tabs)] 10 mg PO .TAPER #1 tab.ds.pk Referrals: RONEN STONE MD [Staff Physician] - 3-5 Days Forms: Work/School Release Form(ED)
== END 2019-03-30 11:09 | disposition home or self-care (01) ==
LOC: ED 10:21
DX: M79.604 Pain in right leg (principal); M79.605 Pain in left leg; M54.5 Low back pain; G89.29 Other chronic pain; I10 Essential (primary) hypertension; G43.909 Migraine, unspecified, not intractable, without status migrainosus; F41.9 Anxiety disorder, unspecified; M19.90 Unspecified osteoarthritis, unspecified site; Z79.899 Other long term (current) drug therapy
CPT/HCPCS: 96372; 99282; J1885

== ENCOUNTER 2019-06-07 18:49 | Emergency (ER) | payer MEDICAID ==
[2019-06-07 20:40] VITALS: BP 144/70
[2019-06-08 00:40] LABS: HCG Qualitative,Urine Negative (Negative)
[2019-06-08 00:55] LABS: Bacteria,Urine 3+ /HPF (Negative); Bilirubin,Urine NEG (Negative); Blood,Urine NEG (Negative); Color,Urine Amber (Yellow); Mucus,Urine 3+ /HPF
[2019-06-08] MEDS ORDERED: LIDOCAINE-MPF (1%) 10 MG/1 ML VIAL 5 ML INFILTRATI ONE (02:42)
[2019-06-08] MEDS ORDERED: SUMAtriptan SUCCINATE 6 MG/0.5 ML INJ SUB-Q ONE (02:42)
--- NOTE | 2019-06-08 03:20 | Emergency Department Report ---
ED General Adult HPI - General Chief complaint: Dyspnea/Respdistress Stated complaint: BLOOD IN URINE/HEADACHE Time Seen by Provider: 06/08/19 02:26 Source: patient Mode of arrival: Ambulatory Limitations: No Limitations - History of Present Illness Initial comments: Patient is a 39-year-old female presents emergency room with complaints of a migraine headache that began 3 days ago. She states the headache is located frontally. She states that she has been taking Fioricet without much relief. She has not seen a primary care physician regarding her migraines and always get seen in the emergency department for them. she states this headache feels similar to prior migraines. She denies any vision changes, numbness, weakness, fever, neck stiffness, thunderclap headache. She states that she has also had dysuria for a few days. States she has also had some mild vaginal discharge. She denies any abdominal pain, nausea, vomiting, fever, any other symptoms. She states her last mental cycle was May 15. She states she has lost medical history of migraines and hypertension. - Related Data Previous Rx's Medication Instructions Recorded Last Taken Type Lisinopril [Zestril TAB] 25 mg PO QDAY #15 tab 11/30/18 Unknown Rx Lisinopril [Zestril TAB] 30 mg PO QDAY #30 tab 11/30/18 Unknown Rx Sulfamethoxazole/Trimethoprim 1 each PO BID #10 tablet 11/30/18 Unknown Rx [Bactrim DS TAB] Ketorolac [Toradol] 10 mg PO Q6H PRN #14 tablet 02/04/19 Unknown Rx Acetaminophen [Acetaminophen TAB] 1,000 mg PO Q6HR PRN #30 tablet 02/08/19 Unknown Rx Metoclopramide [Reglan] 10 mg PO Q6H PRN #30 tablet 02/08/19 Unknown Rx diphenhydrAMINE [Benadryl CAP] 25 mg PO Q6HR PRN #30 capsule 02/08/19 Unknown Rx lisinopriL [Zestril TAB] 20 mg PO QDAY #30 tablet 02/08/19 Unknown Rx Butalb/Acetaminophen/Caffeine 1 cap PO Q6HR PRN #12 cap 03/08/19 Unknown Rx [Fioricet 50-300-40 mg CAP] Sulfamethoxazole/Trimethoprim 1 each PO BID #14 tablet 03/08/19 Unknown Rx [Bactrim DS TAB] HYDROcodone/APAP 5-325 [[place] 1 each PO Q6HR PRN #10 tablet 03/30/19 Unknown Rx 5/325] Prednisone [predniSONE 10 mg 10 mg PO .TAPER #1 tab.ds.pk 03/30/19 Unknown Rx (6-Day Pack, 21 Tabs)] SUMAtriptan SUCCINATE [Imitrex] 25 mg PO BID PRN #12 tab 06/08/19 Unknown Rx cephALEXin [Keflex] 500 mg PO BID 7 Days #14 cap 06/08/19 Unknown Rx Allergies Allergy/AdvReac Type Severity Reaction Status Date / Time No Known Allergies Allergy Verified 03/30/19 10:32 ED Review of Systems ROS: Stated complaint: BLOOD IN URINE/HEADACHE Other details as noted in HPI Comment: All other systems reviewed and negative ED Past Medical Hx - Past Medical History Hx Hypertension: Yes Hx Arthritis: Yes Hx Headaches / Migraines: Yes Additional medical history: anxiety, skin rash, 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, Scoliosis, spinal cord injury - Social History Smoking Status: Never Smoker Substance Use Type: None - Medications Home Medications: Home Medications Medication Instructions Recorded Confirmed Last Taken Type Lisinopril [Zestril TAB] 25 mg PO QDAY #15 tab 11/30/18 Unknown Rx Lisinopril [Zestril TAB] 30 mg PO QDAY #30 tab 11/30/18 Unknown Rx Sulfamethoxazole/Trimethoprim 1 each PO BID #10 tablet 11/30/18 Unknown Rx [Bactrim DS TAB] Ketorolac [Toradol] 10 mg PO Q6H PRN #14 tablet 02/04/19 Unknown Rx Acetaminophen [Acetaminophen TAB] 1,000 mg PO Q6HR PRN #30 tablet 02/08/19 Unknown Rx Metoclopramide [Reglan] 10 mg PO Q6H PRN #30 tablet 02/08/19 Unknown Rx diphenhydrAMINE [Benadryl CAP] 25 mg PO Q6HR PRN #30 capsule 02/08/19 Unknown Rx lisinopriL [Zestril TAB] 20 mg PO QDAY #30 tablet 02/08/19 Unknown Rx Butalb/Acetaminophen/Caffeine 1 cap PO Q6HR PRN #12 cap 03/08/19 Unknown Rx [Fioricet 50-300-40 mg CAP] Sulfamethoxazole/Trimethoprim 1 each PO BID #14 tablet 03/08/19 Unknown Rx [Bactrim DS TAB] HYDROcodone/APAP 5-325 [[place] 1 each PO Q6HR PRN #10 tablet 03/30/19 Unknown Rx 5/325] Prednisone [predniSONE 10 mg 10 mg PO .TAPER #1 tab.ds.pk 03/30/19 Unknown Rx (6-Day Pack, 21 Tabs)] SUMAtriptan SUCCINATE [Imitrex] 25 mg PO BID PRN #12 tab 06/08/19 Unknown Rx cephALEXin [Keflex] 500 mg PO BID 7 Days #14 cap 06/08/19 Unknown Rx ED Physical Exam - General Limitations: No Limitations General appearance: alert, in no apparent distress - Head Head exam: Present: atraumatic, normocephalic - Eye Eye exam: Present: normal appearance - ENT ENT exam: Present: mucous membranes moist - Respiratory Respiratory exam: Present: normal lung sounds bilaterally. Absent: respiratory distress, wheezes, rales, rhonchi, stridor, chest wall tenderness, accessory muscle use, decreased breath sounds, prolonged expiratory - Cardiovascular Cardiovascular Exam: Present: regular rate, normal rhythm, normal heart sounds. Absent: systolic murmur, diastolic murmur, rubs, gallop - GI/Abdominal GI/Abdominal exam: Present: soft, normal bowel sounds. Absent: distended, tenderness, guarding, rebound, rigid - Neurological Exam Neurological exam: Present: alert, oriented X3, CN II-XII intact, normal gait, other (normal finger to nose, normal heel to robles, 5/5 strength in the BUE/BLE, sensation intact throughout, no focal neuro deficit). Absent: motor sensory deficit - Psychiatric Psychiatric exam: Present: normal affect, normal mood - Skin Skin exam: Present: warm, dry, intact ED Course Vital Signs 06/07/19 06/08/19 20:40 04:20 Temperature 98.6 F Pulse Rate 66 82 Respiratory 18 16 Rate Blood Pressure 144/70 [Right] O2 Sat by Pulse 100 99 Oximetry ED Medical Decision Making - Lab Data Lab Results 06/07/19 Range/Units 23:45 Urine Color Silvia (Yellow) Urine Turbidity Cloudy (Clear) Urine pH 7.0 (5.0-7.0) Ur Specific [place] 1.021 (1.003-1.030) Urine Protein 30 mg/dl (Negative) mg/dL Urine Glucose (UA) Neg (Negative) mg/dL Urine Ketones Neg (Negative) mg/dL Urine Blood Neg (Negative) Urine Nitrite Neg (Negative) Ur Reducing Substances Not Reportable Urine Bilirubin Neg (Negative) Urine Ictotest Not Reportable Urine Urobilinogen 4.0 (<2.0) mg/dL Ur Leukocyte Esterase Mod (Negative) Urine WBC (Auto) 44.0 H (0.0-6.0) /HPF Urine RBC (Auto) 12.0 (0.0-6.0) /HPF U Epithel Cells (Auto) 10.0 (0-13.0) /HPF Urine Bacteria (Auto) 3+ (Negative) /HPF Urine Mucus 3+ /HPF Urine HCG, Qual Negative (Negative) - Medical Decision Making Patient is a 39-year-old female presents emergency room with complaints of a migraine headache that began 3 days ago. She states the headache is located frontally. She states that she has been taking Fioricet without much relief. She has not seen a primary care physician regarding her migraines and always get seen in the emergency department for them. she states this headache feels similar to prior migraines. She denies any vision changes, numbness, weakness, fever, neck stiffness, thunderclap headache. She states that she has also had dysuria for a few days. States she has also had some mild vaginal discharge. She denies any abdominal pain, nausea, vomiting, fever, any other symptoms. She states her last mental cycle was May 15. She states she has lost medical history of migraines and hypertension. VSS. on exam: normal finger to nose, normal heel to robles, 5/5 strength in the BUE/BLE, sensation intact throughout, no focal neuro deficit. UA shows evidence of UTI. urine preg is negative. given that pt is having mild discharge, with no fever, no tachycardia, no abd pain, no n/v low concern for PID/TOA, will have pt follow up with the health department for full STD testing and evaluation, pt verbalized understanding and states she will follow up. Patient given 1 g of ceftriaxone for UTI. Patient given sumatriptan subcutaneous and her headache completely resolved. Patient given prescription for Keflex and Imitrex. advised pt to please take medication as prescribed. Increase your water intake over the next several days. Please follow up with a primary care doctor in the next 2-3 days. Please follow-up with the health department in the next 2-3 days for full STD panel. please have your partner tested and treated as well. Return to the emergency room for any new or worsening symptoms. - Differential Diagnosis UTI, vaginitis, STD, migraine, tension YOU, cluster YOU, ocular migraine Critical care attestation.: If time is entered above; I have spent that time in minutes in the direct care of this critically ill patient, excluding procedure time. ED Disposition Clinical Impression: Migraine headache Qualifiers: Migraine type: unspecified Status migrainosus presence: without status migrainosus Intractability: not intractable Qualified Code(s): G43.909 - Migraine, unspecified, not intractable, without status migrainosus UTI (urinary tract infection) Qualifiers: Urinary tract infection type: acute cystitis Hematuria presence: without hematuria Qualified Code(s): N30.00 - Acute cystitis without hematuria Disposition: TO HOME OR SELFCARE Is pt being admited?: No Does the pt Need Aspirin: No Condition: Stable Instructions: Urinary Tract Infection in Women (ED), Migraine Headache (ED) Additional Instructions: Please take medication as prescribed. Increase your water intake over the next several days. Please follow up with a primary care doctor in the next 2-3 days. Please follow-up with the health department in the next 2-3 days for full STD panel. please have your partner tested and treated as well. Return to the emergency room for any new or worsening symptoms. Prescriptions: SUMAtriptan SUCCINATE [Imitrex] 25 mg PO BID PRN #12 tab PRN Reason: headache cephALEXin [Keflex] 500 mg PO BID 7 Days #14 cap Referrals: BENNETT OHARA MD [Staff Physician] - 2-3 Days [facility] [Outside] - 2-3 Days [facility] [Outside] - 2-3 Days Forms: Work/School Release Form(ED) Time of Disposition: 03:20 Print Language: VIET[place]ESE
== END 2019-06-08 04:20 | disposition home or self-care (01) ==
LOC: ED 18:49
DX: G43.909 Migraine, unspecified, not intractable, without status migrainosus (principal); N39.0 Urinary tract infection, site not specified; I10 Essential (primary) hypertension; M19.90 Unspecified osteoarthritis, unspecified site; F41.9 Anxiety disorder, unspecified; M41.9 Scoliosis, unspecified; Z79.899 Other long term (current) drug therapy
CPT/HCPCS: 81001; 81025; 87086; 96372; 99283; J0696; J3030

== ENCOUNTER 2021-12-06 15:40 | Emergency (ER) | payer MEDICAID ==
[2021-12-06 17:14] VITALS: BP 195/104
[2021-12-07] MEDS ORDERED: diphenhydrAMINE 25 MG CAP PO ONE (01:31)
[2021-12-07] MEDS ORDERED: ACETAMINOPHEN 500 MG TAB PO ONE (01:31)
[2021-12-07] MEDS ORDERED: predniSONE 20 MG TAB PO ONE (01:31)
[2021-12-07] MEDS ORDERED: METOCLOPRAMIDE 10 MG TAB PO ONE (01:31)
--- NOTE | 2021-12-07 01:32 | Emergency Department Report ---
ED General Adult HPI - General Chief complaint: Headache Stated complaint: MIGRIANE HEADACHE X 3 WEEKS Time Seen by Provider: 12/07/21 01:30 Source: patient Mode of arrival: Ambulatory Limitations: No Limitations - History of Present Illness Initial comments: Pt is a 41-year-old female who presents with migraine Headache'to the right lateral forehead with radiation to her right x1 week intermittently. Is been no fevers no chills no suspicious contacts. Patient states history of seasonal allergies with minor exacerbations. There is been no fever no sore throat no dysphagia. Current symptoms are managed with ibuprofen and Tylenol [id number]. Those are exacerbated by activity. Location: head - Related Data Previous Rx's Medication Instructions Recorded Last Taken Type Lisinopril [Zestril TAB] 25 mg PO QDAY #15 tab 11/30/18 Unknown Rx Lisinopril [Zestril TAB] 30 mg PO QDAY #30 tab 11/30/18 Unknown Rx Sulfamethoxazole/Trimethoprim 1 each PO BID #10 tablet 11/30/18 Unknown Rx [Bactrim DS TAB] Ketorolac [Toradol] 10 mg PO Q6H PRN #14 tablet 02/04/19 Unknown Rx Acetaminophen [Acetaminophen TAB] 1,000 mg PO Q6HR PRN #30 tablet 02/08/19 Unknown Rx Metoclopramide [Reglan] 10 mg PO Q6H PRN #30 tablet 02/08/19 Unknown Rx diphenhydrAMINE [Benadryl CAP] 25 mg PO Q6HR PRN #30 capsule 02/08/19 Unknown Rx lisinopriL [Zestril TAB] 20 mg PO QDAY #30 tablet 02/08/19 Unknown Rx Butalb/Acetaminophen/Caffeine 1 cap PO Q6HR PRN #12 cap 03/08/19 Unknown Rx [Fioricet 50-300-40 mg CAP] Sulfamethoxazole/Trimethoprim 1 each PO BID #14 tablet 03/08/19 Unknown Rx [Bactrim DS TAB] HYDROcodone/APAP 5-325 [[place] 1 each PO Q6HR PRN #10 tablet 03/30/19 Unknown Rx 5/325] Prednisone [predniSONE 10 mg 10 mg PO .TAPER #1 tab.ds.pk 03/30/19 Unknown Rx (6-Day Pack, 21 Tabs)] SUMAtriptan SUCCINATE [Imitrex] 25 mg PO BID PRN #12 tab 06/08/19 Unknown Rx cephALEXin [Keflex] 500 mg PO BID 7 Days #14 cap 06/08/19 Unknown Rx Acetaminophen [Pain Relief Extra 500 mg PO Q6H PRN #60 tab 12/07/21 Unknown Rx Strength] Metoclopramide [Reglan] 10 mg PO TID PRN #30 tab 12/07/21 Unknown Rx diphenhydrAMINE [Benadryl CAP] 25 mg PO Q8HR PRN #30 capsule 12/07/21 Unknown Rx Allergies Allergy/AdvReac Type Severity Reaction Status Date / Time No Known Allergies Allergy Verified 03/30/19 10:32 ED Review of Systems ROS: Stated complaint: MIGRIANE HEADACHE X 3 WEEKS Other details as noted in HPI Constitutional: denies: chills, fever Eyes: denies: eye pain, eye discharge, vision change ENT: congestion. denies: ear pain, throat pain, hearing loss Respiratory: denies: cough, shortness of breath, wheezing Cardiovascular: denies: chest pain, palpitations Endocrine: no symptoms reported Gastrointestinal: denies: abdominal pain, nausea, vomiting, diarrhea Genitourinary: denies: urgency, dysuria, discharge Musculoskeletal: denies: back pain, joint swelling, arthralgia Skin: denies: rash, lesions Neurological: headache. 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, Scoliosis, spinal cord injury - Social History Smoking Status: Never Smoker Substance Use Type: None - Medications Home Medications: Home Medications Medication Instructions Recorded Confirmed Last Taken Type Lisinopril [Zestril TAB] 25 mg PO QDAY #15 tab 11/30/18 Unknown Rx Lisinopril [Zestril TAB] 30 mg PO QDAY #30 tab 11/30/18 Unknown Rx Sulfamethoxazole/Trimethoprim 1 each PO BID #10 tablet 11/30/18 Unknown Rx [Bactrim DS TAB] Ketorolac [Toradol] 10 mg PO Q6H PRN #14 tablet 02/04/19 Unknown Rx Acetaminophen [Acetaminophen TAB] 1,000 mg PO Q6HR PRN #30 tablet 02/08/19 Unknown Rx Metoclopramide [Reglan] 10 mg PO Q6H PRN #30 tablet 02/08/19 Unknown Rx diphenhydrAMINE [Benadryl CAP] 25 mg PO Q6HR PRN #30 capsule 02/08/19 Unknown Rx lisinopriL [Zestril TAB] 20 mg PO QDAY #30 tablet 02/08/19 Unknown Rx Butalb/Acetaminophen/Caffeine 1 cap PO Q6HR PRN #12 cap 03/08/19 Unknown Rx [Fioricet 50-300-40 mg CAP] Sulfamethoxazole/Trimethoprim 1 each PO BID #14 tablet 03/08/19 Unknown Rx [Bactrim DS TAB] HYDROcodone/APAP 5-325 [[place] 1 each PO Q6HR PRN #10 tablet 03/30/19 Unknown Rx 5/325] Prednisone [predniSONE 10 mg 10 mg PO .TAPER #1 tab.ds.pk 03/30/19 Unknown Rx (6-Day Pack, 21 Tabs)] SUMAtriptan SUCCINATE [Imitrex] 25 mg PO BID PRN #12 tab 06/08/19 Unknown Rx cephALEXin [Keflex] 500 mg PO BID 7 Days #14 cap 06/08/19 Unknown Rx Acetaminophen [Pain Relief Extra 500 mg PO Q6H PRN #60 tab 12/07/21 Unknown Rx Strength] Metoclopramide [Reglan] 10 mg PO TID PRN #30 tab 12/07/21 Unknown Rx diphenhydrAMINE [Benadryl CAP] 25 mg PO Q8HR PRN #30 capsule 12/07/21 Unknown Rx ED Physical Exam - General Limitations: No Limitations General appearance: alert, in no apparent distress - Head Head exam: Present: normocephalic - Eye Eye exam: Present: PERRL, EOMI. Absent: conjunctival injection, nystagmus Pupils: Present: normal accommodation - ENT ENT exam: Present: normal orophraynx, mucous membranes moist, TM's normal bilaterally, normal external ear exam - Neck Neck exam: Present: normal inspection, full ROM. Absent: tenderness, meningismus, lymphadenopathy, thyromegaly - Respiratory Respiratory exam: Present: normal lung sounds bilaterally. Absent: respiratory distress, wheezes, stridor, chest wall tenderness - Cardiovascular Cardiovascular Exam: Present: regular rate, normal rhythm, normal heart sounds. Absent: systolic murmur, diastolic murmur, rubs, gallop - GI/Abdominal GI/Abdominal exam: Present: soft, normal bowel sounds. Absent: distended, tenderness, guarding, rebound, rigid, bruit - Rectal Rectal exam: Present: deferred - Extremities Exam Extremities exam: Present: normal inspection, full ROM, normal capillary refill. Absent: tenderness - Back Exam Back exam: Present: normal inspection, full ROM. Absent: CVA tenderness (R), CVA tenderness (L), paraspinal tenderness, vertebral tenderness - Neurological Exam Neurological exam: Present: alert, oriented X3, CN II-XII intact, normal gait, reflexes normal. Absent: motor sensory deficit - Expanded Neurological Exam Expanded Patient oriented to: Present: person, place, time Speech: Present: fluid speech Cranial nerves: EOM's Intact: Normal, Gag Reflex: Normal, Tongue Deviation: Normal, Nystagmus: Normal, Facial Sensation: Normal, Facial Palsy with Forehead Movement: Normal, Facial Palsy without Forehead Movement: Normal Cerebellar function: Finger to Nose: Normal Upper motor neuron: Varinder Neglect: Normal Sensory exam: Upper Extremity Light Touch: Normal, Upper Extremity Pin Prick: Normal, Upper Extremity Temperature: Normal, UE 2 Point Discrimination: Normal, Lower Extremity Light Touch: Normal, Lower Extremity Pin Prick: Normal, Lower Extremity Temperature: Normal, LE 2 Point Discrimination: Normal Motor strength exam: RUE: 5, LUE: 5 DTR: bicep (R): 1+, bicep (L): 1+, ankle (R): 1+, ankle (L): 1+ Best Eye Response ([place]): (4) open spontaneously Best Motor Response ([place]): (6) obeys commands Best Verbal Response ([place]): (5) oriented Dusty Total: 15 - Psychiatric Psychiatric exam: Present: normal affect, normal mood - Skin Skin exam: Present: warm, dry, intact, normal color. Absent: rash ED Course Vital Signs 12/06/21 17:12 Temperature 98.3 F Pulse Rate 56 L Respiratory 16 Rate Blood Pressure 195/104 [Left] O2 Sat by Pulse 97 Oximetry Headache improved with medications given in ED plan DC to home with prescriptions. Having pain is 2/10 at this time. There is no nausea no vomiting fever no chills. There is no other neurodeficits. ED Medical Decision Making - Medical Decision Making Symptoms are resolved. Plan DC to home with prescriptions. Follow-up with primary care doctor in 2 to 3 days. Follow-up with neurology as scheduled. Return to emergency department should symptoms worsen. Critical care attestation.: If time is entered above; I have spent that time in minutes in the direct care of this critically ill patient, excluding procedure time. ED Disposition Clinical Impression: Cluster headache syndrome Qualifiers: Headache chronicity pattern: episodic headache Intractability: not intractable Qualified Code(s): G44.019 - Episodic cluster headache, not intractable Disposition: HOME / SELF CARE / HOMELESS Is pt being admited?: No Does the pt Need Aspirin: No Condition: Stable Instructions: Form - Headache Record, Cluster Headache Additional Instructions: Take medications as prescribed, hydrate as directed. Follow-up with your primary care doctor in 2 to 3 days. Return to emergency department should symptoms worsen. Prescriptions: diphenhydrAMINE [Benadryl CAP] 25 mg PO Q8HR PRN #30 capsule PRN Reason: Headache Acetaminophen [Pain Relief Extra Strength] 500 mg PO Q6H PRN #60 tab PRN Reason: Headache Metoclopramide [Reglan] 10 mg PO TID PRN #30 tab PRN Reason: Headache Referrals: DAHIANA GARCIA MD [Primary Care Provider] - 3-5 Days Forms: Work/School Release Form(ED) Time of Disposition: 04:30
== END 2021-12-07 02:00 | disposition home or self-care (01) ==
LOC: ED 15:40
DX: G44.009 Cluster headache syndrome, unspecified, not intractable (principal); I10 Essential (primary) hypertension; M19.90 Unspecified osteoarthritis, unspecified site; Z79.899 Other long term (current) drug therapy
CPT/HCPCS: 99281

== ENCOUNTER 2022-03-17 04:47 | Inpatient (IN) | payer MEDICAID ==
[2022-03-17 05:52] LABS: Basophils # (Auto) 0.1 K/mm3 (0.0-0.1); Eosinophils % (Auto) 0.5 % (0.0-4.3); Hematocrit 36.2 % (30.3-42.9); Lymphocytes # (Auto) 0.7 K/mm3 (1.2-5.4); Mean Corpuscular HGB Conc 33 % (30-34); Mean Corpuscular Volume 91 fl (79-97); Monocytes # (Auto) 0.4 K/mm3 (0.0-0.8); Monocytes % (Auto) 6.5 % (0.0-7.3); Red Cell Distribution Width 13.9 % (13.2-15.2)
[2022-03-17 06:05] LABS: Platelet Count 86 K/mm3 (140-440)
[2022-03-17] MEDS ORDERED: HYDROmorphone 1 MG/1 ML INJ IV ONE (06:50)
[2022-03-17] MEDS ORDERED: SODIUM CHLORIDE 0.9% 1000 ML 1,000 ML IV ONE ×2 (06:50→08:35)
[2022-03-17] MEDS ORDERED: ONDANSETRON 4 MG/2 ML INJ IV ONE (06:50)
[2022-03-17 06:51] LABS: Alanine Aminotransferase 15 units/L (7-56); Albumin 4.6 g/dL (3.9-5); Blood Urea Nitrogen 6 mg/dL (7-17); Calcium 9.5 mg/dL (8.4-10.2); Hemolysis Index 3
[2022-03-17 06:55] LABS: BUN/Creatinine Ratio 10
--- NOTE | 2022-03-17 07:00 | Emergency Department Report ---
HPI - General Chief Complaint: Abdominal Pain Time Seen by Provider: 03/17/22 06:40 - HPI HPI: Room 23 The patient is a 41-year-old female present with chief complaint of abdominal pain. Patient states for the past month she required [id number] laxatives in order to have a bowel movement. The patient states 3 days ago she had a bowel movement without using medication but afterwards the constipation restarted. Patient states she has been passing flatus. This morning the patient states her pain worsened and she then developed nausea vomiting. Patient states even with consuming liquids this morning she was unable to keep it down. Patient denies history of fever. Patient currently gives her pain score of 10/10 ED Past Medical Hx - Past Medical History Previous Medical History?: Yes Hx Hypertension: Yes Hx Arthritis: Yes Hx Headaches / Migraines: Yes Additional medical history: anxiety, skin rash, 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, Scoliosis, spinal cord injury - Surgical History Past Surgical History?: Yes Additional Surgical History: Herniorrhaphy as a child - Family History Family history: no significant - Social History Smoking Status: Never Smoker Substance Use Type: None (Denies illicit drug use), Alcohol (Occasional) - Medications Home Medications: Home Medications Medication Instructions Recorded Confirmed Last Taken Type Lisinopril [Zestril TAB] 25 mg PO QDAY #15 tab 11/30/18 Unknown Rx Lisinopril [Zestril TAB] 30 mg PO QDAY #30 tab 11/30/18 Unknown Rx Sulfamethoxazole/Trimethoprim 1 each PO BID #10 tablet 11/30/18 Unknown Rx [Bactrim DS TAB] Ketorolac [Toradol] 10 mg PO Q6H PRN #14 tablet 02/04/19 Unknown Rx Acetaminophen [Acetaminophen TAB] 1,000 mg PO Q6HR PRN #30 tablet 02/08/19 Unknown Rx Metoclopramide [Reglan] 10 mg PO Q6H PRN #30 tablet 02/08/19 Unknown Rx diphenhydrAMINE [Benadryl CAP] 25 mg PO Q6HR PRN #30 capsule 02/08/19 Unknown Rx lisinopriL [Zestril TAB] 20 mg PO QDAY #30 tablet 02/08/19 Unknown Rx Butalb/Acetaminophen/Caffeine 1 cap PO Q6HR PRN #12 cap 03/08/19 Unknown Rx [Fioricet 50-300-40 mg CAP] Sulfamethoxazole/Trimethoprim 1 each PO BID #14 tablet 03/08/19 Unknown Rx [Bactrim DS TAB] HYDROcodone/APAP 5-325 [[place] 1 each PO Q6HR PRN #10 tablet 03/30/19 Unknown Rx 5/325] Prednisone [predniSONE 10 mg 10 mg PO .TAPER #1 tab.ds.pk 03/30/19 Unknown Rx (6-Day Pack, 21 Tabs)] SUMAtriptan SUCCINATE [Imitrex] 25 mg PO BID PRN #12 tab 06/08/19 Unknown Rx cephALEXin [Keflex] 500 mg PO BID 7 Days #14 cap 06/08/19 Unknown Rx Acetaminophen [Pain Relief Extra 500 mg PO Q6H PRN #60 tab 12/07/21 Unknown Rx Strength] Metoclopramide [Reglan] 10 mg PO TID PRN #30 tab 12/07/21 Unknown Rx diphenhydrAMINE [Benadryl CAP] 25 mg PO Q8HR PRN #30 capsule 12/07/21 Unknown Rx ED Review of Systems ROS: Stated complaint: ABD PAIN Other details as noted in HPI Constitutional: denies: fever Eyes: denies: eye pain ENT: denies: throat pain Respiratory: no symptoms reported Cardiovascular: denies: chest pain Endocrine: no symptoms reported Gastrointestinal: abdominal pain, nausea, vomiting, constipation Genitourinary: denies: dysuria Musculoskeletal: denies: back pain Neurological: denies: headache Physical Exam - Physical Exam Vital Signs: Vital Signs 03/17/22 04:48 Temperature 98 F Pulse Rate 98 H Respiratory 18 Rate Blood Pressure 144/82 O2 Sat by Pulse 99 Oximetry Physical Exam: GENERAL: The patient is well-developed well-nourished female lying on stretcher appears to be in mild discomfort. [] HEENT: Normocephalic. Atraumatic. Extraocular motions are intact. Patient has moist mucous membranes. NECK: Supple. Trachea midline CHEST/LUNGS: Clear to auscultation. There is no respiratory distress noted. HEART/CARDIOVASCULAR: Regular. There is no tachycardia. There is no gallop rub or murmur. ABDOMEN: Abdomen is soft, with periumbilical tenderness to palpation. Patient has normal bowel sounds. There is no abdominal distention. SKIN: There is no rash. There is no edema. There is no diaphoresis. NEURO: The patient is awake, alert, and oriented. The patient is cooperative. The patient has no focal neurologic deficits. The patient has normal speech. GCS 15 MUSCULOSKELETAL: There is no evidence of acute injury. ED Course Vital Signs 03/17/22 04:48 Temperature 98 F Pulse Rate 98 H Respiratory 18 Rate Blood Pressure 144/82 O2 Sat by Pulse 99 Oximetry - Consultations Consultation #1: 03/17/22 08:27 Surgery paged ED Medical Decision Making - Lab Data Result diagrams: 03/17/22 05:42 03/17/22 05:42 Laboratory Tests 03/17/22 03/17/22 03/17/22 05:42 05:42 05:42 WBC 6.7 RBC 4.00 Hgb 12.0 Hct 36.2 MCV 91 MCH 30 MCHC 33 RDW 13.9 Plt Count 86 L Lymph % (Auto) 11.0 L Mccormick % (Auto) 6.5 Eos % (Auto) 0.5 Baso % (Auto) 2.0 H Lymph # (Auto) 0.7 L Mccormick # (Auto) 0.4 Eos # (Auto) 0.0 Baso # (Auto) 0.1 Seg Neutrophils % 80.0 H Seg Neutrophils # 5.4 Sodium 137 Potassium 4.0 Chloride 101.5 Carbon Dioxide 24 Anion Gap 16 BUN 6 L Creatinine 0.6 Estimated GFR > 60 BUN/Creatinine Ratio 10 Glucose 117 H Calcium 9.5 Total Bilirubin 0.60 AST 14 ALT 15 Alkaline Phosphatase 44 Total Protein 7.5 Albumin 4.6 Albumin/Globulin Ratio 1.6 Lipase HCG, Qual Negative 03/17/22 06:54 WBC RBC Hgb Hct MCV MCH MCHC RDW Plt Count Lymph % (Auto) Mccormick % (Auto) Eos % (Auto) Baso % (Auto) Lymph # (Auto) Mccormick # (Auto) Eos # (Auto) Baso # (Auto) Seg Neutrophils % Seg Neutrophils # Sodium Potassium Chloride Carbon Dioxide Anion Gap BUN Creatinine Estimated GFR BUN/Creatinine Ratio Glucose Calcium Total Bilirubin AST ALT Alkaline Phosphatase Total Protein Albumin Albumin/Globulin Ratio Lipase 20 HCG, Qual - Radiology Data Radiology results: report reviewed (CT abdomen pelvis), image reviewed (CT abdomen pelvis) [facility] [address] [place] [address] Cat Scan Report Signed Patient: SID NAVA MR#: [id number] : 1980 Acct:[id number] Age/Sex: 41 / F ADM Date: 03/17/22 Loc: ED Attending Dr: Ordering Physician: HAY STARKS MD Date of Service: 03/17/22 Procedure(s): CT abdomen pelvis wo con Accession Number(s): [id number] cc: HAY STARKS MD CT ABDOMEN AND PELVIS WITHOUT CONTRAST HISTORY: Rule out SBO. COMPARISON: None. TECHNIQUE: CT images of the abdomen and pelvis were obtained without administration of intravenous contrast. All CT scans at this location are performed using CT dose reduction for ALARA by means of automated exposure control. FINDINGS: Lungs/bones: Lung bases are clear. There are degenerative changes in the spine with no acute osseous abnormality. Abdomen/pelvis: There is borderline hepatic steatosis and hepatomegaly with no acute abnormality. The gallbladder, biliary tree, spleen, pancreas, adrenals, left kidney, and proximal GI tract appear unremarkable. There is a punctate nonobstructive calyceal stone in the midpole the right kidney. Urinary bladder and uterus appear unremarkable. There is a simple right ovarian cyst measuring 2.8 cm on image 127 of series 2. No pelvic free fluid or acute colonic abnormality identified. The appendix is mildly distended with mild surrounding inflammation. No free air or abscess formation identified. IMPRESSION: 1. Acute uncomplicated appendicitis. Signer Name: Nabil Oakes MD Signed: 03/17/2022 7:50 AM Workstation Name: [id number] Transcribed By: JW Dictated By: Nabil Oakes MD Electronically Authenticated By: Nabil Oakes MD Signed Date/Time: 03/17/22749 DD/ 0746 - Differential Diagnosis Small bowel obstruction, gastritis, pancreatitis, volvulus Critical care attestation.: If time is entered above; I have spent that time in minutes in the direct care of this critically ill patient, excluding procedure time. ED Disposition Clinical Impression: Acute appendicitis, Acute abdominal pain Disposition: ADMITTED INPATIENT Is pt being admited?: Yes Does the pt Need Aspirin: No Condition: Stable Instructions: Abdominal Pain (ED) Referrals: BENNETT OHARA MD [Primary Care Provider] - 3-5 Days Time of Disposition: 08:36 (Care transferred to hospitalist Dr Nails (discussed with Dr. Verduzco))
--- NOTE | 2022-03-17 07:55 | Cat Scan Report ---
CT ABDOMEN AND PELVIS WITHOUT CONTRAST HISTORY: Rule out SBO. COMPARISON: None. TECHNIQUE: CT images of the abdomen and pelvis were obtained without administration of intravenous co ntrast. All CT scans at this location are performed using CT dose reduction for ALARA by means of au tomated exposure control. FINDINGS: Lungs/bones: Lung bases are clear. There are degenerative changes in the spine with no acute osseous abnormality. Abdomen/pelvis: There is borderline hepatic steatosis and hepatomegaly with no acute abnormality. Th e gallbladder, biliary tree, spleen, pancreas, adrenals, left kidney, and proximal GI tract appear un remarkable. There is a punctate nonobstructive calyceal stone in the midpole the right kidney. Urinary bladder and uterus appear unremarkable. There is a simple right ovarian cyst measuring 2.8 cm on image 127 of series 2. No pelvic free fluid or acute colonic abnormality identified. The appendix is mildly distended with mild surrounding inflammation. No free air or abscess formation identified. IMPRESSION: 1. Acute uncomplicated appendicitis. Signer Name: Nabil Oakes MD Signed: 03/17/2022 7:50 AM Workstation Name: [id number]
[2022-03-17] MEDS ORDERED: PIPERACIL/TAZOBACTA 4.5/NS 100 4.5 GM/100 ML VIAL IV ONE ×2 (08:35→10:30)
[2022-03-17] MEDS ORDERED: MORPHINE 2 MG/1 ML INJ IV PRN (08:37)
[2022-03-17] MEDS ORDERED: ONDANSETRON 4 MG/2 ML INJ IV PRN ×2 (08:37→13:11)
[2022-03-17] MEDS ORDERED: ACETAMINOPHEN 325 MG TAB PO PRN (08:37)
[2022-03-17 08:43] LABS: Bilirubin,Urine NEG (Negative); Blood,Urine NEG (Negative); Color,Urine Yellow (Yellow)
[2022-03-17] MEDS ORDERED: HYDROmorphone 0.5 MG/0.5 ML INJ IV PRN ×3 (08:46→13:11)
[2022-03-17 08:47] LABS: Amorphous Crystals,Urine 2+; Bacteria,Urine 4+ /HPF (Negative); Mucus,Urine 1+ /HPF
[2022-03-17] MEDS: DEXTROSE 5% IN WATER 1,000 ML IV SCH ×2 (09:37→15:38)
--- NOTE | 2022-03-17 10:51 | Consultation ---
History of Present Illness Consult date: 03/17/22 Reason for consult: abdominal pain - History of present illness History of present illness: 41-year-old female presented to the emergency room with a several day onset of worsening periumbilical right lower quadrant pain. Patient says he is been having issues with constipation and generalized abdominal pain for about 3 weeks. The pain over the last couple days has gotten significantly worse with nausea vomiting which prompted her to come to the emergency room. CT scan showed uncomplicated appendicitis. She denies ever having symptoms before. Past History Past Medical History: hypertension Past Surgical History: Other (Hernia surgery as an infant) Social history: no significant social history Family history: no significant family history Medications and Allergies Allergies Allergy/AdvReac Type Severity Reaction Status Date / Time No Known Allergies Allergy Verified 03/30/19 10:32 Home Medications Medication Instructions Recorded Confirmed Last Taken Type Lisinopril [Zestril TAB] 25 mg PO QDAY #15 tab 11/30/18 Unknown Rx Lisinopril [Zestril TAB] 30 mg PO QDAY #30 tab 11/30/18 Unknown Rx Sulfamethoxazole/Trimethoprim 1 each PO BID #10 tablet 11/30/18 Unknown Rx [Bactrim DS TAB] Ketorolac [Toradol] 10 mg PO Q6H PRN #14 tablet 02/04/19 Unknown Rx Acetaminophen [Acetaminophen TAB] 1,000 mg PO Q6HR PRN #30 tablet 02/08/19 Unknown Rx Metoclopramide [Reglan] 10 mg PO Q6H PRN #30 tablet 02/08/19 Unknown Rx diphenhydrAMINE [Benadryl CAP] 25 mg PO Q6HR PRN #30 capsule 02/08/19 Unknown R x lisinopriL [Zestril TAB] 20 mg PO QDAY #30 tablet 02/08/19 Unknown Rx Butalb/Acetaminophen/Caffeine 1 cap PO Q6HR PRN #12 cap 03/08/19 Unknown Rx [Fioricet 50-300-40 mg CAP] Sulfamethoxazole/Trimethoprim 1 each PO BID #14 tablet 03/08/19 Unknown Rx [Bactrim DS TAB] HYDROcodone/APAP 5-325 [[place] 1 each PO Q6HR PRN #10 tablet 03/30/19 Unknown Rx 5/325] Prednisone [predniSONE 10 mg 10 mg PO .TAPER #1 tab.ds.pk 03/30/19 Unknown Rx (6-Day Pack, 21 Tabs)] SUMAtriptan SUCCINATE [Imitrex] 25 mg PO BID PRN #12 tab 06/08/19 Unknown Rx cephALEXin [Keflex] 500 mg PO BID 7 Days #14 cap 06/08/19 Unknown Rx Acetaminophen [Pain Relief Extra 500 mg PO Q6H PRN #60 tab 12/07/21 Unknown Rx Strength] Metoclopramide [Reglan] 10 mg PO TID PRN #30 tab 12/07/21 Unknown Rx diphenhydrAMINE [Benadryl CAP] 25 mg PO Q8HR PRN #30 capsule 12/07/21 Unknown Rx Active Meds: Active Medications Acetaminophen (Acetaminophen 325 Mg Tab) 650 mg PO Q4H PRN PRN Reason: Pain MILD(1-3)/Fever >100.5/YOU Hydromorphone HCl (Hydromorphone 1 Mg/1 Ml Inj) 1 mg IV Q4H PRN PRN Reason: Pain , Severe (7-10) Dextrose (D5w) 1,000 mls @ 125 mls/hr IV DIRECT [facility] Last Admin: 03/17/22 09:37 Dose: 125 mls/hr Piperacillin Sod/Tazobactam Sod (Zosyn/Ns 4.5gm/100ml) 4.5 gm in 100 mls @ 200 mls/hr IV ONCE ONE; Protocol Stop: 03/17/22 10:59 Morphine Sulfate (Morphine 2 Mg/1 Ml Inj) 2 mg IV Q4H PRN PRN Reason: Pain, Moderate (4-6) Ondansetron HCl (Ondansetron 4 Mg/2 Ml Inj) 4 mg IV Q8H PRN PRN Reason: Nausea And Vomiting Sodium Chloride (Sodium Chloride 0.9% 10 Ml Flush Syringe) 10 ml IV BID [facility] Last Admin: 03/17/22 10:25 Dose: 10 ml Sodium Chloride (Sodium Chloride 0.9% 10 Ml Flush Syringe) 10 ml IV PRN PRN PRN Reason: LINE FLUSH Review of Systems All systems: negative - Constitutional poor appetite - Gastrointestinal abdominal pain, nausea, vomiting, diarrhea, constipation Exam Vital Signs Temp Pulse Resp BP Pulse Ox 98 F 98 H 18 144/82 99 03/17/22 04:48 03/17/22 04:48 03/17/22 04:48 03/17/22 04:48 03/17/22 04:48 - General physical appearance Positive: well developed, no distress, moderate pain, obese - Eyes Positive: PERRL - ENT Positive: no hearing loss - Respiratory Positive: normal expansion, normal respiratory effort - Cardiovascular Heart Sounds: Present: S1 & S2 - Extremities Extremities: no ischemia - Abdomen Abdomen: Present: soft, other (Periumbilical tenderness to palpation. Well- healed periumbilical scar). Absent: distended, guarding, rigid - Rectum Rectum: normal spincter tone - Neurologic Neurologic: alert and oriented to time, place and person, CN II-XII intact Results - Labs 03/17/22 05:42 03/17/22 05:42 Abnormal lab results 03/17/22 03/17/22 03/17/22 Range/Units 05:17 05:42 05:42 Plt Count 86 L (140-440) K/mm3 Lymph % (Auto) 11.0 L (13.4-35.0) % Baso % (Auto) 2.0 H (0.0-1.8) % Lymph # (Auto) 0.7 L (1.2-5.4) K/mm3 Seg Neutrophils % 80.0 H (40.0-70.0) % BUN 6 L (7-17) mg/dL Glucose 117 H (65-100) mg/dL Urine pH 9.0 H (5.0-7.0) U Epithel Cells (Auto) 25.0 H (0-13.0) /HPF Diabetes panel 03/17/22 Range/Units 05:42 Sodium 137 (137-145) mmol/L Potassium 4.0 (3.6-5.0) mmol/L Chloride 101.5 (98-107) mmol/L Carbon Dioxide 24 (22-30) mmol/L BUN 6 L (7-17) mg/dL Creatinine 0.6 (0.6-1.2) mg/dL Glucose 117 H (65-100) mg/dL Calcium 9.5 (8.4-10.2) mg/dL AST 14 (5-40) units/L ALT 15 (7-56) units/L Alkaline Phosphatase 44 (35-129) units/L Total Protein 7.5 (6.3-8.2) g/dL Albumin 4.6 (3.9-5) g/dL Calcium panel 03/17/22 Range/Units 05:42 Calcium 9.5 (8.4-10.2) mg/dL Albumin 4.6 (3.9-5) g/dL Pituitary panel 03/17/22 Range/Units 05:42 Sodium 137 (137-145) mmol/L Potassium 4.0 (3.6-5.0) mmol/L Chloride 101.5 (98-107) mmol/L Carbon Dioxide 24 (22-30) mmol/L BUN 6 L (7-17) mg/dL Creatinine 0.6 (0.6-1.2) mg/dL Glucose 117 H (65-100) mg/dL Calcium 9.5 (8.4-10.2) mg/dL Adrenal panel 03/17/22 Range/Units 05:42 Sodium 137 (137-145) mmol/L Potassium 4.0 (3.6-5.0) mmol/L Chloride 101.5 (98-107) mmol/L Carbon Dioxide 24 (22-30) mmol/L BUN 6 L (7-17) mg/dL Creatinine 0.6 (0.6-1.2) mg/dL Glucose 117 H (65-100) mg/dL Calcium 9.5 (8.4-10.2) mg/dL Total Bilirubin 0.60 (0.1-1.2) mg/dL AST 14 (5-40) units/L ALT 15 (7-56) units/L Alkaline Phosphatase 44 (35-129) units/L Total Protein 7.5 (6.3-8.2) g/dL Albumin 4.6 (3.9-5) g/dL - Imaging CT scan - abdomen: report reviewed, image reviewed CT scan - pelvis: report reviewed, image reviewed Assessment and Plan 41-year-old female with history and work-up consistent with acute appendicitis. Patient is afebrile and stable. Discussed with patient pathology and both surgical and nonsurgical options. Patient is agreeable to laparoscopic appendectomy. Patient signed informed consent and surgeries planned for today. The patient does well can be discharged home fluid the next 24 hours.
--- NOTE | 2022-03-17 11:03 | Anesthesia Day of Surgery ---
Anesthesia Day of Surgery - Day of Surgery Patient Examined: Yes Patient H&P Reviewed: Yes Patient is NPO: Yes
--- NOTE | 2022-03-17 11:03 | Anesthesia Consultation ---
Anesthesia Consult and Med Hx Date of service: 03/17/22 - Airway Anesthetic Teeth Evaluation: Poor (multiple missing, broken teeth) ROM Head & Neck: Adequate Mental/Hyoid Distance: Adequate Mallampati Class: Class III Intubation Access Assessment: Possibly Difficult - Pre-Operative Health Status ASA Pre-Surgery Classification: ASA3 Proposed Anesthetic Plan: General - Pulmonary Hx Respiratory Symptoms: Yes (h/o bronchitis) - Cardiovascular System Hx Hypertension: Yes - Other Systems Hx Obesity: Yes (morbid obesity)
[2022-03-17] MEDS ORDERED: propofoL 200 MG/20 ML VIAL IV ONE (11:20)
[2022-03-17] MEDS ORDERED: HYDROmorphone 1 MG/1 ML INJ ONE (11:20)
[2022-03-17] MEDS ORDERED: ROCURONIUM 50 MG/5 ML INJ IV ONE (11:22)
[2022-03-17] MEDS ORDERED: LIDOCAINE MPF (2%) 20 MG/1 ML VIAL 5 ML ONE (11:22)
[2022-03-17] MEDS ORDERED: LIDOCAINE 1%/EPINEPHRINE 1:100,000 VIAL (20 ML) INFILTRATI ONE ×2 (11:22→12:24)
[2022-03-17] MEDS ORDERED: BUPIVACAINE/PF (0.5%) 5 MG/1 ML 30 ML VIAL INFILTRATI ONE ×2 (11:22→12:23)
[2022-03-17] MEDS ORDERED: WATER FOR IRRIG STERILE 1,500 ML BOTTLE IR ONE (12:24)
[2022-03-17] MEDS ORDERED: ONDANSETRON 4 MG/2 ML INJ ONE (12:43)
[2022-03-17] MEDS ORDERED: dexAMETHasone 20 MG/5 ML VIAL ONE (12:43)
[2022-03-17] MEDS ORDERED: NEOSTIGMINE 10MG/10 ML INJ MDV ONE (12:43)
[2022-03-17] MEDS ORDERED: GLYCOPYRROLATE 0.4 MG/2 ML INJ ONE (12:43)
[2022-03-17] MEDS ORDERED: KETOROLAC 30 MG/1 ML INJ ONE (12:44)
--- NOTE | 2022-03-17 13:22 | Post Anesthesia Evaluation ---
- Post Anesthesia Evaluation Patient Participated: Yes Airway Patent: Yes Stable Respiratory Function: Yes Nausea/Vomiting: No Temp > 96.8F: Yes Pain Manageable: Yes Adequeate Hydration: Yes Anesthesia Complications: No Block Receding Appropriately: Not Applicable Patient on Ventilator: No
--- NOTE | 2022-03-17 13:35 | Operative Report ---
Operative Report Operative Report: Date of Service: 03/17/2022 Primary Surgeon: Melissa Mitchell MD Procedure: 1.Laparoscopic Appendectomy, 2. lysis of adhesions Anesthesia: GETA Pre-Operative Diagnosis: acute appendicitis Post-Operative Diagnosis: Same Indications for Procedure: 41-year-old female with a history of 4-day increasing abdominal pain. CT scan showed acute appendicitis. Patient signed informed consent. Description of Procedure(s): The patient was brought to the operating room and underwent general anesthesia after lower extremity SCD were placed. A mae catheter was inserted under sterile conditions and the left arm was tucked gently at their side. The abdomen was prepped and draped in the standard fashion. IV antibiotics were given and a time out was performed. Using a veress needle via a stab incision in the left subcostal area. I noticed that there was an unusual high pressure on the insufflator machine after multiple attempts to insufflate in that area. I then decided to use a 5 mm Optiview scope to into the abdomen on the left side at the level of the umbilicus. Once inside, the abdomen was insuflated to a pressure of 15mmHg. There was no gross injury noted to any intra-abdominal structures. There was noted to be a significant amount of omentum and transverse colon adhesed to the left upper quadrant area. For concerned that the Veress needle may have gone into the colon I placed another 5 mm trocar on the left side and took a LigaSure device to take down all the adhes ions of the omentum and colon intra-abdominal wall. The colon and omentum was inspected very carefully there was no defect or injury appreciated. After which the remaining working trocars were placed under direct visualization. A 12 mm trocar was exchanged for the 5 mm in left mid abdomen, and a 5 mm trocar was inserted in the suprapubic area. The patient was placed in slight Trendelenburg position and tilted towards her left side. The cecum was identified and mobilized, as well as the terminal ileum. There was no gross purulent fluid. The appendix was noted to be retrocecal. The mesoappendix was transected with the LigaSure. The appendix was then taken at its base with a white load on a laparoscopic stapler. The staple line was inspected and found to be hemostatically sound and secure. The appendix was placed in Endo Catch bag. It was then retrieved via the 12 mm trocar. The fascia was then closed using a #1 PDS and a suture passer device. Trocars removed under direct visualization. The insufflation was then terminated. The skin incisions were closed using 4-0 Monocryl sutures. All the wounds dressed with dermabond. The patient tolerated the procedure well, was extubated and taken to the recovery room in satisfactory condition. Specimen: appendix Complications: none immediate EBl: minimal Findings: Acute appendicitis is mostly inflammation at the tip of the appendix
--- NOTE | 2022-03-17 14:01 | History and Physical Report ---
History of Present Illness Date of examination: 03/17/22 Date of admission: 03/17/22 08:38 Chief complaint: Appendicitis History of present illness: Patient is a 41-year-old female past medical history of hypertension morbid obesity who presented to the ED after worsening periumbilical and right lower quadrant tenderness. Patient states that she has been having issues with constipation and generalized abdominal pain for approximately 3 weeks. She also described that the pain over the previous couple of days has gotten significantly worse, which is what prompted her to present to the ED. In the ED, patient was found to be hemodynamically stable and labs were unremarkable. The patient underwent CT abdomen and pelvis that revealed uncomplicated acute appendicitis. Patient was admitted for surgical intervention. Past History Past Medical History: hypertension, other (#Obesity#Weight loss co unseling#Exercise counseling- BMI - Counseled patient on the importance of weight loss, incorporating exercise, and dietary changes (lean meats, fresh fruits and vegetables, and water intake). Patient expresses understanding. - Time: +15 min) Past Surgical History: Other (Hernia surgery as an ) Social history: no significant social history, full code Family history: no significant family history Medications and Allergies Allergies Allergy/AdvReac Type Severity Reaction Status Date / Time No Known Allergies Allergy Verified 03/30/19 10:32 Home Medications Medication Instructions Recorded Confirmed Last Taken Type Lisinopril [Zestril TAB] 25 mg PO QDAY #15 tab 11/30/18 Unknown Rx Lisinopril [Zestril TAB] 30 mg PO QDAY #30 tab 11/30/18 Unknown Rx Sulfamethoxazole/Trimethoprim 1 each PO BID #10 tablet 11/30/18 Unknown Rx [Bactrim DS TAB] Ketorolac [Toradol] 10 mg PO Q6H PRN #14 tablet 02/04/19 Unknown Rx Acetaminophen [Acetaminophen TAB] 1,000 mg PO Q6HR PRN #30 tablet 02/08/19 Unknown Rx Metoclopramide [Reglan] 10 mg PO Q6H PRN #30 tablet 02/08/19 Unknown Rx diphenhydrAMINE [Benadryl CAP] 25 mg PO Q6HR PRN #30 capsule 02/08/19 Unknown Rx lisinopriL [Zestril TAB] 20 mg PO QDAY #30 tablet 02/08/19 Unknown Rx Butalb/Acetaminophen/Caffeine 1 cap PO Q6HR PRN #12 cap 03/08/19 Unknown Rx [Fioricet 50-300-40 mg CAP] Sulfamethoxazole/Trimethoprim 1 each PO BID #14 tablet 03/08/19 Unknown Rx [Bactrim DS TAB] HYDROcodone/APAP 5-325 [Dayhoit 1 each PO Q6HR PRN #10 tablet 03/30/19 Unknown Rx 5/325] Prednisone [predniSONE 10 mg 10 mg PO .TAPER #1 tab.ds.pk 03/30/19 Unknown Rx (6-Day Pack, 21 Tabs)] SUMAtriptan SUCCINATE [Imitrex] 25 mg PO BID PRN #12 tab 06/08/19 Unknown Rx cephALEXin [Keflex] 500 mg PO BID 7 Days #14 cap 06/08/19 Unknown Rx Acetaminophen [Pain Relief Extra 500 mg PO Q6H PRN #60 tab 12/07/21 Unknown Rx Strength] Metoclopramide [Reglan] 10 mg PO TID PRN #30 tab 12/07/21 Unknown Rx diphenhydrAMINE [Benadryl CAP] 25 mg PO Q8HR PRN #30 capsule 12/07/21 Unknown Rx Active Meds: Active Medications Acetaminophen (Acetaminophen 325 Mg Tab) 650 mg PO Q4H PRN PRN Reason: Pain MILD(1-3)/Fever >100.5/YOU Hydromorphone HCl (Hydromorphone 1 Mg/1 Ml Inj) 1 mg IV Q4H PRN PRN Reason: Pain , Severe (7-10) Hydromorphone HCl (Hydromorphone 0.5 Mg/0.5 Ml Inj) 0.25 mg IV Q10MIN PRN PRN Reason: Pain, Moderate (4-6) Hydromorphone HCl (Hydromorphone 0.5 Mg/0.5 Ml Inj) 0.5 mg IV Q10MIN PRN PRN Reason: Pain , Severe (7-10) Dextrose (D5w) 1,000 mls @ 125 mls/hr IV DIRECT DALIA Last Admin: 03/17/22 09:37 Dose: 125 mls/hr Morphine Sulfate (Morphine 2 Mg/1 Ml Inj) 2 mg IV Q4H PRN PRN Reason: Pain, Moderate (4-6) Ondansetron HCl (Ondansetron 4 Mg/2 Ml Inj) 4 mg IV Q8H PRN PRN Reason: Nausea And Vomiting Ondansetron HCl (Ondansetron 4 Mg/2 Ml Inj) 4 mg IV ONCE PRN PRN Reason: Nausea And Vomiting Sodium Chloride (Sodium Chloride 0.9% 10 Ml Flush Syringe) 10 ml IV BID DALIA Last Admin: 03/17/22 10:25 Dose: 10 ml Sodium Chloride (Sodium Chloride 0.9% 10 Ml Flush Syringe) 10 ml IV PRN PRN PRN Reason: LINE FLUSH Review of Systems All systems: negative Gastrointestinal: abdominal pain, nausea, vomiting, constipation Exam - Constitutional Vitals: Temp Pulse Resp BP Pulse Ox 98.8 F 79 14 132/79 100 03/17/22 13:08 03/17/22 13:45 03/17/22 13:45 03/17/22 13:45 03/17/22 13:45 General appearance: Present: no acute distress, well-nourished, obese - EENT Eyes: Present: PERRL, EOM intact ENT: hearing intact, clear oral mucosa, dentition normal - Neck Neck: Present: supple, normal ROM - Respiratory Respiratory effort: normal Respiratory: bilateral: CTA - Cardiovascular Rhythm: regular Heart Sounds: Present: S1 & S2 - Extremities Extremities: no ischemia, pulses intact, pulses symmetrical, No edema, normal temperature, normal color Peripheral Pulses: within normal limits - Abdominal General gastrointestinal: Present: soft, tender, non-distended, normal bowel sounds Localized gastrointestinal: tender: RLQ, epigastric periumbilical Female genitourinary: Present: deferred - Rectal Rectal Exam: deferred - Integumentary Integumentary: Present: clear, warm, dry - Musculoskeletal Musculoskeletal: strength equal bilaterally - Psychiatric Psychiatric: appropriate mood/affect, intact judgment & insight, memory intact, cooperative - Neurologic Neurologic: CNII-XII intact, moves all extremities - Allied Health Allied health notes reviewed: nursing Results - Labs CBC & Chem 7: 03/17/22 05:42 03/17/22 05:42 Labs: Laboratory Last Values WBC 6.7 K/mm3 (4.5-11.0) 03/17/22 05:42 RBC 4.00 M/mm3 (3.65-5.03) 03/17/22 05:42 Hgb 12.0 gm/dl (10.1-14.3) 03/17/22 05:42 Hct 36.2 % (30.3-42.9) 03/17/22 05:42 MCV 91 fl (79-97) 03/17/22 05:42 MCH 30 pg (28-32) 03/17/22 05:42 MCHC 33 % (30-34) 03/17/22 05:42 RDW 13.9 % (13.2-15.2) 03/17/22 05:42 Plt Count 86 K/mm3 (140-440) L 03/17/22 05:42 Lymph % (Auto) 11.0 % (13.4-35.0) L 03/17/22 05:42 [place] % (Auto) 6.5 % (0.0-7.3) 03/17/22 05:42 Eos % (Auto) 0.5 % (0.0-4.3) 03/17/22 05:42 Baso % (Auto) 2.0 % (0.0-1.8) H 03/17/22 05:42 Lymph # (Auto) 0.7 K/mm3 (1.2-5.4) L 03/17/22 05:42 [place] # (Auto) 0.4 K/mm3 (0.0-0.8) 03/17/22 05:42 Eos # (Auto) 0.0 K/mm3 (0.0-0.4) 03/17/22 05:42 Baso # (Auto) 0.1 K/mm3 (0.0-0.1) 03/17/22 05:42 Seg Neutrophils % 80.0 % (40.0-70.0) H 03/17/22 05:42 Seg Neutrophils # 5.4 K/mm3 (1.8-7.7) 03/17/22 05:42 Sodium 137 mmol/L (137-145) 03/17/22 05:42 Potassium 4.0 mmol/L (3.6-5.0) 03/17/22 05:42 Chloride 101.5 mmol/L (98-107) 03/17/22 05:42 Carbon Dioxide 24 mmol/L (22-30) 03/17/22 05:42 Anion Gap 16 mmol/L 03/17/22 05:42 BUN 6 mg/dL (7-17) L 03/17/22 05:42 Creatinine 0.6 mg/dL (0.6-1.2) 03/17/22 05:42 Estimated GFR > 60 ml/min 03/17/22 05:42 BUN/Creatinine Ratio 10 % 03/17/22 05:42 Glucose 117 mg/dL (65-100) H 03/17/22 05:42 Calcium 9.5 mg/dL (8.4-10.2) 03/17/22 05:42 Total Bilirubin 0.60 mg/dL (0.1-1.2) 03/17/22 05:42 AST 14 units/L (5-40) 03/17/22 05:42 ALT 15 units/L (7-56) 03/17/22 05:42 Alkaline Phosphatase 44 units/L (35-129) 03/17/22 05:42 Total Protein 7.5 g/dL (6.3-8.2) 03/17/22 05:42 Albumin 4.6 g/dL (3.9-5) 03/17/22 05:42 Albumin/Globulin Ratio 1.6 % 03/17/22 05:42 Lipase 20 units/L (13-60) 03/17/22 06:54 HCG, Qual Negative (Negative) 03/17/22 05:42 Urine Color Yellow (Yellow) 03/17/22 05:17 Urine Turbidity Cloudy (Clear) 03/17/22 05:17 Urine pH 9.0 (5.0-7.0) H 03/17/22 05:17 Ur Specific [place] 1.017 (1.003-1.030) 03/17/22 05:17 Urine Protein 30 mg/dl mg/dL (Negative) 03/17/22 05:17 Urine Glucose (UA) Neg mg/dL (Negative) 03/17/22 05:17 Urine Ketones Tr mg/dL (Negative) 03/17/22 05:17 Urine Blood Neg (Negative) 03/17/22 05:17 Urine Nitrite Neg (Negative) 03/17/22 05:17 Urine Bilirubin Neg (Negative) 03/17/22 05:17 Urine Urobilinogen 2.0 mg/dL (<2.0) 03/17/22 05:17 Ur Leukocyte Esterase Neg (Negative) 03/17/22 05:17 Urine WBC (Auto) 4.0 /HPF (0.0-6.0) 03/17/22 05:17 Urine RBC (Auto) 2.0 /HPF (0.0-6.0) 03/17/22 05:17 U Epithel Cells (Auto) 25.0 /HPF (0-13.0) H 03/17/22 05:17 Urine Bacteria (Auto) 4+ /HPF (Negative) 03/17/22 05:17 Amorphous Crystals 2+ 03/17/22 05:17 Urine Mucus 1+ /HPF 03/17/22 05:17 Assessment and Plan Assessment and plan: Patient is a 41-year-old female past medical history of hypertension morbid obesity who presented to the ED after worsening periumbilical and right lower quadrant tenderness. Patient states that she has been having issues with constipation and generalized abdominal pain for approximately 3 weeks. She also described that the pain over the previous couple of days has gotten significantly worse, which is what prompted her to present to the ED. In the ED, patient was found to be hemodynamically stable and labs were unremarkable. The patient underwent CT abdomen and pelvis that revealed uncomplicated acute appendicitis. Patient was admitted for surgical intervention. #Acute uncomplicated appendicitis Visualized on CT abdomen and pelvis (03/17/2022) General surgery consulted; david méndez. Patient underwent laparoscopic appendectomy on 03/17/2022 and tolerated the procedure well. Initiating clear liquid diet. Continue analgesics as needed. Continue to monitor. #Hypertension - home medications: Lisinopril 20 mg daily - current medications: Currently holding as the patient is normotensive - SBP goal <160 and DBP goal <90 while inpatient - continue to monitor #Morbid obesity #Weight loss counseling #Exercise counseling - BMI 59.9 - Counseled patient on the importance of weight loss, incorporating exercise, and dietary changes (lean meats, fresh fruits and vegetables, and water intake). Patient expresses understanding. - Time: +15 min #Advanced care planning -Disease education conducted, care plan discussed, diagnoses discussed, prognosis discussed, and patient acknowledges understanding with care plan -Time: +30 min Advance Directives: No VTE prophylaxis?: Mechanical Plan of care discussed with patient/family: Yes
[2022-03-17] MEDS ORDERED: oxyCODONE /ACETAMINOPHEN 5-325MG TAB PO PRN (15:15)
[2022-03-17] MEDS: HYDROmorphone 1 MG/1 ML INJ IV PRN ×2 (15:43→20:25)
[2022-03-17] MEDS: KETOROLAC 30 MG/1 ML INJ IV SCH (18:46)
[2022-03-18] MEDS: KETOROLAC 30 MG/1 ML INJ IV SCH (02:24)
[2022-03-18] MEDS ORDERED: diphenhydrAMINE 25 MG CAP PO ONE (04:10)
[2022-03-18 06:23] LABS: Basophils % (Auto) 0.1 % (0.0-1.8); Hemoglobin 11.7 gm/dl (10.1-14.3); Lymphocytes # (Auto) 0.5 K/mm3 (1.2-5.4); Lymphocytes % (Auto) 7.9 % (13.4-35.0); Mean Corpuscular HGB Conc 34 % (30-34); Mean Corpuscular Volume 90 fl (79-97); Monocytes # (Auto) 0.6 K/mm3 (0.0-0.8); Monocytes % (Auto) 9.5 % (0.0-7.3); Red Blood Count 3.79 M/mm3 (3.65-5.03); Red Cell Distribution Width 14.2 % (13.2-15.2)
[2022-03-18 06:24] LABS: Platelet Count 85 K/mm3 (140-440)
[2022-03-18 06:32] LABS: INR 1.03 (0.87-1.13)
[2022-03-18 06:38] LABS: Blood Urea Nitrogen 6 mg/dL (7-17); Calcium 9.4 mg/dL (8.4-10.2); Hemolysis Index 1
[2022-03-18 06:40] LABS: BUN/Creatinine Ratio 12
[2022-03-18 12:44] VITALS: BP 130/75
--- NOTE | 2022-03-18 12:57 | Discharge Summary ---
Providers - Providers Date of Admission: 03/17/22 08:38 Date of discharge: 03/18/22 Attending physician: DARLENE MOSQUERA MD 03/17/22 08:35 Consult to Physician [CONS] Stat Comment: Consulting Provider: JACQUIE AMBROCIO Physician Instructions: Reason For Exam: Acute appendicitis Primary care physician: BENNETT OHARA Hospitalization Reason for admission: Acute uncomplicated appendicitis Condition: Stable Pertinent studies: Reviewed. Procedures: Laparoscopic appendectomy Hospital course: Patient is a 41-year-old female past medical history of hypertension morbid obesity who presented to the ED after worsening periumbilical and right lower quadrant tenderness. Patient states that she has been having issues with constipation and generalized abdominal pain for approximately 3 weeks. She also described that the pain over the previous couple of days has gotten significantly worse, which is what prompted her to present to the ED. In the ED, patient was found to be hemodynamically stable and labs were unremarkable. The patient underwent CT abdomen and pelvis that revealed uncomplicated acute appendicitis. Patient was admitted for surgical intervention. Patient underwent laparoscopic appendectomy on 03/17/2022, and the patient tolerated the procedure well. The patient follow with general surgery in approximately 2 weeks. Patient is medically clear for discharge. Disposition: 01 HOME / SELF CARE / HOMELESS Final Discharge Diagnosis (Prints w/discharge instructions): Acute uncomplicated appendicitis status post laparoscopic appendectomy, hypertension, morbid obesi ty Time spent for discharge: 45 min Core Measure Documentation - Palliative Care Palliative Care/ Comfort Measures: Not Applicable - Core Measures Any of the following diagnoses?: none Exam - Constitutional Vitals: Temp Pulse Resp BP Pulse Ox 97.8 F 69 18 130/75 100 03/18/22 12:15 03/18/22 12:15 03/18/22 12:15 03/18/22 12:15 03/18/22 12:15 General appearance: Present: no acute distress, well-nourished, obese - EENT Eyes: Present: PERRL, EOM intact ENT: hearing intact, clear oral mucosa, dentition normal - Neck Neck: Present: supple, normal ROM - Respiratory Respiratory effort: normal Respiratory: bilateral: CTA - Cardiovascular Rhythm: regular Heart Sounds: Present: S1 & S2 - Extremities Extremities: no ischemia, pulses intact, pulses symmetrical, No edema, normal temperature, normal color, Full ROM Peripheral Pulses: within normal limits - Abdominal General gastrointestinal: Present: soft, tender (Appropriate tenderness at incision sites), non-distended, normal bowel sounds Female genitourinary: Present: deferred - Rectal Rectal Exam: deferred - Integumentary Integumentary: Present: clear, warm, dry - Musculoskeletal Musculoskeletal: strength equal bilaterally - Psychiatric Psychiatric: appropriate mood/affect, intact judgment & insight, memory intact, cooperative - Neurologic Neurologic: CNII-XII intact, moves all extremities - Allied Health Allied health notes reviewed: nursing Plan Activity: advance as tolerated Diet: low salt Additional Instructions: Patient is a 41-year-old female past medical history of hypertension morbid obesity who presented to the ED after worsening periumbilical and right lower quadrant tenderness. Patient states that she has been having issues with constipation and generalized abdominal pain for approximately 3 weeks. She also described that the pain over the previous couple of days has gotten significantly worse, which is what prompted her to present to the ED. In the ED, patient was found to be hemodynamically stable and labs were unremarkable. The patient underwent CT abdomen and pelvis that revealed uncomplicated acute appendicitis. Patient was admitted for surgical intervention. Patient underwent laparoscopic appendectomy on 03/17/2022, and the patient tolerated the procedure well. The patient follow with general surgery in approximately 2 weeks. Patient is medically clear for discharge. Care Plan Goals: Patient is medically cleared for discharge. Assessment: Patient is a 41-year-old female past medical history of hypertension morbid obesity who presented to the ED after worsening periumbilical and right lower quadrant tenderness. Patient states that she has been having issues with constipation and generalized abdominal pain for approximately 3 weeks. She also described that the pain over the previous couple of days has gotten significantly worse, which is what prompted her to present to the ED. In the ED, patient was found to be hemodynamically stable and labs were unremarkable. The patient underwent CT abdomen and pelvis that revealed uncomplicated acute appendicitis. Patient was admitted for surgical intervention. Patient underwent laparoscopic appendectomy on 03/17/2022, and the patient tolerated the procedure well. The patient follow with general surgery in approximately 2 weeks. Patient is medically clear for discharge. Follow up with: BENNETT OHARA MD [Primary Care Provider] - 3-5 Days
--- NOTE | 2022-03-18 16:04 | Progress Note ---
Assessment and Plan Postop day #1 status post laparoscopic appendectomy for acute appendicitis. Patient is afebrile and stable tolerating diet. Patient can be discharged from a general surgery perspective. Patient to follow-up in the office in 2 weeks for follow-up appointment. Patient should advance activity and diet as tolerated. Subjective Date of service: 03/18/22 Narrative: No acute events overnight. Patient says that the pain she was feeling before surgery is improved greatly. She denies any nausea vomiting, seeing more. Objective Vital Signs - 12hr 03/18/22 03/18/22 03/18/22 05:00 10:47 12:15 Temperature 97.8 F Pulse Rate 69 Respiratory 17 18 Rate Blood Pressure 130/75 O2 Sat by Pulse 99 98 100 Oximetry - General physical appearance well developed, no distress, no pain - Eyes PERRL - ENT no hearing loss - Respiratory normal expansion, normal respiratory effort - Abdomen soft, not distended, other (Incisions clean dry and intact, appropriately tender to palpation) - Labs 03/18/22 05:14 03/18/22 05:14 Diabetes panel 03/18/22 Range/Units 05:14 Sodium 138 (137-145) mmol/L Potassium 4.2 (3.6-5.0) mmol/L Chloride 103.2 (98-107) mmol/L Carbon Dioxide 24 (22-30) mmol/L BUN 6 L (7-17) mg/dL Creatinine 0.5 L (0.6-1.2) mg/dL Glucose 96 (65-100) mg/dL Calcium 9.4 (8.4-10.2) mg/dL Calcium panel 03/18/22 Range/Units 05:14 Calcium 9.4 (8.4-10.2) mg/dL Pituitary panel 03/18/22 Range/Units 05:14 Sodium 138 (137-145) mmol/L Potassium 4.2 (3.6-5.0) mmol/L Chloride 103.2 (98-107) mmol/L Carbon Dioxide 24 (22-30) mmol/L BUN 6 L (7-17) mg/dL Creatinine 0.5 L (0.6-1.2) mg/dL Glucose 96 (65-100) mg/dL Calcium 9.4 (8.4-10.2) mg/dL Adrenal panel 03/18/22 Range/Units 05:14 Sodium 138 (137-145) mmol/L Potassium 4.2 (3.6-5.0) mmol/L Chloride 103.2 (98-107) mmol/L Carbon Dioxide 24 (22-30) mmol/L BUN 6 L (7-17) mg/dL Creatinine 0.5 L (0.6-1.2) mg/dL Glucose 96 (65-100) mg/dL Calcium 9.4 (8.4-10.2) mg/dL
== END 2022-03-18 14:25 | disposition home or self-care (01) | DRG 336 ==
LOC: ED 04:47 → 3A 08:38
PROVIDERS: ADMIT Student in an Organized Health Care Education/Training Program; ATTEND Student in an Organized Health Care Education/Training Program
PROC: 0DTJ4ZZ Resection of Appendix, Percutaneous Endoscopic Approach (ICD-10-PCS; principal; 2022-03-17)
PROC: 0DNU4ZZ Release Omentum, Percutaneous Endoscopic Approach (ICD-10-PCS; 2022-03-17)
DX: K35.80 Unspecified acute appendicitis (principal); Z68.43 Body mass index [BMI] 50.0-59.9, adult; I10 Essential (primary) hypertension; E66.01 Morbid (severe) obesity due to excess calories; M19.90 Unspecified osteoarthritis, unspecified site; F41.9 Anxiety disorder, unspecified
CPT/HCPCS: 36415; 74176; 80048; 80053; 81001; 83690; 84703; 85025; 85610; 88304; 96365; 96366; 96375; 99285; G0378; J1815; J3490; J1100; J1170; J1885; J2405; J2543; J2704; J2710; J7030; J7070